=== PATIENT | female | born 1970 | race Caucasian/White ===

== ENCOUNTER → 2016-03-25 | Day surgery (SDC) | payer MEDICARE, OTHER ==
[2016-03-22 12:25] VITALS: BMI 27.4
[2016-03-25 14:16] VITALS: BP 124/83; PULSE 60; RESP 16; TEMP 97.6
--- NOTE | 2016-03-25 19:51 | P.PCN ---
Date of Procedure: 03/25/16 Procedure(s) Performed: OPERATION: Intrathecal pain pump analysis, programming and reprogramming, and intrathecal pain pump refill. PREOPERATIVE DIAGNOSES: 1. near empty intrathecal pain pump time for refill. 2. opioid tolerance 3. failed back surgery syndrome lumbar area POSTOPERATIVE DIAGNOSES: 1. near empty intrathecal pain pump time for refill. 2. 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 CONDITION: Stable. Description of the procedure; Intrathecal pain pump analysed ,it showed patient currently had reservoir volume[8.3 ] mL. The patient is receiving medication hydromorphone concentration 16 mg/ ml, and bupivacaine concentration [12 mg/ml. and baclofen 125 g per mL Patient receiving daily dose of hydromorphone 5.9 mg per day and bupivacaine 4.4 mg/day. And baclofen 46 g per day Pain is The location of the pump ( Right Buttuck ) Prepped with chlorhexidine x3 , then using 22-gauge needle [employer] kit advanced through the pump port, Total of [11 ] ml removed from the pump, the pump refills with the new medication total volume [40 ] ml . The concentration hydromorphone 16 mg /ml , and the bupivacaine concentration [12 ] mg/ml., Baclofen 125 g per mL The patient will continue to see the daily dose hydromorphone 5.9 mg/day and bupivacaine [4.4 ] mg/day and baclofen 46 g per day and patient will follow up with the pain clinic in 3 months.
== END ==
LOC: PNWHC3 13:35
PROVIDERS: ATTEND Specialist
DX: Z45.1 Encounter for adjustment and management of infusion pump (principal); Z79.891 Long term (current) use of opiate analgesic; M96.1 Postlaminectomy syndrome, not elsewhere classified
CPT/HCPCS: 62370

== ENCOUNTER → 2016-06-15 | Day surgery (SDC) | payer MEDICARE, OTHER ==
[2016-06-15 12:30] VITALS: BP 108/73; PULSE 82; RESP 16; TEMP 98
--- NOTE | 2016-06-15 12:55 | P.PCN ---
Date of Procedure: 06/15/16 Anesthesia: none Surgeon: Eddie Awad Pathology: none sent Condition: stable Disposition: no change Description of Procedure: PROCEDURE: Intrathecal pain pump analysis, programming and reprogramming, and intrathecal pain pump refill. PREOPERATIVE DIAGNOSES: 1. near empty intrathecal pain pump time for refill. 2. opioid tolerance 3. lumbar PLPS 4. sacroiliitis, lumbar spondylosis without myelopathy POSTOPERATIVE DIAGNOSES: same ANESTHESIA: None. CONDITION: Stable. INDICATION: This is a 46-year-old patient with a long history of chronic pain secondary to lumbar PLPS, sacroiliitis, and lumbar spondylosis. Patient previously had an intrathecal pump placed, which is now close to empty, and patient presents for refill today. Patient denies any side effects of the intrathecal medication, including new weakness, new numbness, excessive drowsiness or sleepiness, nausea/vomiting, weight gain, or night sweats. Patient also denies suicidal ideation, and reports that the current pain medication is helping control the chronic pain and improve the patient's activities of daily living. DESCRIPTION: The intrathecal pain pump was analyzed and showed that the patient currently has reservoir volume of [9.8] mL. The patient is receiving intrathecal hydromorphone PF at concentration [16] mg/ ml, baclofen 125 mcg/ml and bupivacaine PF at concentration [12] mg/ml. Patient receiving daily dose of hydromorphone [5.9] mg/day, baclofen [46] mcg/ day, and bupivacaine [4.4] mg/day. The location of the pump (right buttock) was prepped with chlorhexidine x3. Then, the 22-gauge needle from the [employer] kit was advanced through the pump port. Total of [13] ml was removed from the pump, and it was refilled with the new medication total volume of [40] ml of a solution containing intrathecal hydromorphone PF at concentration [16] mg/ ml, baclofen 125 mcg/ml and bupivacaine PF at concentration [12] mg/ml The patient will continue with the same daily dose hydromorphone [5.9] mg/day , baclofen [46] mcg/day, and bupivacaine [4.4] mg/day. The patient is is still having back pain and did get benefit from SI RFA procedures in the past. She will be scheduled for a left then right SI RFA in approximately two months.
== END | disposition home or self-care (01) ==
LOC: PNWHC3 12:02
PROVIDERS: ATTEND Anesthesiology
DX: Z45.49 Encounter for adjustment and management of other implanted nervous system device (principal); M96.1 Postlaminectomy syndrome, not elsewhere classified; M46.1 Sacroiliitis, not elsewhere classified; M47.816 Spondylosis without myelopathy or radiculopathy, lumbar region; Z79.891 Long term (current) use of opiate analgesic; Z79.899 Other long term (current) drug therapy
CPT/HCPCS: 62370

== ENCOUNTER → 2016-09-20 | Day surgery (SDC) | payer MEDICARE, OTHER ==
[2016-09-20 11:47] VITALS: BP 110/81; PULSE 95; RESP 18; TEMP 98.2
--- NOTE | 2016-09-20 12:08 | P.PCN ---
Date of Procedure: 09/20/16 Preoperative Diagnosis: Postoperative Diagnosis: Procedure(s) Performed: Implants: Surgeon: Eddie Awad Pathology: none sent Condition: stable Disposition: no change Indications for Procedure: Operative Findings: Description of Procedure: PROCEDURE: Intrathecal pain pump analysis, programming and reprogramming, and intrathecal pain pump refill. PREOPERATIVE DIAGNOSES: 1. near empty intrathecal pain pump time for refill. 2. opioid tolerance 3. lumbar PLPS 4. sacroiliitis, lumbar spondylosis without myelopathy POSTOPERATIVE DIAGNOSES: same ANESTHESIA: None. CONDITION: Stable. INDICATION: This is a 46-year-old patient with a long history of chronic pain secondary to lumbar PLPS, sacroiliitis, and lumbar spondylosis. Patient previously had an intrathecal pump placed, which is now close to empty, and patient presents for refill today. Patient denies any side effects of the intrathecal medication, including new weakness, new numbness, excessive drowsiness or sleepiness, nausea/vomiting, weight gain, or night sweats. Patient also denies suicidal ideation, and reports that the current pain medication is helping control the chronic pain and improve the patient's activities of daily living. DESCRIPTION: The intrathecal pain pump was analyzed and showed that the patient currently has reservoir volume of [4.3] mL. The patient is receiving intrathecal hydromorphone PF at concentration [16] mg/ ml, baclofen 125 mcg/ml and bupivacaine PF at concentration [12] mg/ml. Patient receiving daily dose of hydromorphone [5.9] mg/day, baclofen [46] mcg/ day, and bupivacaine [4.4] mg/day. The location of the pump (right buttock) was prepped with chlorhexidine x3. Then, the 22-gauge needle from the [employer] kit was advanced through the pump port. Total of [7] ml was removed from the pump, and it was refilled with the new medication total volume of [40] ml of a solution containing intrathecal hydromorphone PF at concentration [16] mg/ ml, baclofen 125 mcg/ml and bupivacaine PF at concentration [12] mg/ml The patient will continue with the same daily dose hydromorphone [5.9] mg/day , baclofen [46] mcg/day, and bupivacaine [4.4] mg/day. The patient is is still having back pain and did get benefit from SI RFA procedures in the past. She will be scheduled for a left then right SI RFA in approximately three to four months.
== END ==
LOC: PNWHC3 11:30
PROVIDERS: ATTEND Anesthesiology
DX: G89.29 Other chronic pain (principal); M46.1 Sacroiliitis, not elsewhere classified; M47.816 Spondylosis without myelopathy or radiculopathy, lumbar region; Z79.891 Long term (current) use of opiate analgesic
CPT/HCPCS: 62370

== ENCOUNTER → 2016-12-14 | Day surgery (SDC) | payer MEDICARE, OTHER ==
[2016-12-13 10:18] VITALS: BMI 26.2
[2016-12-14 11:25] VITALS: BP 112/82; PULSE 93; RESP 18; TEMP 98.1
--- NOTE | 2016-12-14 11:55 | P.PN ---
Progress Note - Text Progress Note Date: 12/14/16 PROCEDURE: Intrathecal pain pump analysis, programming and reprogramming, and intrathecal pain pump refill. PREOPERATIVE DIAGNOSES: 1. near empty intrathecal pain pump time for refill. 2. opioid tolerance 3. lumbar PLPS 4. sacroiliitis, lumbar spondylosis without myelopathy POSTOPERATIVE DIAGNOSES: same ANESTHESIA: None. CONDITION: Stable. INDICATION: This is a 46-year-old patient with a long history of chronic pain secondary to lumbar PLPS, sacroiliitis, and lumbar spondylosis. Patient previously had an intrathecal pump placed, which is now close to empty, and patient presents for refill today. Patient denies any side effects of the intrathecal medication, including new weakness, new numbness, excessive drowsiness or sleepiness, nausea/vomiting, weight gain, or night sweats. Patient also denies suicidal ideation, and reports that the current pain medication is helping control the chronic pain and improve the patient's activities of daily living. DESCRIPTION: The intrathecal pain pump was analyzed and showed that the patient currently has reservoir volume of [8.7] mL. The patient is receiving intrathecal hydromorphone PF at concentration [16] mg/ ml, baclofen 125 mcg/ml and bupivacaine PF at concentration [12] mg/ml. Patient receiving daily dose of hydromorphone [5.9] mg/day, baclofen [46] mcg/ day, and bupivacaine [4.4] mg/day. The location of the pump (right buttock) was prepped with chlorhexidine x3. Then, the 22-gauge needle from the [employer] kit was advanced through the pump port. Total of [11.5] ml was removed from the pump, and it was refilled with the new medication total volume of [40] ml of a solution containing intrathecal hydromorphone PF at concentration [16] mg/ ml, baclofen [125] mcg/ml and bupivacaine PF at concentration [12] mg/ml The patient will continue with the same daily dose hydromorphone [5.9] mg/day , baclofen [46] mcg/day, and bupivacaine [4.4] mg/day. The patient is is still having back pain and did get benefit from both SI joint injections and SI RFA procedures in the past. She will be scheduled for a left (then right) SI RFA in approximately three to four months. She is continuing to get her [place] pills from her PCP. Patient will follow up for procedure as scheduled.
== END ==
LOC: PNWHC3 11:11
PROVIDERS: ATTEND Anesthesiology
DX: G89.29 Other chronic pain (principal); M96.1 Postlaminectomy syndrome, not elsewhere classified; M46.1 Sacroiliitis, not elsewhere classified; M47.816 Spondylosis without myelopathy or radiculopathy, lumbar region; Z79.891 Long term (current) use of opiate analgesic
CPT/HCPCS: 62370

== ENCOUNTER 2017-01-24 07:29 | Day surgery (SDC) | payer MEDICARE, OTHER ==
[2017-01-20 13:10] VITALS: BMI 27.9
[~2017-01-24 07:29] MED LIST: LACTATED RINGERS 1,000 ML IV SCH
[2017-01-24] MEDS ORDERED: LIDOCAINE 1% 20 ML VIAL (10MG/ML) FOR IV START INTRADERMA ONE (07:44)
[2017-01-24 08:03] VITALS: RESP 16; TEMP 97.5
[2017-01-24 08:04] LABS: Glucose,Whole Blood 94 mg/dL (75-99)
[2017-01-24] MEDS ORDERED: KETOROLAC 30 MG/ML 1 ML VIAL IVP ONE (08:41)
--- NOTE | 2017-01-24 09:33 | P.PCN ---
Date of Procedure: 01/24/17 Procedure(s) Performed: PREOPERATIVE DIAGNOSIS: 1-Lumbosacral spondylosis with facet arthropathy without myelopathy. 2-Bilateral sacroiliit. 3-failed back surgery syndrome lumbar area post operative Diagnosis: . Same as preoperative diagnosis PROCEDURES: 1- Left radiofrequency thermocoagulation/ablation of the L5 dorsal ramus. 2- Left multi-site radiofrequency thermocoagulation/ablation of the S1, S2, lateral branchs. ( I did not performe the RFA for S# because I was not able to visualize the S3 foramina ) The procedure was performed using fluoroscopic guidance during needle placement to assure proper position and maximize safety . ANESTHESIA: LOCAL ANESTHESIA and IV sedation with versed 2 mg and Fentanyle 100 mcg EBL: NONE INDICATION/MEDICAL NECESSITY: History of low back pain secondary to sacroiliitis and lumbosacral arthropathy unresponsive to more conservative treatments. The patient reported more than 50 % relief of pain symptoms following 2 previous diagnostic blocks with Bupivacaine., With radiofrequency ablation of the sacroiliac joint and she had excellent pain relief, for more than 6 months and she is here for repeat radiofrequency of the sacroiliac joint. PROCEDURE DESCRIPTION: The patient was seen and identified in the preoperative area. Risks, benefits, complications, and alternatives were discussed with the patient. The patient agreed to proceed with the procedure and signed the consent. Vital signs were checked before and after the procedure and they remained stable. Patient ambulated to the procedure room and time out was completed. The patient was placed in the prone position on the procedure table and a pillow was placed under the abdomen to reduce lumbar lordosis. The lumbosacral area was prepped and draped in the usual sterile fashion. Critical pause was taken. L5 Dorsal Ramus RF: Using right oblique fluoroscopy, the junction of the transverse process and the superior articular process of the left S1 vertebra, which correspond to the fluoroscopic image of the "eye of the Jarad dog" was identified. Subsequently, a 10-cm 20 -gauge radiofrequency cannula with a 10-mm active tip was advanced under fluoroscopic guidance until contact was made with periosteum. At this level, the Sensory testing of the L5 dorsal ramus was performed at 50 Hz and 0 to 1 volt with production of concordant pain starting at 0.5 volt. Motor stimulation was done at 2.5 Hz with stimulation of mulitifidus muscle contration . No radicular symptoms or paresthesias were produced during the testing. Subsequently, the L5 dorsal ramus was subjected to a radiofrequency ablation at 80 degree celsius for 90 seconds . after 0.5% Bupivacaine 1 ml injected at each level after negative aspirations . The needle was withdrawn intact the procedure was repeated on the left side using the same technique. S1, S3, Lateral Branch RF: The lateral margins of the left S1, S2, foramina were identified using AP fluoroscopy. Under fluoroscopic guidance, three 10-cm 20 -gauge radiofrequency cannula with a 10-mm active tip were inserted at 8-10 mm peripheral to the posterior S1 foramen, at various locations using clock-face coordinates. The center of the clock was registered at the lateral margin of the foramen. The 9: 30, 8:00, and 6:30 oclock positions were used. At this level, the sensory testing of the S1 lateral branch was performed at 50 Hz and 0 to 1 volt at the three levels with production of concordant pain starting at 0.5 volt. Motor stimulation was done at 2.5 Hz. No radicular symptoms or paresthesias were produced during the testing. Subsequently, the S1 lateral branch was subjected to a radiofrequency ablation at a mode of 90 seconds at 80 degrees Celsius at the 3 levels after negative motor and sensory testing and after injecting 0.5 ml of preservative free Bupivacaine 0.5 %. The same procedure was performed at the level of the S2 foramen. The needle was withdrawn intact after each injection. COMPLICATIONS: The patient tolerated the procedure well without any acute complications. DISPOSTION/PLAN: The patient ambulated to the recovery area after the procedure in a stable condition for observation. Patient was reexamined prior to discharge. Patient was observed for 30 minutes in the recovery area and was discharged home, accompanied by an adult, after meeting discharged criteria. Discharge instructions were give to the patient by the staff. Patient was specifically instructed not to drive today and to rest for the rest of the day. The patient will schedule a follow up visit in the clinic in weeks or earlier if needed. total of 7 ml of marcaine 0.5% mixed with toradol 30 mg used for the procedure
[2017-01-24] MEDS ORDERED: IV FLUID CONTINUATION 1,000 ML IV ONE (09:34)
--- NOTE | 2017-01-24 09:59 | FL ---
Fluoroscopy HISTORY: Pain 12 seconds fluoroscopy time supplied to the referring clinician. 7 intraoperative C-arm images docum ent the procedure. See dictated report from anesthesia.
[2017-01-24 10:00] VITALS: BP 133/87; PULSE 85
== END 2017-01-24 10:16 | disposition home or self-care (01) ==
LOC: ORPAIN 07:29
PROVIDERS: ATTEND Specialist
DX: M46.96 Unspecified inflammatory spondylopathy, lumbar region (principal); M46.1 Sacroiliitis, not elsewhere classified; M96.1 Postlaminectomy syndrome, not elsewhere classified; M47.817 Spondylosis without myelopathy or radiculopathy, lumbosacral region; Z88.5 Allergy status to narcotic agent; Z88.0 Allergy status to penicillin; Z88.8 Allergy status to other drugs, medicaments and biological substances
CPT/HCPCS: 81025; 64640 ×3; 64635; J2250; J3010; J1885; 99152; 99153

== ENCOUNTER 2017-03-02 09:50 | Day surgery (SDC) | payer MEDICARE, OTHER ==
[2017-02-28 11:16] VITALS: BMI 25.7
[2017-03-02 10:08] VITALS: RESP 16; TEMP 97.2
[2017-03-02] MEDS ORDERED: LIDOCAINE 1% 20 ML VIAL (10MG/ML) FOR IV START INTRADERMA ONE (10:16)
[2017-03-02] MEDS ORDERED: LACTATED RINGERS 1,000 ML IV ONE (10:16)
[2017-03-02] MEDS ORDERED: IV FLUID CONTINUATION 1,000 ML IV ONE (11:08)
--- NOTE | 2017-03-02 11:17 | FL ---
EXAMINATION TYPE: FL guided pain mgmt statistic DATE OF EXAM: 03/02/2017 HISTORY: Flouroscopy time 9 seconds of fluoroscopy provided. IMPRESSION: 1. Fluoroscopy time.
[2017-03-02 11:37] VITALS: BP 106/69; PULSE 95
--- NOTE | 2017-03-02 14:32 | P.PCN ---
Date of Procedure: 03/02/17 Surgeon: Eddie Awad Pathology: none sent Condition: stable Disposition: PACU Description of Procedure: PREOPERATIVE DIAGNOSIS: Lumbar spondylosis without myelopathy and facet arthropathy POSTOPERATIVE DIAGNOSIS: Lumbar spondylosis without myelopathy and facet arthropathy PROCEDURES: Right Radiofrequency thermocoagulation, L3-L4, L4-L5, and L5-S1 medial branch, with fluoroscopic guidance. ANESTHESIA: 1% lidocaine plain; Conscious sedation with versed/fentanyl EBL: Minimal PROCEDURE INDICATION: The patient with low back pain secondary to lumbar arthropathy who had more than 50% relief of pain with previous diagnostic lumbar medial branch block with bupivacaine. Patient presents for RFA today; no use of blood thinners. PROCEDURE DESCRIPTION / TECHNIQUE: The patient was seen and identified in the preoperative area. Risks, benefits, complications, and alternatives were discussed with the patient (including but not limited to incomplete pain relief , bleeding, infection, nerve damage, and allergies to medications), the patient agreed to proceed with the procedure and signed the consent after all questions were answered. Patient was taken to the OR and time out was completed to verify proper patient , position, laterality of pain, and allergies. Pt was placed in the prone position. IV was started. Vital signs remained stable throughout the procedure. A pillow was placed under the patients chest to decrease lordosis. The lumbosacral area was prepped and draped in the usual sterile fashion. Vital signs were closely monitored during the procedure. Conscious sedation was used during the procedure to decrease patients anxiety. Using AP and then oblique fluoroscopy, the intrathecal pump and catheter were identified and avoided throughout the process of the procedure. Then, again using fluoroscopy, the eye of the Jarad dog corresponding to the connection between the superior and transverse articular processes of right L3, L4, L5 and top of the sacrum were identified, marked, and localized with 1% lidocaine. Subsequently, a 18 gauge, 100-mm radiofrequency cannula with a 10- mm active tip was advanced guided by fluoroscopy to each of the eyes of the Jarad dog at the levels of all four medial branches. Each site then underwent sensory testing at 50 Hz and 0 to 1 volt and motor testing at 2 Hz and 0 to 3 volt with local stimulation, but no radicular symptoms down the legs. Thereafter all four medial branch sites underwent radiofrequency thermocoagulation at 80 degrees Celsius for 90 seconds after injecting 0.5 ml of PF lidocaine 1%. After thermocoagulation, 1 ml of the block solution containing Kenalog 40 mg and 2 mL of preservative-free normal saline was injected at all four medial branch levels after negative aspiration of CSF and blood and with no paresthesias. Cannulas were retracted while injecting lidocaine 1% until the needles were removed. At the end of the procedure, the skin was cleansed and bandages were applied. COMPLICATIONS: No acute complications. DISPOSITION / PLANS: The patient was placed in a supine position and transferred to the recovery area in a stable condition for observation and was discharged from the recovery room after meeting discharge criteria. Home discharge instructions given to the patient by the staff. The patient was reexamined prior to discharge and there were no issues. The patient will schedule a follow up in the clinic for pump refill in 2-3 weeks.
== END 2017-03-02 11:47 | disposition home or self-care (01) ==
LOC: ORPAIN 09:50
PROVIDERS: ATTEND Anesthesiology
DX: M47.816 Spondylosis without myelopathy or radiculopathy, lumbar region (principal); M46.96 Unspecified inflammatory spondylopathy, lumbar region; M96.1 Postlaminectomy syndrome, not elsewhere classified; I10 Essential (primary) hypertension; Z88.6 Allergy status to analgesic agent; Z88.0 Allergy status to penicillin; Z88.5 Allergy status to narcotic agent
CPT/HCPCS: 64635; 64636 ×2; 81025; J2250; J3010; 99152

== ENCOUNTER → 2017-03-15 | Day surgery (SDC) | payer MEDICARE, OTHER ==
[2017-03-09 11:19] VITALS: BMI 27.4
--- NOTE | 2017-03-15 12:55 | P.PN ---
Progress Note - Text Progress Note Date: 03/15/17 PROCEDURE: Intrathecal pain pump analysis, programming and reprogramming, and intrathecal pain pump refill. PREOPERATIVE DIAGNOSES: 1. near empty intrathecal pain pump time for refill. 2. opioid tolerance 3. lumbar PLPS 4. sacroiliitis, lumbar spondylosis without myelopathy POSTOPERATIVE DIAGNOSES: same ANESTHESIA: None. CONDITION: Stable. INDICATION: This is a 46-year-old patient with a long history of chronic pain secondary to lumbar PLPS, sacroiliitis, and lumbar spondylosis. Patient previously had an intrathecal pump placed, which is now close to empty, and patient presents for refill today. Patient denies any side effects of the intrathecal medication, including new weakness, new numbness, excessive drowsiness or sleepiness, nausea/vomiting, weight gain, or night sweats. Patient also denies suicidal ideation, and reports that the current pain medication is helping control the chronic pain and improve the patient's activities of daily living. DESCRIPTION: The intrathecal pain pump was analyzed and showed that the patient currently has reservoir volume of [8.7] mL. The patient is receiving intrathecal hydromorphone PF at concentration [16] mg/ ml, baclofen 125 mcg/ml and bupivacaine PF at concentration [12] mg/ml. Patient receiving daily dose of hydromorphone [5.9] mg/day, baclofen [46] mcg/ day, and bupivacaine [4.4] mg/day. The location of the pump (right buttock) was prepped with chlorhexidine x3. Then, the 22-gauge needle from the [employer] kit was advanced through the pump port. Total of [11.5] ml was removed from the pump, and it was refilled with the new medication total volume of [40] ml of a solution containing intrathecal hydromorphone PF at concentration [16] mg/ ml, baclofen [125] mcg/ml and bupivacaine PF at concentration [12] mg/ml. The patient will continue with the same daily dose hydromorphone [5.9] mg/day , baclofen [46] mcg/day, and bupivacaine [4.4] mg/day. The patient did get good relief from bilateral SI RFA, but is still having severe spasms in her low back. She is getting her oral medications from her primary care physician. She will return to our clinic for pump refill in approximately three months. For next refill, we will plan to increase baclofen to 60 mcg/day and keep other medications the same, as she is having increased muscle spasms.
[2017-03-15 23:26] VITALS: BP 118/78; PULSE 102; RESP 16; TEMP 97.9
== END ==
LOC: PNWHC3 11:58
PROVIDERS: ATTEND Anesthesiology
DX: G89.29 Other chronic pain (principal); M96.1 Postlaminectomy syndrome, not elsewhere classified; M46.1 Sacroiliitis, not elsewhere classified; M47.816 Spondylosis without myelopathy or radiculopathy, lumbar region; Z45.1 Encounter for adjustment and management of infusion pump; Z79.891 Long term (current) use of opiate analgesic
CPT/HCPCS: 62370

== ENCOUNTER → 2017-05-24 | Day surgery (SDC) | payer MEDICARE, OTHER ==
[2017-05-24 12:55] VITALS: BP 116/85; PULSE 92; RESP 18; TEMP 97.5
--- NOTE | 2017-05-24 13:21 | P.PN ---
Progress Note - Text Progress Note Date: 05/24/17 PROCEDURE: Intrathecal pain pump analysis, programming and reprogramming, and intrathecal pain pump refill. PREOPERATIVE DIAGNOSES: 1. near empty intrathecal pain pump time for refill. 2. opioid tolerance 3. lumbar PLPS 4. sacroiliitis, lumbar spondylosis without myelopathy POSTOPERATIVE DIAGNOSES: same ANESTHESIA: None. CONDITION: Stable. INDICATION: This is a 47-year-old patient with a long history of chronic pain secondary to lumbar PLPS, sacroiliitis, and lumbar spondylosis. Patient previously had an intrathecal pump placed, which is now close to empty, and patient presents for refill today. Patient denies any side effects of the intrathecal medication, including new weakness, new numbness, excessive drowsiness or sleepiness, nausea/vomiting, weight gain, or night sweats. Patient also denies suicidal ideation, and reports that the current pain medication is helping control the chronic pain and improve the patient's activities of daily living. DESCRIPTION: The intrathecal pain pump was analyzed and showed that the patient currently has reservoir volume of [14.2] mL. The patient is receiving intrathecal hydromorphone PF at concentration [16] mg/ ml, baclofen 125 mcg/ml and bupivacaine PF at concentration [12] mg/ml. Patient receiving daily dose of hydromorphone [5.9] mg/day, baclofen [46] mcg/ day, and bupivacaine [4.4] mg/day. The location of the pump (right buttock) was prepped with chlorhexidine x3. Then, the 22-gauge needle from the [employer] kit was advanced through the pump port. Total of [16] ml was removed from the pump, and it was refilled with the new medication total volume of [40] ml of a solution containing intrathecal hydromorphone PF at concentration [16] mg/ ml, baclofen [125] mcg/ml and bupivacaine PF at concentration [12] mg/ml. The patient will continue with the same daily dose hydromorphone [5.9] mg/day , baclofen [46] mcg/day, and bupivacaine [4.4] mg/day. The patient did get good relief from bilateral SI RFA, but is still having severe spasms in her low back. She is getting her oral medications from her primary care physician. She will return to our clinic for pump refill in approximately three months. For next refill, we will plan to increase baclofen to 60 mcg/day (increase baclofen concentration to 163 mcg/ml) and keep other medications the same, as she is having increased muscle spasms.
== END ==
LOC: PNWHC3 12:06
PROVIDERS: ATTEND Anesthesiology
DX: G89.29 Other chronic pain (principal); M96.1 Postlaminectomy syndrome, not elsewhere classified; M46.1 Sacroiliitis, not elsewhere classified; M47.816 Spondylosis without myelopathy or radiculopathy, lumbar region; Z79.891 Long term (current) use of opiate analgesic
CPT/HCPCS: 62370

== ENCOUNTER → 2017-07-10 | Outpatient (CLI) | payer MEDICARE, OTHER ==
--- NOTE | 2017-07-13 09:57 | MM ---
Reason for exam: screening (asymptomatic). History: Patient is postmenopausal and is nulliparous. Family history of breast cancer in maternal aunt and breast cancer in paternal aunt. Physical Findings: A clinical breast exam by your physician is recommended on an annual basis and results should be correlated with mammographic findings. MG Screening Mammo w CAD Bilateral CC and MLO view(s) were taken. No prior studies available for comparison. The breast tissue is extremely dense which could obscure a lesion on mammography. No significant changes when compared with prior studies. ASSESSMENT: Benign, BI-RAD 2 RECOMMENDATION: Routine screening mammogram of both breasts in 1 year.
== END | disposition home or self-care (01) ==
LOC: RADMAMWWP 11:40
PROVIDERS: ATTEND Family Medicine
DX: Z12.31 Encounter for screening mammogram for malignant neoplasm of breast (principal)
CPT/HCPCS: 77067

== ENCOUNTER → 2017-08-23 | Day surgery (SDC) | payer MEDICARE, OTHER ==
[2017-08-22 14:42] VITALS: BMI 25.7
[2017-08-23 12:28] VITALS: BP 123/69; PULSE 100; RESP 20
--- NOTE | 2017-08-23 12:38 | P.PN ---
Progress Note - Text Progress Note Date: 08/23/17 PROCEDURE: Intrathecal pain pump analysis, programming and reprogramming, and intrathecal pain pump refill. PREOPERATIVE DIAGNOSES: 1. near empty intrathecal pain pump time for refill. 2. opioid tolerance 3. lumbar PLPS 4. sacroiliitis, lumbar spondylosis without myelopathy POSTOPERATIVE DIAGNOSES: same ANESTHESIA: None. CONDITION: Stable. INDICATION: This is a 47-year-old patient with a long history of chronic pain secondary to lumbar PLPS, sacroiliitis, and lumbar spondylosis. Patient previously had an intrathecal pump placed, which is now close to empty, and patient presents for refill today. Patient denies any side effects of the intrathecal medication, including new weakness, new numbness, excessive drowsiness or sleepiness, nausea/vomiting, weight gain, or night sweats. Patient also denies suicidal ideation, and reports that the current pain medication is helping control the chronic pain and improve the patient's activities of daily living. DESCRIPTION: The intrathecal pain pump was analyzed and showed that the patient currently has reservoir volume of [6.5] mL. The patient is receiving intrathecal hydromorphone PF at concentration [16] mg/ ml, baclofen 125 mcg/ml and bupivacaine PF at concentration [12] mg/ml. Patient receiving daily dose of hydromorphone [5.9] mg/day, baclofen [46] mcg/ day, and bupivacaine [4.4] mg/day. The location of the pump (right buttock) was prepped with chlorhexidine x3. Then, the 22-gauge needle from the [employer] kit was advanced through the pump port. Total of [9] ml was removed from the pump, and it was refilled with the new medication total volume of [40] ml of a solution containing intrathecal hydromorphone PF at concentration [16] mg/ ml, baclofen [163] mcg/ml and bupivacaine PF at concentration [12] mg/ml. The patient will continue with the same daily dose hydromorphone [5.9] mg/day , baclofen [60] mcg/day, and bupivacaine [4.4] mg/day. The patient did get good relief from bilateral SI RFA, but is still having severe spasms in her low back. She is getting her oral medications from her primary care physician. She will return to our clinic for pump refill in approximately three months. Will order CT scan of thoracic spine to discuss further options.
== END ==
LOC: PNWHC3 12:06
PROVIDERS: ATTEND Anesthesiology
DX: G89.29 Other chronic pain (principal); Z45.1 Encounter for adjustment and management of infusion pump; M96.1 Postlaminectomy syndrome, not elsewhere classified; M46.1 Sacroiliitis, not elsewhere classified; M47.816 Spondylosis without myelopathy or radiculopathy, lumbar region; Z79.891 Long term (current) use of opiate analgesic
CPT/HCPCS: 62370

== ENCOUNTER → 2017-11-08 | Day surgery (SDC) | payer MEDICARE, OTHER ==
[2017-11-08 11:34] VITALS: BP 117/75; PULSE 83; RESP 16
--- NOTE | 2017-11-08 12:42 | P.PCN ---
Date of Procedure: 11/08/17 Procedure(s) Performed: PROCEDURE: Intrathecal pain pump analysis, programming and reprogramming, and intrathecal pain pump refill. PREOPERATIVE DIAGNOSES: 1. near empty intrathecal pain pump time for refill. 2. opioid tolerance 3. lumbar PLPS 4. sacroiliitis, lumbar spondylosis without myelopathy POSTOPERATIVE DIAGNOSES: same ANESTHESIA: None. CONDITION: Stable. INDICATION: This is a 47-year-old patient with a long history of chronic pain secondary to lumbar PLPS, sacroiliitis, and lumbar spondylosis. Patient previously had an intrathecal pump placed, which is now close to empty, and patient presents for refill today. Patient denies any side effects of the intrathecal medication, including new weakness, new numbness, excessive drowsiness or sleepiness, nausea/vomiting, weight gain, or night sweats. Patient also denies suicidal ideation, and reports that the current pain medication is helping control the chronic pain and improve the patient's activities of daily living, patient complaining of increased pain in the mid back area upper back area. We will order computed tomography scan of the thoracic spine and she is here today to discuss the results of the computed tomography scan, I reviewed the report and it showed the patient had multilevel thoracic degenerative disc disease and thoracic spondylosis with facet arthropathy T6 7 and T7 8,. DESCRIPTION: The intrathecal pain pump was analyzed and showed that the patient currently has reservoir volume of [11.6] mL. The patient is receiving intrathecal hydromorphone PF at concentration [16] mg/ ml, baclofen 163 mcg/ml and bupivacaine PF at concentration [12] mg/ml. Patient receiving daily dose of hydromorphone [5.9] mg/day, baclofen [60 ] mcg /day, and bupivacaine [4.4] mg/day. The location of the pump (right buttock) was prepped with chlorhexidine x3. Then , the 22-gauge needle from the [employer] kit was advanced through the pump port.Total of [13 ] ml was removed from the pump, and it was refilled with the new medication total volume of [40] ml of a solution containing intrathecal hydromorphone PF at concentration [16] mg/ ml, baclofen [163] mcg/ml and bupivacaine PF at concentration [12] mg/ml. The patient will continue with the same daily dose hydromorphone [5.9] mg/day , baclofen [60] mcg/day, and bupivacaine [4.4] mg/day. Patient will be scheduled to have diagnostic medial branch block thoracic area T67/ T7 8/ and T8 9 and bilaterally, will be done twice and if she had more than 50% improvement in her upper back pain, then she would be good candidate to have radiofrequency ablation of the thoracic medial branch, procedure risk and benefits and alternatives discussed with the patient and she agreed with the preceding.
== END ==
LOC: PNWHC3 10:55
PROVIDERS: ATTEND Specialist
DX: G89.29 Other chronic pain (principal); Z45.1 Encounter for adjustment and management of infusion pump; M96.1 Postlaminectomy syndrome, not elsewhere classified; M46.1 Sacroiliitis, not elsewhere classified; M47.816 Spondylosis without myelopathy or radiculopathy, lumbar region; Z79.891 Long term (current) use of opiate analgesic
CPT/HCPCS: 62370

== ENCOUNTER 2017-11-22 06:31 | Day surgery (SDC) | payer MEDICARE, OTHER ==
[2017-11-17 11:02] VITALS: BMI 25.7
[2017-11-22 06:44] VITALS: TEMP 97.6
[2017-11-22] MEDS ORDERED: LIDOCAINE 1% 20 ML VIAL (10MG/ML) FOR IV START INTRADERMA ONE (06:49)
[2017-11-22] MEDS ORDERED: IV FLUID CONTINUATION 1,000 ML IV ONE ×2 (07:17)
--- NOTE | 2017-11-22 07:27 | P.PCN ---
Date of Procedure: 11/22/17 Surgeon: Janak Rivera Description of Procedure: PREOPERATIVE DIAGNOSIS : Thoracic spondylosis with Facet Arthropathy without myelopathy POSTOPERATIVE DIAGNOSIS: same PROCEDURE: Diagnostic thoracic medial branch block with fluoroscopy at bilateral T6, T7, T8 ANESTHESIA: Local anesthetic; IV sedation with 2 mg of midazolam as limb and 100 mg of fentanyl Surgeon: Janak Rivera MD PROCEDURE INDICATION: This a very pleasant 47-year-old woman with a history of intractable mid back pain who presents today for diagnostic thoracic medial branch nerve blocks. PROCEDURE DESCRIPTION: The patient was identified and evaluated in the preop holding area , risks and benefits and possible complications of the procedure and alternative were discussed with the patient, and the patient agreed to proceed with the procedure and signed the consent IV was started and vital signs monitored during the procedure and fluoroscopy was used to maximize the benefit and accuracy of the needle placement, and sedation was given to decrease patient anxiety, patient was taken to the procedure room and placed in prone position vital signs monitored in the back prepped. Under strict sterile technique using a right oblique fluoroscopy ,the junction of the transverse process and the superior articulating process of the vertebral body which corresponding to the fluoroscopy image of the eye of the Jarad dog on the block side for the medial branches and subsequently , a 25-gauge 3.5 inch Quincke-type needles was placed at the junction of the base of the transverse process and the superior articular process at the appropriate level, and the needle was advanced until the periosteum contacted, needle placement confirmed with AP oblique and lateral view and after appropriate needle placement confirmed, and after negative aspiration, 0.5 mL of Marcaine 0.5% was injected at each level and the needle subsequently removed. At the end of the procedure and the needles removed and a bandage applied after the skin was cleaned the cleaning solution patient taken to recovery room in stable condition and monitors in the recovery room for 20-30 minutes and discharged home in stable condition after discharge criteria met and patient will follow up for repeat of this procedure in 2-4 weeks. If she received good benefit from both of these diagnostic blocks, I would recommend proceeding to radio frequency ablation. This plan was discussed with the patient.. EBL: Minimal COMPLICATION: None.
[2017-11-22 07:40] VITALS: BP 121/80; PULSE 78; RESP 18
--- NOTE | 2017-11-22 10:56 | FL ---
Fluoroscopy HISTORY: Pain 3 seconds fluoroscopy time supplied to the referring clinician. 1 intraoperative C-arm images docume nt the procedure. See dictated report from anesthesia.
== END 2017-11-22 07:49 | disposition home or self-care (01) ==
LOC: ORPAIN 06:31
PROVIDERS: ATTEND Pain Medicine Pain Medicine
DX: M47.814 Spondylosis without myelopathy or radiculopathy, thoracic region (principal); M96.1 Postlaminectomy syndrome, not elsewhere classified; M46.1 Sacroiliitis, not elsewhere classified; M47.816 Spondylosis without myelopathy or radiculopathy, lumbar region; G89.29 Other chronic pain; Z79.891 Long term (current) use of opiate analgesic; Z88.6 Allergy status to analgesic agent; Z88.5 Allergy status to narcotic agent; Z88.0 Allergy status to penicillin
CPT/HCPCS: 81025; 64490; 64491; J2250; J3010

== ENCOUNTER 2017-12-07 07:30 | Day surgery (SDC) | payer MEDICARE, OTHER ==
[2017-12-04 15:10] VITALS: BMI 24.7
[2017-12-07 08:30] VITALS: RESP 16; TEMP 97.4
[2017-12-07] MEDS ORDERED: LIDOCAINE 1% 20 ML VIAL (10MG/ML) FOR IV START INTRADERMA ONE (08:36)
--- NOTE | 2017-12-07 09:16 | P.PCN ---
Date of Procedure: 12/07/17 Procedure(s) Performed: PREOPERATIVE DIAGNOSIS : Thoracic spondylosis with Facet Arthropathy without myelopathy POSTOPERATIVE DIAGNOSIS: same PROCEDURE: Diagnostic thoracic medial branch block with fluoroscopy at bilateral T6, T7, T8 ( 3 Leveles ) ANESTHESIA:moderate sedation with 2 mg of midazolam , and 100 mg of fentanyl Surgeon: Janak Rivera MD PROCEDURE INDICATION: This a very pleasant 47-year-old woman with a history of intractable mid back pain who presents today for diagnostic thoracic medial branch nerve blocks. PROCEDURE DESCRIPTION: The patient was identified and evaluated in the preop holding area , risks and benefits and possible complications of the procedure and alternative were discussed with the patient, and the patient agreed to proceed with the procedure and signed the consent IV was started and vital signs monitored during the procedure and fluoroscopy was used to maximize the benefit and accuracy of the needle placement, and sedation was given to decrease patient anxiety, patient was taken to the procedure room and placed in prone position vital signs monitored in the back prepped. Under strict sterile technique using a right oblique fluoroscopy ,the junction of the transverse process and the superior articulating process of the vertebral body which corresponding to the fluoroscopy image of the eye of the Jarad dog on the block side for the medial branches and subsequently , a 25-gauge 3.5 inch Quincke-type needles was placed at the junction of the base of the transverse process and the superior articular process at the appropriate level, and the needle was advanced until the periosteum contacted, needle placement confirmed with AP oblique and lateral view and after appropriate needle placement confirmed, and after negative aspiration, 0.5 mL of Marcaine 0.5% was injected at each level and the needle subsequently removed. At the end of the procedure and the needles removed and a bandage applied after the skin was cleaned the cleaning solution patient taken to recovery room in stable condition and monitors in the recovery room for 20-30 minutes and discharged home in stable condition after discharge criteria met and patient will follow up for repeat of this procedure in 2-4 weeks. If she received good benefit from both of these diagnostic blocks, I would recommend proceeding to radio frequency ablation. This plan was discussed with the patient.. EBL: Minimal COMPLICATION: None.
[2017-12-07] MEDS ORDERED: IV FLUID CONTINUATION 1,000 ML IV ONE (09:23)
--- NOTE | 2017-12-07 09:35 | FL ---
EXAMINATION TYPE: FL guided pain mgmt statistic DATE OF EXAM: 12/07/2017 HISTORY: Flouroscopy time 28 seconds of fluoroscopy provided. IMPRESSION: 1. Fluoroscopy time.
[2017-12-07 10:00] VITALS: BP 124/80; PULSE 80
--- NOTE | 2017-12-07 10:19 | XR ---
EXAMINATION TYPE: XR chest 1V portable DATE OF EXAM: 12/07/2017 Comparison: None Clinical History: 47-year-old female status post pain management procedure, rule out pneumothorax Findings: The cardiomediastinal silhouette, aorta, and pulmonary vasculature are within normal limits. No pneu mothorax. There is some patchy left basilar opacity which may be part related to overlying soft tissu e. No pleural effusion. Impression: Some density at the left base may in part relate to overlying soft tissue. Consider follow-up to excl ude patchy atelectasis or developing infiltrate. No pneumothorax.
== END 2017-12-07 10:32 | disposition home or self-care (01) ==
LOC: ORPAIN 07:30
PROVIDERS: ATTEND Specialist
DX: M47.814 Spondylosis without myelopathy or radiculopathy, thoracic region (principal); Z88.5 Allergy status to narcotic agent; Z88.2 Allergy status to sulfonamides; Z88.0 Allergy status to penicillin; Z88.8 Allergy status to other drugs, medicaments and biological substances
CPT/HCPCS: 64492; 71045; 81025; 99152

== ENCOUNTER → 2018-01-09 | Outpatient (CLI) | payer MEDICARE, OTHER ==
[2018-01-09 13:08] VITALS: BP 124/80; PULSE 86; RESP 18
--- NOTE | 2018-01-09 15:22 | P.PAINPG ---
Subjective Progress Note Date: 01/09/18 This is a follow-up visit for this 47 years old female with a chronic history of severe midback pain and low back pain, she is diagnosed with thoracic spondylosis, thoracic facet arthropathy ,lumbar spondylosis with lumbar facet arthropathy, and sacroiliitis, patient had chronic severe low back pain also secondary to failed back surgery syndrome and lumbar area, she is on intrathecal pain therapy, and she continued to have severe low back pain, patient had diagnostic medial branch blocks thoracic area done recently, and she reported that the diagnostic medial branch blocks thoracic area helped her mid back pain significantly, her mid back pain improved more than 50% for short- term after each diagnostic medial branch blocks thoracic area, and also in the past we've done sacroiliac joint steroid injections, which was successful and later on it was followed with radiofrequency ablation of the sacroiliac joint, also we've done diagnostic medial branch block lumbar area and it was successful also on it was followed with radiofrequency ablation of the medial branch lumbar area, currently she reported that most of her pain is on the low back area localized in the left side and radiated to the left buttock area, she denies any motor or sensory deficit, she denies any fever or night sweats, she denies any change in the bowel movement or urination Objective - Vital Signs Vital signs: Vital Signs Temp Pulse 86 01/09/18 12:59 Resp 18 01/09/18 12:59 BP 124/80 01/09/18 12:59 Pulse Ox 97 01/09/18 12:59 Intake & Output 01/08/18 01/09/18 01/09/18 18:59 06:59 18:59 Weight 68.039 kg - Exam Physical Examinations : 1-Constitutiona : Cooperative , not in acute distress . 2-HEENT : nech ; supple , no Lymphadenopathy , normal thyroid size . eyes : no ptosis , no icterus, no photophobia . ENT : normal of hearing , normal oropharynx , no Thrush . 3- Respiratory : Chest clear to auscultations Bilaterally , no wheezing , no Rhonchi . 4- Cardiovascular : regular rate and rhythem , S1 , S2 , no S3 , no S4. 5- Gastrointestinal : abdomen soft no tenderness , bowel sounds , no organomegally . 6- Genitourinary : Defferred . 7- neurologic : Cranial nerve II to XII intact , no focal neurological deffecit . 8-psychatric : alert , oriented X 3 , appropriate affect , intact judgment and insight . 9-Lymphatic : no Lymphadenopathy . 10- musculoskeltal : Thoracic Spine positive Thoracic facet loading test . Lumber spine moter stegnth lower extremities , thigh and legs 5/5 Right side , 5/5 Left side deep tendon reflexes : normal Knee Jerk , normal ankle Jerk positive lumber facet Loading Test Range of motion of the lumbar spine Flexion 30 degrees, extension 10 degrees strait leg raising test negative bilaterally Fabere test negative bilaterally. Sever tenderness over the Sacroiliac joint on the Left sides Assessment and Plan Plan: Assessment and plan=1-chronic severe midback pain secondary to thoracic spondylosis patient had a good result after the diagnostic medial branch blocks thoracic area, and she will be good candidate for radiofrequency ablation of the thoracic medial branch. 2-chronic severe low back pain secondary to lumbar spondylosis with lumbar facet arthropathy with arthropathy, 3-sacroiliitis The patient reported that most of her pain is localized in the low back area and on the left side and examination support that the patient had been secondary to left sacroiliitis , Patient will be good candidate to have radiofrequency ablation of the peripheral branches S1/S2/S3 ( Left sacroiliac joint ), procedure risk and benefits and alternatives discussed with the patient she agreed with proceeding Time with Patient: Less than 30 PQRS Measure Charge Sheet Measure #130: Documentation of Current Meds in Medical Chart: Patient's medications documented in chart Measure #226: Tobacco Use: Screen & Cessation Intervention: Pt not a tobacco user Measure #111: Pneumonia Vaccination: Pneumococcal vaccine NOT administered or previously given Measure #47: Advance Care Plan: Advance care planning discussed & documented, pt chose/unable to give Measure #412: Opioid Treatment Agreement: Documented signed opioid trtmnt agreemnt min once during opioid trtmnt Measure #408: Opioid Therapy Follow-up Evaluation: Patient had f/u eval minimum every 3 months during opioid therapy Measure #317: Preventitive Care & Scrn High Bld Press & F/U: Normal blood pressure, f/u not required Measure #128: Body Mass Index (BMI) Screening & Follow-up: BMI documented ABOVE normal parameters - f/u documented Measure #131: Pain Assessment & Follow-up: Pain positive & plan documented, Follow-up scheduled Measure #431: Unhealthy Alcohol Use Preventative Care & Scrn: Patient not identified as an unhealthy alcohol user PQRS Narrative: Smoking Status Former smoker Do You Want the Pneumonia No Vaccine AT THIS TIME? Narcotic Agreement Date Signed 01/01/14 Blood Pressure 124/80 Pain Intensity [Back] 7 Scale Used Numeric (1 - 10) Hx Alcohol Use (MH) No Home Medications: Ambulatory Orders Esomeprazole Magnesium [NexIUM] 40 mg PO QAM 08/12/13 HYDROcodone/APAP 10-325MG [[place] 10-325] 1 tab PO TID PRN 08/12/13 Intrathecal Opioid 0 mg INTRATHECA DIRECTED 08/12/13 Lidocaine 5% Patch [Lidoderm 5% Patch] 1 - 3 patch TOPICAL DAILY PRN 08/12/13 Multivitamin with Iron [Daily Multivitamin with Iron] 1 tab PO DAILY 08/12/13 Pravastatin Sodium [Pravachol] 20 mg PO HS 08/12/13 Furosemide [Lasix] 20 mg PO DAILY PRN 03/18/15 Cholecalciferol [Vitamin D3] 5,000 unit PO DAILY 06/17/15 DULoxetine HCL [Cymbalta] 60 mg PO HS 03/09/17 Gabapentin [Neurontin] 600 mg PO BID 03/09/17 Ascorbic Acid [Vitamin C] 1,000 mg PO DAILY 08/22/17 Magnesium Oxide [Valencia] 500 mg PO DAILY 08/22/17 Controlled Substance Measures - Controlled Substance Measures Is patient prescribed a controlled substance at discharge?: Yes When asked, does pt state using other controlled substances?: No If prescribed controlled substance>3 days was MAPS reviewed?: Yes If Rx opioid, was Start Talking consent form obtained?: Yes If opioid is for acute pain is fill amount 7 days or less?: No Was information provided regarding opioid addiction?: Yes
== END | disposition home or self-care (01) ==
LOC: PNWHC3 12:50
PROVIDERS: ATTEND Specialist
DX: G89.29 Other chronic pain (principal); M47.814 Spondylosis without myelopathy or radiculopathy, thoracic region; M47.816 Spondylosis without myelopathy or radiculopathy, lumbar region; M46.96 Unspecified inflammatory spondylopathy, lumbar region; M46.1 Sacroiliitis, not elsewhere classified; Z87.891 Personal history of nicotine dependence; Z98.890 Other specified postprocedural states; Z79.891 Long term (current) use of opiate analgesic; Z79.899 Other long term (current) drug therapy
CPT/HCPCS: 99211

== ENCOUNTER → 2018-01-17 | Day surgery (SDC) | payer MEDICARE, OTHER ==
[2018-01-17 11:55] VITALS: BP 98/58; PULSE 81; RESP 18
--- NOTE | 2018-01-17 12:48 | P.PN ---
Subjective Progress Note Date: 01/17/18 This is a 47-year-old female with history of lumbar postlaminectomy pain syndrome. The patient uses intrathecal opioids through the pump and oral opioids to control her pain. She denies any new developments since last time we saw her in the clinic. She gets pain in her right calf occasionally but she denies any new paresthesia in the lower extremities or any bowel or bladder dysfunction. She gets her oral opioids from her primary care physician including [place] 5 mg. She she gets hydromorphone at 5.9 mg per day for pump With bupivacaine and baclofen. Neuro exam she has decreased left knee reflex compared to the right side and she has absent ankle reflexes bilaterally. She has decreased but symmetrical muscle strength in the lower extremities to 4 out of 5. We will do an intrathecal pump programming and refill today I will see her 3 months from now Objective - Vital Signs Vital signs: Vital Signs Temp Pulse 81 01/17/18 11:39 Resp 18 01/17/18 11:39 BP 98/58 01/17/18 11:39 Pulse Ox 94 L 01/17/18 11:39 Intake & Output 01/16/18 01/17/18 01/17/18 18:59 06:59 18:59 Weight 68.039 kg
--- NOTE | 2018-01-17 12:52 | P.PCN ---
Date of Procedure: 01/17/18 Preoperative Diagnosis: Failed back surgery syndrome Near empty intrathecal hydromorphone pump Postoperative Diagnosis: Failed back surgery syndrome Anesthesia: none Surgeon: Fanny Chau Pathology: none sent Condition: stable Description of Procedure: The patient assumed the left lateral decubitus position. Skin was prepped with DuraPrep and draped in a sterile manner. The 22-gauge ID [employer] needle to go through the access port of the pump and obtained 14.2 MLS of the residual solution. I then injected through a filter 40 mls of the new solution of hydromorphone mixed with bupivacaine and baclofen intermittently with frequent aspirations to avoid any subcu infiltration of the solution. The needle then was taken out and the pump was reprogrammed with no changes. Band-Aid was placed on the access side. The solution has 16 mg per mL of hydromorphone and 12 mg per mL of bupivacaine and 163 mcg of baclofen.
== END | disposition home or self-care (01) ==
LOC: PNWHC3 11:25
PROVIDERS: ATTEND Anesthesiology
DX: M96.1 Postlaminectomy syndrome, not elsewhere classified (principal); Z45.1 Encounter for adjustment and management of infusion pump; M79.18 Myalgia, other site
CPT/HCPCS: 62370

== ENCOUNTER 2018-02-22 08:03 | Day surgery (SDC) | payer MEDICARE, OTHER ==
[2018-02-20 14:30] VITALS: BMI 25.7
[~2018-02-22 08:03] MED LIST changes: -LACTATED RINGERS 1,000 ML IV SCH; +SODIUM CHLORIDE 0.9% 500 ML 500 ML IV SCH
[2018-02-22 08:38] VITALS: TEMP 97.9
[2018-02-22] MEDS ORDERED: LACTATED RINGERS 1,000 ML IV ONE (08:46)
[2018-02-22] MEDS ORDERED: LIDOCAINE 1% 20 ML VIAL (10MG/ML) FOR IV START INTRADERMA ONE (08:48)
--- NOTE | 2018-02-22 09:58 | P.PCN ---
Date of Procedure: 02/22/18 Procedure(s) Performed: PREOPERATIVE DIAGNOSIS: 1-Lumbosacral spondylosis with facet arthropathy without myelopathy. 2-sacroiliit. post operative Diagnosis: . 1-Lumbosacral spondylosis with facet arthropathy without myelopathy. 2- sacroiliit. PROCEDURES: 1- Left multi-site radiofrequency thermocoagulation/ablation of the S1, S2, and S3 lateral branchs. ( 3 peripheral nerves ) The procedure was performed using fluoroscopic guidance during needle placement to assure proper position and maximize safety . ANESTHESIA: LOCAL ANESTHESIA = moderate sedation with intravenous versed 4 mg and Fentanyle 100mcg EBL: NONE INDICATION/MEDICAL NECESSITY: History of low back pain secondary to left sacroiliitis and lumbosacral arthropathy unresponsive to more conservative treatments. The patient reported more than 50% relief of pain symptoms following the diagnostic block and later on we have done radiofrequency ablation of the left sacroiliac joint, and patient gets good pain relief for more than 6 months, PROCEDURE DESCRIPTION: The patient was seen and identified in the preoperative area. Risks, benefits, complications, and alternatives were discussed with the patient. The patient agreed to proceed with the procedure and signed the consent. Vital signs were checked before and after the procedure and they remained stable. Patient ambulated to the procedure room and time out was completed. The patient was placed in the prone position on the procedure table and a pillow was placed under the abdomen to reduce lumbar lordosis. The lumbosacral area was prepped and draped in the usual sterile fashion. Critical pause was taken. S1, S3, and S3 Lateral Branch RF: The medial margins of the left sacroiliac joint identified. Under fluoroscopic guidance, three 10-cm 20 -gauge radiofrequency cannula with a 10-mm active tip were inserted at 8-10 mm medial to the medial edge of the left sacroiliac joint , total of 6 needle was placed starting from the inferior border of the left sacroiliac joint and going superiorly, then , the sensory testing was performed at 50 Hz and 0 to 1 volt at the three levels with production of concordant pain starting at 0.5 volt. Motor stimulation was done at 2.5 Hz. No radicular symptoms or paresthesias were produced during the testing. Subsequently,then lateral branch was subjected to a radiofrequency ablation at a mode of 90 seconds at 80 degrees Celsius at the 3 levels after negative motor and sensory testing and after injecting 0.5 ml of preservative free Ropivacaine then 0.5 total of 6 ML of ropivacaine 0.5% mixed with 30 mg of Toradol mixed with her and 1 mL injected at each level after negative aspiration COMPLICATIONS: The patient tolerated the procedure well without any acute complications. DISPOSTION/PLAN: The patient ambulated to the recovery area after the procedure in a stable condition for observation. Patient was reexamined prior to discharge. Patient was observed for 30 minutes in the recovery area and was discharged home, accompanied by an adult, after meeting discharged criteria. Discharge instructions were give to the patient by the staff. Patient was specifically instructed not to drive today and to rest for the rest of the day. The patient will schedule a follow up visit in the clinic in weeks or earlier if needed.
[2018-02-22 10:02] VITALS: RESP 16
[2018-02-22] MEDS ORDERED: IV FLUID CONTINUATION 1,000 ML IV ONE ×2 (10:05)
[2018-02-22 10:17] VITALS: BP 122/84; PULSE 87
--- NOTE | 2018-02-22 14:18 | FL ---
Fluoroscopy HISTORY: Pain 41 seconds fluoroscopy time supplied to the referring clinician. 8 intraoperative C-arm images docum ent the procedure. See dictated report from anesthesia.
== END 2018-02-22 10:41 | disposition home or self-care (01) ==
LOC: ORPAIN 08:03
PROVIDERS: ATTEND Specialist
DX: M47.817 Spondylosis without myelopathy or radiculopathy, lumbosacral region (principal); M46.1 Sacroiliitis, not elsewhere classified; M47.814 Spondylosis without myelopathy or radiculopathy, thoracic region
CPT/HCPCS: 81025; 64640 ×3; J2250; J3010; 99152; 99153

== ENCOUNTER 2018-04-11 06:31 | Day surgery (SDC) | payer MEDICARE, OTHER ==
[2018-04-09 15:41] VITALS: BMI 25.7
[2018-04-11 07:23] VITALS: TEMP 97.2
[2018-04-11] MEDS ORDERED: LACTATED RINGERS 1,000 ML IV ONE (07:25)
[2018-04-11] MEDS ORDERED: LIDOCAINE 1% 20 ML VIAL (10MG/ML) FOR IV START INTRADERMA ONE (07:25)
--- NOTE | 2018-04-11 08:12 | P.PCN ---
Date of Procedure: 04/11/18 Procedure(s) Performed: PREOPERATIVE DIAGNOSIS: 1-Lumbosacral spondylosis with facet arthropathy without myelopathy. 2-sacroiliit. post operative Diagnosis: . 1-Lumbosacral spondylosis with facet arthropathy without myelopathy. 2- sacroiliit. PROCEDURES: 1- Right multi-site radiofrequency thermocoagulation/ablation of the S1, S2, and S3 lateral branchs. ( 3 peripheral nerves ) The procedure was performed using fluoroscopic guidance during needle placement to assure proper position and maximize safety ANESTHESIA = moderate sedation with intravenous versed 4 mg and Fentanyle 100mcg EBL: NONE INDICATION/MEDICAL NECESSITY: History of low back pain secondary to sacroiliitis and lumbosacral arthropathy unresponsive to more conservative treatments. The patient reported more than 50 % relief of pain symptoms following the diagnostic block and later on we have done radiofrequency ablation of the sacroiliac joint, and patient gets good pain relief for more than 6 months, PROCEDURE DESCRIPTION: The patient was seen and identified in the preoperative area. Risks, benefits, complications, and alternatives were discussed with the patient. The patient agreed to proceed with the procedure and signed the consent. Vital signs were checked before and after the procedure and they remained stable. Patient ambulated to the procedure room and time out was completed. The patient was placed in the prone position on the procedure table and a pillow was placed under the abdomen to reduce lumbar lordosis. The lumbosacral area was prepped and draped in the usual sterile fashion. Critical pause was taken. S1, S3, and S3 Lateral Branch RF: The medial margins of the Right sacroiliac joint identified. Under fluoroscopic guidance, three 10-cm 20 -gauge radiofrequency cannula with a 10- mm active tip were inserted at 8-10 mm medial to the medial edge of the right sacroiliac joint, total of 6 needle was placed starting from the inferior border of the right sacroiliac joint and going superiorly, then , the sensory testing was performed at 50 Hz and 0 to 1 volt at the three levels with production of concordant pain starting at 0.5 volt. Motor stimulation was done at 2.5 Hz. No radicular symptoms or paresthesias were produced during the testing. Subsequently,then lateral branch was subjected to a radiofrequency ablation at a mode of 90 seconds at 80 degrees Celsius at all the levels after negative motor and sensory testing and after injecting 0.5 ml of preservative free Ropivacaine then 0.5 total of 6 ML of ropivacaine 0.5% , 1 mL injected at each level after negative aspiration COMPLICATIONS: The patient tolerated the procedure well without any acute complications. DISPOSTION/PLAN: The patient ambulated to the recovery area after the procedure in a stable condition for observation. Patient was reexamined prior to discharge. Patient was observed for 30 minutes in the recovery area and was discharged home, accompanied by an adult, after meeting discharged criteria. Discharge instructions were give to the patient by the staff. Patient was specifically instructed not to drive today and to rest for the rest of the day. The patient will schedule a follow up visit in the clinic in weeks or earlier if needed.
[2018-04-11] MEDS ORDERED: IV FLUID CONTINUATION 1,000 ML IV ONE ×2 (08:18)
[2018-04-11 08:26] VITALS: RESP 16
[2018-04-11 08:37] VITALS: BP 111/66; PULSE 90
--- NOTE | 2018-04-11 09:12 | FL ---
Fluoroscopy HISTORY: Pain 19 seconds fluoroscopy time supplied to the referring clinician. 5 intraoperative C-arm images docum ent the procedure. See dictated report from anesthesia.
== END 2018-04-11 08:51 | disposition home or self-care (01) ==
LOC: ORPAIN 06:31
PROVIDERS: ATTEND Specialist
DX: M47.817 Spondylosis without myelopathy or radiculopathy, lumbosacral region (principal); M46.1 Sacroiliitis, not elsewhere classified; M96.1 Postlaminectomy syndrome, not elsewhere classified; Z88.6 Allergy status to analgesic agent; Z88.5 Allergy status to narcotic agent; Z88.0 Allergy status to penicillin
CPT/HCPCS: 81025; 64640 ×3; J2250; J3010; 99152; 99153

== ENCOUNTER → 2018-04-23 | Day surgery (SDC) | payer MEDICARE, OTHER ==
[2018-04-23 13:42] VITALS: BP 122/78; PULSE 87; RESP 16; TEMP 97.6
--- NOTE | 2018-04-23 14:22 | P.PCN ---
Date of Procedure: 04/23/18 Description of Procedure: PROCEDURE: Intrathecal pain pump analysis, programming and reprogramming, and intrathecal pain pump refill. PREOPERATIVE DIAGNOSES: 1. near empty intrathecal pain pump time for refill. 2. opioid tolerance 3. lumbar PLPS 4. sacroiliitis, lumbar spondylosis without myelopathy POSTOPERATIVE DIAGNOSES: same ANESTHESIA: None. CONDITION: Stable. INDICATION: This is a 47-year-old patient with a long history of chronic pain secondary to lumbar PLPS, sacroiliitis, and lumbar spondylosis. Patient previously had an intrathecal pump placed, which is now close to empty, and patient presents for refill today. Patient denies any side effects of the intrathecal medication, including new weakness, new numbness, excessive drowsiness or sleepiness, nausea/vomiting, weight gain, or night sweats. Patient also denies suicidal ideation, and reports that the current pain medication is helping control the chronic pain and improve the patient's activities of daily living. DESCRIPTION: The intrathecal pain pump was analyzed and showed that the patient currently has reservoir volume of [8.0] mL. The patient is receiving intrathecal hydromorphone PF at concentration [16] mg/ ml, baclofen 125 mcg/ml and bupivacaine PF at concentration [12] mg/ml. Patient receiving daily dose of hydromorphone [5.9] mg/day, baclofen [46] mcg/ day, and bupivacaine [4.4] mg/day. The location of the pump (right buttock) was prepped with chlorhexidine x3. Then, the 22-gauge needle from the Instant [employer] kit was advanced through the pump port. Total of [7] ml was removed from the pump, and it was refilled with the new medication total volume of [40] ml of a solution containing intrathecal hydromorphone PF at concentration [16] mg/ ml, baclofen 125 mcg/ml and bupivacaine PF at concentration [12] mg/ml The patient will continue with the same daily dose hydromorphone [5.9] mg/day , baclofen [46] mcg/day, and bupivacaine [4.4] mg/day.
== END ==
LOC: PNWHC3 12:53
PROVIDERS: ATTEND Anesthesiology
DX: Z45.49 Encounter for adjustment and management of other implanted nervous system device (principal); G89.29 Other chronic pain; M96.1 Postlaminectomy syndrome, not elsewhere classified; M46.1 Sacroiliitis, not elsewhere classified; M47.816 Spondylosis without myelopathy or radiculopathy, lumbar region; Z79.891 Long term (current) use of opiate analgesic
CPT/HCPCS: 62370; 99211

== ENCOUNTER → 2018-05-23 | Outpatient (CLI) | payer MEDICARE, OTHER ==
[2018-05-23 12:50] VITALS: PULSE 100; RESP 20
--- NOTE | 2018-05-24 09:22 | P.PN ---
Subjective Progress Note Date: 05/23/18 This is a follow-up visit for this 48 years old female with a chronic history of severe midback pain and low back pain, she is diagnosed with thoracic spondylosis, thoracic facet arthropathy ,lumbar spondylosis with lumbar facet arthropathy, and sacroiliitis, patient had chronic severe low back pain also secondary to failed back surgery syndrome and lumbar area, she is on intrathecal pain therapy, and she continued to have severe mid back pain, patient had diagnostic medial branch blocks thoracic area done recently, and she reported that the diagnostic medial branch blocks thoracic area helped her mid back pain significantly, her mid back pain improved more than 50% for short-term after each diagnostic medial branch blocks thoracic area, and also in the past we've done sacroiliac joint steroid injections, which was successful and later on it was followed with radiofrequency ablation of the sacroiliac joint, also we've done diagnostic medial branch block lumbar area and it was successful also on it was followed with radiofrequency ablation of the medial branch lumbar area, currently she reported that most of her pain is on the midback area it's constant and increased with any activity, she denies any motor or sensory deficit, she denies any fever or night sweats, she denies any change in the bowel movement or urination Physical Examinations : 1-Constitutiona : Cooperative , not in acute distress . 2-HEENT : nech ; supple , no Lymphadenopathy , normal thyroid size . eyes : no ptosis , no icterus, no photophobia . ENT : normal of hearing , normal oropharynx , no Thrush . 3- Respiratory : Chest clear to auscultations Bilaterally , no wheezing , no Rhonchi . 4- Cardiovascular : regular rate and rhythem , S1 , S2 , no S3 , no S4. 5- Gastrointestinal : abdomen soft no tenderness , bowel sounds , no organomegally . 6- Genitourinary : Defferred . 7- neurologic : Cranial nerve II to XII intact , no focal neurological deffecit . 8-psychatric : alert , oriented X 3 , appropriate affect , intact judgment and insight . 9-Lymphatic : no Lymphadenopathy . 10- musculoskeltal : Thoracic Spine positive Thoracic facet loading test . Lumber spine moter stegnth lower extremities ,thigh and legs 5/5 Right side , 5/5 Left side deep tendon reflexes : normal Knee Jerk , normal ankle Jerk positive lumber facet Loading Test Range of motion of the lumbar spine Flexion 30 degrees, extension 10 degrees strait leg raising test negative bilaterally Fabere test negative bilaterally. Sever tenderness over the Sacroiliac joint on the Left sides Assessment and plan=1-chronic severe midback pain secondary to thoracic spondylosis patient had a good result after the diagnostic medial branch blocks thoracic area, and she will be good candidate for radiofrequency ablation of the thoracic medial branch. T6/T7/T8 We'll do the right side first then later on noted with the left 2-chronic severe low back pain secondary to lumbar spondylosis with lumbar facet arthropathy with arthropathy, 3-sacroiliitis PQRS Measure Charge Sheet Measure #130: Documentation of Current Meds in Medical Chart: Patient's medications documented in chart Measure #226: Tobacco Use: Screen & Cessation Intervention: Pt not a tobacco user Measure #111: Pneumonia Vaccination: Pneumococcal vaccine NOT administered or previously given Measure #47: Advance Care Plan: Advance care planning discussed & documented, pt chose/unable to give Measure #412: Opioid Treatment Agreement: Documented signed opioid trtmnt agreemnt min once during opioid trtmnt Measure #408: Opioid Therapy Follow-up Evaluation: Patient had f/u eval minimum every 3 months during opioid therapy Measure #317: Preventitive Care & Scrn High Bld Press & F/U: Normal blood pressure, f/u not required Measure #128: Body Mass Index (BMI) Screening & Follow-up: BMI documented ABOVE normal parameters - f/u documented Measure #131: Pain Assessment & Follow-up: Pain positive & plan documented, Follow-up scheduled Measure #431: Unhealthy Alcohol Use Preventative Care & Scrn: Patient not identified as an unhealthy alcohol user PQRS Narrative: - Controlled Substance Measures Is patient prescribed a controlled substance at discharge?: Yes When asked, does pt state using other controlled substances?: No If prescribed controlled substance>3 days was MAPS reviewed?: Yes If Rx opioid, was Start Talking consent form obtained?: Yes If opioid is for acute pain is fill amount 7 days or less?: No Was information provided regarding opioid addiction?: Yes Objective - Vital Signs Vital signs: Vital Signs Temp Pulse 100 05/23/18 12:43 Resp 20 05/23/18 12:43 BP Pulse Ox 95 05/23/18 12:43 Intake & Output 05/23/18 05/24/18 05/24/18 18:59 06:59 18:59 Weight 72.575 kg
== END | disposition home or self-care (01) ==
LOC: PNWHC3 12:26
PROVIDERS: ATTEND Specialist
DX: G89.29 Other chronic pain (principal); M47.816 Spondylosis without myelopathy or radiculopathy, lumbar region; M47.814 Spondylosis without myelopathy or radiculopathy, thoracic region; M46.84 Other specified inflammatory spondylopathies, thoracic region; M46.86 Other specified inflammatory spondylopathies, lumbar region; M46.1 Sacroiliitis, not elsewhere classified; M96.1 Postlaminectomy syndrome, not elsewhere classified
CPT/HCPCS: 99211

== ENCOUNTER → 2018-07-18 | Day surgery (SDC) | payer MEDICARE, OTHER ==
[2018-07-18 11:34] VITALS: BP 129/89; PULSE 88; RESP 16
--- NOTE | 2018-07-18 14:42 | P.PCN ---
Date of Procedure: 07/18/18 Procedure(s) Performed: PROCEDURE: Intrathecal pain pump analysis, programming and reprogramming, and intrathecal pain pump refill. PREOPERATIVE DIAGNOSES: 1. near empty intrathecal pain pump time for refill. 2. opioid tolerance 3. lumbar PLPS 4. sacroiliitis, lumbar spondylosis without myelopathy. 5. Thoracic spondylosis with facet arthropathy without myelopathy POSTOPERATIVE DIAGNOSES: same ANESTHESIA: None. CONDITION: Stable. INDICATION: This is a 47-year-old patient with a long history of chronic pain secondary to lumbar PLPS, sacroiliitis, and lumbar spondylosis. Patient previously had an intrathecal pump placed, which is now close to empty, and patient presents for refill today. Patient denies any side effects of the intrathecal medication, including new weakness, new numbness, excessive drowsiness or sleepiness, nausea/vomiting, weight gain, or night sweats. Patient also denies suicidal ideation, and reports that the current pain medication is helping control the chronic pain and improve the patient's activities of daily living. DESCRIPTION: The intrathecal pain pump was analyzed and showed that the patient currently has reservoir volume of [8.4] mL. The patient is receiving intrathecal hydromorphone PF at concentration [16] mg/ ml, baclofen 163 mcg/ml and bupivacaine PF at concentration [12] mg/ml. Patient receiving daily dose of hydromorphone [5.9] mg/day, baclofen [60] mcg/day, and bupivacaine [4.4] mg/day. The location of the pump (right buttock) was prepped with chlorhexidine x3. Then, the 22-gauge needle from the [employer] kit was advanced through the pump port. Total of [10] ml was removed from the pump, and it was refilled with the new medication total volume of [40] ml of a solution containing intrathecal hydromorphone PF at concentration [16] mg/ ml, baclofen 163 mcg/ml and bupivacaine PF at concentration [12] mg/ml The patient will continue with the same daily dose hydromorphone [5.9] mg/day, baclofen [60] mcg/day, and bupivacaine [4.4] mg/day.
== END ==
LOC: PNWHC3 10:59
PROVIDERS: ATTEND Specialist
DX: Z45.1 Encounter for adjustment and management of infusion pump (principal); G89.29 Other chronic pain; M46.1 Sacroiliitis, not elsewhere classified; M47.816 Spondylosis without myelopathy or radiculopathy, lumbar region; M47.814 Spondylosis without myelopathy or radiculopathy, thoracic region; Z98.890 Other specified postprocedural states
CPT/HCPCS: 62370

== ENCOUNTER → 2018-10-03 | Day surgery (SDC) | payer MEDICARE, OTHER ==
[2018-10-03 14:09] VITALS: BP 112/74; PULSE 88; RESP 18
--- NOTE | 2018-10-03 14:47 | P.PCN ---
Date of Procedure: 10/03/18 Surgeon: Fanny Chau Pathology: none sent Condition: stable Operative Findings: PROCEDURE: Intrathecal pain pump analysis, programming and reprogramming, and intrathecal pain pump refill. PREOPERATIVE DIAGNOSES: 1. near empty intrathecal pain pump time for refill. 2. opioid tolerance 3. lumbar PLPS 4. sacroiliitis, lumbar spondylosis without myelopathy. 5. Thoracic spondylosis with facet arthropathy without myelopathy POSTOPERATIVE DIAGNOSES: same ANESTHESIA: None. CONDITION: Stable. INDICATION: This is a 47-year-old patient with a long history of chronic pain secondary to lumbar PLPS, sacroiliitis, and lumbar spondylosis. Patient previously had an intrathecal pump placed, which is now close to empty, and patient presents for refill today. Patient denies any side effects of the intrathecal medication, including new weakness, new numbness, excessive drowsiness or sleepiness, nausea/vomiting, weight gain, or night sweats. Patient denies any new weakness or paresthesia in the lower extremities. Patient also denies suicidal ideation, and reports that the current pain medication is helping control the chronic pain and improve the patient's activities of daily living. DESCRIPTION: The intrathecal pain pump was analyzed and showed that the patient currently has reservoir volume of [11] mL. The patient is receiving intrathecal hydromorphone PF at concentration [16] mg/ ml, baclofen 163 mcg/ml and bupivacaine PF at concentration [12] mg/ml. Patient receiving daily dose of hydromorphone [5.9] mg/day, baclofen [60] mcg/day, and bupivacaine [4.4] mg/day. The location of the pump (right buttock) was prepped with chlorhexidine x3. Then, the 22-gauge needle from the [employer] kit was advanced through the pump port. Total of [12] ml was removed from the pump, and it was refilled with the new medication total volume of [40] ml of a solution containing intrathecal hydromorphone PF at concentration [16] mg/ ml, baclofen 163 mcg/ml and bupivacaine PF at concentration [12] mg/ml The patient will continue with the same daily dose hydromorphone [5.9] mg/day, baclofen [60] mcg/day, and bupivacaine [4.4] mg/day.
== END | disposition home or self-care (01) ==
LOC: PNWHC3 13:00
PROVIDERS: ATTEND Anesthesiology
DX: M47.816 Spondylosis without myelopathy or radiculopathy, lumbar region (principal); M47.814 Spondylosis without myelopathy or radiculopathy, thoracic region; G89.29 Other chronic pain; M46.1 Sacroiliitis, not elsewhere classified
CPT/HCPCS: 62370

== ENCOUNTER 2018-12-26 09:54 | Day surgery (SDC) | payer MEDICARE, OTHER ==
[~2018-12-26 09:54] MED LIST changes: +CLINDAMYCIN 600 MG in DEXTROSE 5% IN WATER 50 ML IVPB ONE; -SODIUM CHLORIDE 0.9% 500 ML 500 ML IV SCH
[2018-12-26] MEDS ORDERED: LACTATED RINGERS 1,000 ML IV ONE (10:23)
[2018-12-26] MEDS ORDERED: LIDOCAINE 1% 20 ML VIAL (10MG/ML) FOR IV START INTRADERMA ONE (10:31)
[2018-12-26] MEDS ORDERED: ONDANSETRON 4 MG/2 ML VIAL IVP ONE ×2 (10:32→13:27)
[2018-12-26] MEDS ORDERED: DEXAMETHASONE SOD PHOS (MDV) 100 MG/10 ML VIAL IVP ONE (10:32)
--- NOTE | 2018-12-26 10:42 | P.GSHP ---
History of Present Illness H&P Date: 12/26/18 This is 48 years old female, with a chronic history of severe low back pain she's been diagnosed with failed back surgery syndrome, and opioid tolerance, she had intrathecal pain pump implanted several years ago, and it is time to replace the intrathecal pain pump Eackles patient had end-of-life of the pain pump, and patient here today to have it replaced procedure risk and benefits discussed with the patient ,and she she agreed with the preceding. Past Medical History Past Medical History: Fibromyalgia, GERD/Reflux, Hyperlipidemia Additional Past Medical History / Comment(s): CHRONIC BACK PAIN, NEUROPATHY, PRE CA SKIN CA; CUSHINGS DISEASE History of Any Multi-Drug Resistant Organisms: None Reported Past Surgical History: Back Surgery, Breast Surgery, Orthopedic Surgery Additional Past Surgical History / Comment(s): BACK FUSION, SX TO REMOVE SCREWS, IMPLANTED PAIN PUMP,PAIN CLINIC PROCEDURES, BREAST BX, RT THUMB SX, Arthroscopic Rt. knee surgery Past Anesthesia/Blood Transfusion Reactions: No Reported Reaction Smoking Status: Former smoker - Past Family History Mother Family Medical History: No Reported History Medications and Allergies Home Medications Medication Instructions Recorded Confirmed Type Esomeprazole Magnesium [NexIUM] 40 mg PO QAM 08/12/13 12/26/18 History HYDROcodone/APAP 10-325MG [[place] 1 tab PO TID PRN 08/12/13 12/26/18 History 10-325] Lidocaine 5% Patch [Lidoderm 5% 1 - 3 patch TOPICAL DAILY PRN 08/12/13 12/26/18 History Patch] Multivitamin with Iron [Daily 1 tab PO DAILY 08/12/13 12/26/18 History Multivitamin with Iron] Pravastatin Sodium [Pravachol] 20 mg PO HS 08/12/13 12/26/18 History Furosemide [Lasix] 20 mg PO DAILY PRN 03/18/15 12/26/18 History Cholecalciferol [Vitamin D3] 5,000 unit PO DAILY 06/17/15 12/26/18 History DULoxetine HCL [Cymbalta] 90 mg PO HS 03/09/17 12/26/18 History Gabapentin [Neurontin] 600 mg PO BID 03/09/17 12/26/18 History Ascorbic Acid [Vitamin C] 1,000 mg PO DAILY 08/22/17 12/26/18 History Magnesium Oxide [[place]] 500 mg PO DAILY 08/22/17 12/26/18 History Hydromorphone,Bupivacain,Baclo 1 dose INTRATHECA CONTINUOUS MDD 02/20/18 12/26/18 History pain pump Temazepam [Restoril] 15 mg PO HS PRN 02/20/18 12/26/18 History Allergies Allergy/AdvReac Type Severity Reaction Status Date / Time Penicillins Allergy Severe Anaphylaxis Verified 10/03/18 13:56 rofecoxib [From Vioxx] Allergy Severe Anaphylaxis Verified 10/03/18 13:56 naproxen sodium [From Aleve] Allergy Unknown Rash/Hives Verified 10/03/18 13:56 morphine Allergy Swelling Verified 10/03/18 13:56 Surgical - Exam Vital Signs Temp Pulse Resp BP Pulse Ox 97.8 F 77 18 116/71 97 12/26/18 10:21 12/26/18 10:21 12/26/18 10:21 12/26/18 10:21 12/26/18 10:21 Physical Examinations : -Constitutiona : Cooperative , not in acute distress . -HEENT : nech : supple , no Lymphadenopathy , normal thyroid size . eyes : no ptosis , no icterus, no photophobia . ENT : normal of hearing , normal oropharynx , no Thrush . - Respiratory : Chest clear to auscultations Bilaterally , no wheezing , no Rhonchi . - Cardiovascula : regular rate and rhythem , S1 , S2 , no S3 , no S4. - Gastrointestina : abdomen soft no tenderness , bowel sounds , no organomegally . - Genitourinary : Defferred . - neurologic : Cranial nerve II to XII intact , no focal neurological deffecit . -psychatric : alert , oriented X 3 , appropriate affect , intact judgment and insight . -Lymphatic : no Lymphadenopathy . - musculoskeltal : Lumber spine moter stegnth lower extremities ,thigh and legs 5/5 Right side , 5/5 Left side Assessment and Plan Plan: Assessment and plan= end of life of intrathecal pain pump time for placement and she is here to have intrathecal pain pump placement, and refilled Time with Patient: Less than 30
[2018-12-26] MEDS ORDERED: LIDOCAINE 1% INJ 10MG/ML (20 ML MDV) ONE (10:57)
[2018-12-26] MEDS ORDERED: MIDAZOLAM 2 MG/2 ML VIAL ONE ×2 (10:57→11:16)
[2018-12-26] MEDS ORDERED: fentaNYL (PF) 50 MCG/ML 2 ML AMP ONE ×2 (10:57→11:16)
[2018-12-26] MEDS ORDERED: PROPOFOL 10 MG/ML 20 ML VIAL IV ONE ×2 (10:57→11:16)
[2018-12-26] MEDS ORDERED: KETAMINE 10 MG/ML 20 ML VIAL ONE (11:16)
[2018-12-26] MEDS ORDERED: BUPIVACAINE (PF) 0.5% 30 ML VIAL SQ ONE ×2 (11:36)
[2018-12-26] MEDS ORDERED: LIDOCAINE 2%-EPI 1:100,000 20 ML VIAL SQ ONE ×2 (11:36)
[2018-12-26] MEDS ORDERED: CLINDAMYCIN 600 MG in SODIUM CHLORIDE 0.9% 1,000 ML IRRIGATION ONE (11:39)
[2018-12-26 12:48] VITALS: TEMP 97
[2018-12-26] MEDS ORDERED: LACTATED RINGERS 1,000 ML IV SCH (13:27)
[2018-12-26] MEDS ORDERED: fentaNYL (PF) 50 MCG/ML 2 ML AMP IV PRN (13:27)
[2018-12-26] MEDS ORDERED: LIDOCAINE 1% 20 ML VIAL (10MG/ML) FOR IV START INTRADERMA PRN (13:27)
[2018-12-26 13:34] VITALS: RESP 18
[2018-12-26 13:55] VITALS: BP 129/74; PULSE 78
--- NOTE | 2018-12-26 16:11 | P.PCN ---
Date of Procedure: 12/26/18 Procedure(s) Performed: Procedure= 1-replacement of permanent intrathecal infusion pump. 3-electronic analysis of intrathecal pain pump. Pump refill Preoperative diagnosis=1- end of life of intrathecal pain pump time for replacement 1-postlaminectomy pain syndrome lumbar area. 2-chronic pain syndrome. Postoperative diagnosis= same as preop diagnosis. Conditions= stable. Complications= none. Estimated blood loss= minimal. Anesthesia= [facility] anesthesia care Indication for the procedure= patient had a history of chronic pain syndrome and chronic low back pain secondary to failed back surgery syndrome and she had opioid tolerance she has intrathecal pain pump implanted several years ago and she is here today to have intrathecal pain pump replacement Description of the procedure= patient was identified in the preop holding area risks and benefits and alternatives of the procedure discussed with the patient and her and they agreed with proceeding, all the questions answered. Patient placed in prone position after induction of anesthesia, by anesthesia department, the patient was given 2 g of prophylactic antibiotics consisting of 10 the back and the right buttock area prepped with the DuraPrep 3, then draped in the standard fashion, then under fluoroscopy guidance local infiltration of the skin and subcu interstitial with the local infiltration with mixture of lidocaine 2% with epi then the incision made in the right buttock area, then after adequate dissection done and was able to remove the old intrathecal pain pump, and I tried to connect the new pump to the old connector it was loose connector for this reason I have to replace it with the sutureless connector, then after the connector connected to the pump and after I was assured that there is a free flow of cerebrospinal fluid coming from the catheter and was able to place the pump in the right buttock area and the pocket and after adequate hemostasis assured, then after that the pump pocket closed using 2-0 Vicryl for subcu 3-0 Vicryl and then, all this done after adequate hemostasis and then the dressing applied and then the pump refilled with a new medication total volume 4 mL and the medication contained hydromorphone 16 mg per mL and bupivacaine 12 mg per mL and baclofen 163 g per mL and patient will continue to receive a daily dose of hydromorphone 5#milligrams per day and bupivacaine 4.4 mg per day and baclofen 60 g per day and patient will be seen in the pain clinic in 1 week
== END 2018-12-26 14:48 | disposition home or self-care (01) ==
LOC: OR 09:54
PROVIDERS: ATTEND Specialist
DX: M96.1 Postlaminectomy syndrome, not elsewhere classified (principal); Z45.1 Encounter for adjustment and management of infusion pump; Z79.891 Long term (current) use of opiate analgesic; M79.7 Fibromyalgia; K21.9 Gastro-esophageal reflux disease without esophagitis; E78.5 Hyperlipidemia, unspecified; G62.9 Polyneuropathy, unspecified; E24.9 Cushing's syndrome, unspecified; Z87.891 Personal history of nicotine dependence; Z79.899 Other long term (current) drug therapy; Z88.6 Allergy status to analgesic agent; Z88.5 Allergy status to narcotic agent; Z88.0 Allergy status to penicillin
CPT/HCPCS: 81025; 62362; C1787; C1778; J2250; J2405; J2001; J3010; J1100; J2704

== ENCOUNTER → 2019-01-02 | Outpatient (CLI) | payer MEDICARE, OTHER ==
[2019-01-02 13:14] VITALS: BP 130/85; PULSE 101; RESP 18; TEMP 98.8
--- NOTE | 2019-01-02 13:47 | P.PN ---
Subjective Progress Note Date: 01/02/19 This is a follow-up visit for this 48 years old female, with a history of chronic pain syndrome she is diagnosed with lumbar spondylosis with lumbar facet arthropathy, and failed back surgery syndrome and lumbar area, and opioid tolerance, patient had intrathecal pain pump placement done last week, and she is here today to check on her incision Objective - Vital Signs Vital signs: Vital Signs Temp 98.8 F 01/02/19 13:11 Pulse 101 H 01/02/19 13:11 Resp 18 01/02/19 13:11 BP 130/85 01/02/19 13:11 Pulse Ox 95 01/02/19 13:11 - Exam Physical Examinations : -Constitutiona : Cooperative , not in acute distress . -HEENT : nech : supple , no Lymphadenopathy , normal thyroid size . eyes : no ptosis , no icterus, no photophobia . ENT : normal of hearing , normal oropharynx , no Thrush . - Respiratory : Chest clear to auscultations Bilaterally , no wheezing , no Rhonchi . - Cardiovascula : regular rate and rhythem , S1 , S2 , no S3 , no S4. - Gastrointestina : abdomen soft no tenderness , bowel sounds , no organomegally . - Genitourinary : Defferred . - neurologic : Cranial nerve II to XII intact , no focal neurological deffecit . -psychatric : alert , oriented X 3 , appropriate affect , intact judgment and insight . -Lymphatic : no Lymphadenopathy . - musculoskeltal : Lumber spine moter stegnth lower extremities ,thigh and legs 5/5 Right side , 5/5 Left side deep tendon reflexes : normal Knee Jerk , normal ankle Jerk positive lumber facet Loading Test Range of motion of the lumbar spine Flexion 30 degrees, extension 10 degrees strait leg raising test , positive at 30 degree Fabere test positive RT and positive LT . Sever tenderness over the Sacroiliac joint on the R and L sides The incision in the right buttock area and the location of the pump he is appropriately there is no discharge ,no erythema, no swelling Assessment and Plan Plan: Assessment and plan= chronic pain syndrome secondary to failed back surgery syndrome and lumbar area, lumbar spondylosis Opioid tolerance Status post intrathecal pain pump replacement, incision and appropriately no sign of infection Patient complaining of low back pain excellent support that she had lumbar spondylosis with lumbar facet arthropathy Patient had good result after the radiofrequency ablation of the medial branch lumbar area done previously, in the future if she continued to have low back pain, then we will consider doing repeat RFA of the right-sided medial branch lumbar area at L3, L4, L5 Time with Patient: Less than 30
== END | disposition home or self-care (01) ==
LOC: PNWHC3 12:52
PROVIDERS: ATTEND Specialist
DX: M47.816 Spondylosis without myelopathy or radiculopathy, lumbar region (principal); M46.96 Unspecified inflammatory spondylopathy, lumbar region; M96.1 Postlaminectomy syndrome, not elsewhere classified; Z96.9 Presence of functional implant, unspecified
CPT/HCPCS: 99211

== ENCOUNTER → 2019-03-20 | Day surgery (SDC) | payer MEDICARE, OTHER ==
[2019-03-20 12:08] VITALS: BP 110/78; PULSE 93; RESP 18; TEMP 97.6
--- NOTE | 2019-03-21 06:21 | P.PCN ---
Date of Procedure: 03/20/19 Procedure(s) Performed: This is a follow-up visit for this 48 years old female, with a history of chronic pain syndrome she is diagnosed with lumbar spondylosis with lumbar facet arthropathy, and failed back surgery syndrome and lumbar area, and opioid tolerance, patient had intrathecal pain pump placement done a few weeks ago, and postop patient had some redness around the pump area, and patient was seen in infectious disease specialist Dr. Cifuentes, and he started her on antibiotics cefuroxime 500 mg twice a day, the incision improved, but there is some area of redness at the lateral edge of the incision, she denies any fever or night sweats, she denies any motor or sensory deficit, but she is complaining of severe pain in the buttock area bilaterally Physical Examinations : -Constitutiona : Cooperative , not in acute distress . -HEENT : nech : supple , no Lymphadenopathy , normal thyroid size . eyes : no ptosis , no icterus, no photophobia . ENT : normal of hearing , normal oropharynx , no Thrush . - Respiratory : Chest clear to auscultations Bilaterally , no wheezing , no Rhonchi . - Cardiovascula : regular rate and rhythem , S1 , S2 , no S3 , no S4. - Gastrointestina : abdomen soft no tenderness , bowel sounds , no organomegally . - Genitourinary : Defferred . - neurologic : Cranial nerve II to XII intact , no focal neurological deffecit . -psychatric : alert , oriented X 3 , appropriate affect , intact judgment and insight . -Lymphatic : no Lymphadenopathy . - musculoskeltal : Lumber spine moter stegnth lower extremities ,thigh and legs 5/5 Right side , 5/5 Left side deep tendon reflexes : normal Knee Jerk , normal ankle Jerk positive lumber facet Loading Test Range of motion of the lumbar spine Flexion 30 degrees, extension 10 degrees strait leg raising test , positive at 30 degree Fabere test positive RT and positive LT . Sever tenderness over the Sacroiliac joint on the R and L sides The incision in the right buttock area and the location of the pump he is appropriately there is no discharge ,minimal erythema at the lateral border of the incision no swelling Assessment and plan= chronic pain syndrome secondary to failed back surgery syndrome and lumbar area, lumbar spondylosis Opioid tolerance Status post intrathecal pain pump replacement, incision and the healing process, there is minimal redness and the lateral border of the incision, I will continue the antibiotics cefuroxime 500 mg twice a day for one more week, prescription given Patient reported increased pain on the low back area which is most likely secondary to sacroiliitis she could benefit from repeat radiofrequency thermocoagulation of the left sacroiliac joint, (Radiofrequency thermocoagulation of the L5-S1 dorsal ramus , and RFA lateral branches S1, S2 and S3 PROCEDURE: Intrathecal pain pump analysis, programming and reprogramming, and intrathecal pain pump refill. PREOPERATIVE DIAGNOSES: 1. near empty intrathecal pain pump time for refill. 2. opioid tolerance 3. lumbar PLPS 4. sacroiliitis, lumbar spondylosis without myelopathy POSTOPERATIVE DIAGNOSES: same ANESTHESIA: None. CONDITION: Stable. INDICATION: This is a 48-year-old patient with a long history of chronic pain secondary to lumbar PLPS, sacroiliitis, and lumbar spondylosis. Patient previously had an intrathecal pump placed, which is now close to empty, and patient presents for refill today. Patient denies any side effects of the intrathecal medication, including new weakness, new numbness, excessive drowsiness or sleepiness, nausea/vomiting, weight gain, or night sweats. Patient also denies suicidal ideation, and reports that the current pain medication is helping control the chronic pain DESCRIPTION: The intrathecal pain pump was analyzed and showed that the patient currently has reservoir volume of [5.8] mL. The patient is receiving intrathecal hydromorphone PF at concentration [16] mg/ ml, baclofen 163 mcg/ml and bupivacaine PF at concentration [12] mg/ml. Patient receiving daily dose of hydromorphone [5.9] mg/day, baclofen [60 ] mcg/day, and bupivacaine [4.4] mg/day. The location of the pump (right buttock) was prepped with chlorhexidine x3. Then, the 22-gauge needle from the [employer] kit was advanced through the pump port.Total of [7 ] ml was removed from the pump, and it was refilled with the new medication total volume of [40] ml of a solution containing intrathecal hydromorphone PF at concentration [16] mg/ ml, baclofen [163] mcg/ml and bupivacaine PF at concentration [12] mg/ml. The patient will continue with the same daily dose hydromorphone [5.9] mg/day, baclofen [60] mcg/day, and bupivacaine [4.4] mg/day.
== END ==
LOC: PNWHC3 11:58
PROVIDERS: ATTEND Specialist
DX: G89.29 Other chronic pain (principal); M96.1 Postlaminectomy syndrome, not elsewhere classified; M47.816 Spondylosis without myelopathy or radiculopathy, lumbar region; M46.1 Sacroiliitis, not elsewhere classified; M51.36 Other intervertebral disc degeneration, lumbar region; M51.34 Other intervertebral disc degeneration, thoracic region; Z79.891 Long term (current) use of opiate analgesic
CPT/HCPCS: 62370

== ENCOUNTER 2019-04-10 07:09 | Day surgery (SDC) | payer MEDICARE, OTHER ==
[2019-04-05 15:57] VITALS: BMI 26.6
[~2019-04-10 07:09] MED LIST changes: +BUPIVACAINE (PF) 0.5% 30 ML VIAL ONE; -CLINDAMYCIN 600 MG in DEXTROSE 5% IN WATER 50 ML IVPB ONE; +LACTATED RINGERS 1,000 ML IV SCH; +MIDAZOLAM 2 MG/2 ML VIAL ONE; +fentaNYL (PF) 50 MCG/ML 2 ML AMP ONE; +methylPREDNISolone ACETATE 40 MG/ML 1 ML VIAL ONE
[2019-04-10 07:31] VITALS: TEMP 97.9
--- NOTE | 2019-04-10 08:37 | P.PCN ---
Date of Procedure: 04/10/19 Procedure(s) Performed: PREOPERATIVE DIAGNOSIS: 1-Lumbosacral spondylosis with facet arthropathy without myelopathy. 2-Bilateral sacroiliit. 3-failed back surgery syndrome lumbar area post operative Diagnosis: . Same as preoperative diagnosis PROCEDURES: 1- Left radiofrequency thermocoagulation/ablation of the L5 dorsal ramus. 2- Left multi-site radiofrequency thermocoagulation/ablation of the S1, S2, lateral branchs. ( I did not performe the RFA for S#3 because I was not able to visualize the S3 foramina ) The procedure was performed using fluoroscopic guidance during needle placement to assure proper position and maximize safety . ANESTHESIA: LOCAL ANESTHESIA and IV sedation with versed 2 mg and Fentanyle 150 mcg EBL: NONE INDICATION/MEDICAL NECESSITY: History of low back pain secondary to sacroiliitis and lumbosacral arthropathy unresponsive to more conservative treatments. The patient reported more than 50% relief of pain symptoms following 2 previous diagnostic blocks with Bupivacaine., With radiofrequency ablation of the sacroiliac joint and she had excellent pain relief, for more than 6 months and she is here for repeat radiofrequency of the sacroiliac joint. PROCEDURE DESCRIPTION: The patient was seen and identified in the preoperative area. Risks, benefits, complications, and alternatives were discussed with the patient. The patient agreed to proceed with the procedure and signed the consent. Vital signs were checked before and after the procedure and they remained stable. Patient ambulated to the procedure room and time out was completed. The patient was placed in the prone position on the procedure table and a pillow was placed under the abdomen to reduce lumbar lordosis. The lumbosacral area was prepped and draped in the usual sterile fashion. Critical pause was taken. L5 Dorsal Ramus RF: Using left oblique fluoroscopy, the junction of the transverse process and the superior articular process of the left S1 vertebra, which correspond to the fluoroscopic image of the "eye of the Jarad dog" was identified. Subsequently, a 10-cm 20 -gauge radiofrequency cannula with a 10-mm active tip was advanced under fluoroscopic guidance until contact was made with periosteum. At this level, the Sensory testing of the L5 dorsal ramus was performed at 50 Hz and 0 to 1 volt with production of concordant pain starting at 0.5 volt. Motor stimulation was done at 2.5 Hz with stimulation of mulitifidus muscle contration . No radicular symptoms or paresthesias were produced during the testing. Subsequently, the L5 dorsal ramus was subjected to a radiofrequency ablation at 80 degree celsius for 90 seconds . after 0.5% Ropivacaine 1 ml injected at each level after negative aspirations . The needle was withdrawn intact S1, S3, Lateral Branch RF: The lateral margins of the left S1, S2, foramina were identified using AP fluoroscopy. Under fluoroscopic guidance, three 10-cm 20 -gauge radiofrequency cannula with a 10-mm active tip were inserted at 8-10 mm peripheral to the posterior S1 foramen, at various locations using clock-face coordinates. The center of the clock was registered at the lateral margin of the foramen. The 9:30, 8:00, and 6:30 oclock positions were used. At this level, the sensory testing of the S1 lateral branch was performed at 50 Hz and 0 to 1 volt at the three levels with production of concordant pain starting at 0.5 volt. Motor stimulation was done at 2.5 Hz. No radicular symptoms or paresthesias were produced during the testing. Subsequently, the S1 lateral branch was subjected to a radiofrequency ablation at a mode of 90 seconds at 80 degrees Celsius at the 3 levels after negative motor and sensory testing and after injecting 0.5 ml of preservative free Ropivacaine 0.5 %. And before the needles taken out mixture of ropivacaine 0.5% 3 mL ,and 20 mg of Depo-Medrol mixed together and 1 mL injected at each level before the needles taken out , then the same procedure was performed at the level of the S2 foramen. The needle was withdrawn intact after each injection. ( COMPLICATIONS: The patient tolerated the procedure well without any acute complications. DISPOSTION/PLAN: The patient ambulated to the recovery area after the procedure in a stable condition for observation. Patient was reexamined prior to discharge. Patient was observed for 30 minutes in the recovery area and was discharged home, accompanied by an adult, after meeting discharged criteria. Discharge instructions were give to the patient by the staff. Patient was specifically instructed not to drive today and to rest for the rest of the day. The patient will schedule a follow up visit in the clinic in weeks or earlier if needed.
[2019-04-10] MEDS ORDERED: IV FLUID CONTINUATION 1,000 ML IV ONE (08:40)
[2019-04-10 08:42] VITALS: RESP 16
[2019-04-10 08:53] VITALS: BP 114/83; PULSE 75
--- NOTE | 2019-04-10 09:34 | FL ---
Fluoroscopy HISTORY: Pain 28 seconds fluoroscopy time supplied to the referring clinician. 6 intraoperative C-arm images docum ent the procedure. See dictated report from anesthesia.
== END 2019-04-10 09:11 | disposition home or self-care (01) ==
LOC: ORPAIN 07:09
PROVIDERS: ATTEND Specialist
DX: M47.817 Spondylosis without myelopathy or radiculopathy, lumbosacral region (principal); M46.1 Sacroiliitis, not elsewhere classified; M96.1 Postlaminectomy syndrome, not elsewhere classified; Z88.5 Allergy status to narcotic agent; Z88.0 Allergy status to penicillin; Z88.8 Allergy status to other drugs, medicaments and biological substances
CPT/HCPCS: 81025; 64640 ×2; 64635; J2250; J1030; J3010; 99152; 99153

== ENCOUNTER → 2019-06-11 | Day surgery (SDC) | payer MEDICARE, OTHER ==
[2019-06-11 07:23] VITALS: BP 119/87; PULSE 76; RESP 16; TEMP 98.3
--- NOTE | 2019-06-11 07:39 | P.PCN ---
Date of Procedure: 06/11/19 Procedure(s) Performed: PROCEDURE: Intrathecal pain pump analysis, programming and reprogramming, and intrathecal pain pump refill. PREOPERATIVE DIAGNOSES: 1. near empty intrathecal pain pump time for refill. 2. opioid tolerance 3. lumbar PLPS 4. sacroiliitis, lumbar spondylosis without myelopathy POSTOPERATIVE DIAGNOSES: same ANESTHESIA: None. CONDITION: Stable. INDICATION: This is a 48-year-old patient with a long history of chronic pain secondary to lumbar PLPS, sacroiliitis, and lumbar spondylosis. Patient previously had an intrathecal pump placed, which is now close to empty, and patient presents for refill today. Patient denies any side effects of the intrathecal medication, including new weakness, new numbness, excessive drowsiness or sleepiness, nausea/vomiting, weight gain, or night sweats. Patient also denies suicidal ideation, and reports that the current pain medication is helping control the chronic pain DESCRIPTION: The intrathecal pain pump was analyzed and showed that the patient currently has reservoir volume of [9.5] mL. The patient is receiving intrathecal hydromorphone PF at concentration [16] mg/ ml, baclofen 163 mcg/ml and bupivacaine PF at concentration [12] mg/ml. Patient receiving daily dose of hydromorphone [5.9] mg/day, baclofen [60 ] mcg/day, and bupivacaine [4.4] mg/day. The location of the pump (right buttock) was prepped with chlorhexidine x3. Then, the 22-gauge needle from the [employer] kit was advanced through the pump port.Total of [10 ] ml was removed from the pump, and it was refilled with the new medication total volume of [40] ml of a solution containing intrathecal hydromorphone PF at concentration [16] mg/ ml, baclofen [163] mcg/ml and bupivacaine PF at concentration [12] mg/ml. The patient will continue with the same daily dose hydromorphone [5.9] mg/day, baclofen [60] mcg/day, and bupivacaine [4.4] mg/day.
== END ==
LOC: PNWHC3 06:54
PROVIDERS: ATTEND Specialist
DX: Z45.1 Encounter for adjustment and management of infusion pump (principal); G89.29 Other chronic pain; M96.1 Postlaminectomy syndrome, not elsewhere classified; M46.1 Sacroiliitis, not elsewhere classified; M47.816 Spondylosis without myelopathy or radiculopathy, lumbar region; Z79.891 Long term (current) use of opiate analgesic
CPT/HCPCS: 62370

== ENCOUNTER → 2019-09-03 | Day surgery (SDC) | payer MEDICARE, OTHER ==
[2019-09-03 13:29] VITALS: BP 111/74; PULSE 74; RESP 16
--- NOTE | 2019-09-03 14:00 | P.PCN ---
Date of Procedure: 09/03/19 Procedure(s) Performed: PROCEDURE: Intrathecal pain pump analysis, programming and reprogramming, and intrathecal pain pump refill. PREOPERATIVE DIAGNOSES: 1. near empty intrathecal pain pump time for refill. 2. opioid tolerance 3. lumbar PLPS 4. sacroiliitis 5-lumbar spondylosis with lumbar facet arthropathy without myelopathy POSTOPERATIVE DIAGNOSES: same ANESTHESIA: None. CONDITION: Stable. INDICATION: This is a 49-year-old patient with a long history of chronic pain secondary to lumbar PLPS, sacroiliitis, and lumbar spondylosis. Patient previously had an intrathecal pump placed, which is now close to empty, and patient presents for refill today. Patient denies any side effects of the intrathecal medication, including new weakness, new numbness, excessive drowsiness or sleepiness, nausea/vomiting, weight gain, or night sweats. Patient also denies suicidal ideation, and reports that the current pain medication is helping control the chronic pain DESCRIPTION: The intrathecal pain pump was analyzed and showed that the patient currently has reservoir volume of [9] mL. The patient is receiving intrathecal hydromorphone PF at concentration [16] mg/ ml, baclofen 163 mcg/ml and bupivacaine PF at concentration [12] mg/ml. Patient receiving daily dose of hydromorphone [5.9] mg/day, baclofen [60 ] mcg/day, and bupivacaine [4.4] mg/day. The location of the pump (right buttock) was prepped with chlorhexidine x3. Then, the 22-gauge needle from the [employer] kit was advanced through the pump port.Total of [11] ml was removed from the pump, and it was refilled with the new medication total volume of [40] ml of a solution containing intrathecal hydromorphone PF at concentration [16] mg/ ml, baclofen [163] mcg/ml and bupivacaine PF at concentration [12] mg/ml. The patient will continue with the same daily dose hydromorphone [5.9] mg/day, baclofen [60] mcg/day, and bupivacaine [4.4] mg/day. Plan patient will follow up in the pain clinic in 3 months for pump refill Patient complaining of increased low back pain which is increased with any movement examination shows -Constitutiona : Cooperative , not in acute distress . -HEENT : nech : supple , no Lymphadenopathy , normal thyroid size . eyes : no ptosis , no icterus, no photophobia . ENT : normal of hearing , normal oropharynx , no Thrush . - Respiratory : Chest clear to auscultations Bilaterally , no wheezing , no Rhonchi . - Cardiovascula : regular rate and rhythem , S1 , S2 , no S3 , no S4. - Gastrointestina : abdomen soft no tenderness , bowel sounds , no organomegally . - Genitourinary : Defferred . - neurologic : Cranial nerve II to XII intact , no focal neurological deffecit . -psychatric : alert , oriented X 3 , appropriate affect , intact judgment and insight . -Lymphatic : no Lymphadenopathy . - musculoskeltal : Lumber spine moter stegnth lower extremities ,thigh and legs 5/5 Right side , 5/5 Left side deep tendon reflexes : normal Knee Jerk , normal ankle Jerk lumber facet Loading Test= positive on the right side only Range of motion of the lumbar spine Flexion 30 degrees, extension 10 degrees strait leg raising test , positive at 30 degree Fabere test negative RT and negative LT . Patient could benefit from repeat RFA of the right-sided medial branch lumbar area L3,L4 ,L5 to target the right side facet joint at L4 5 and L5-S1
== END ==
LOC: PNWHC3 12:58
PROVIDERS: ATTEND Specialist
DX: G89.29 Other chronic pain (principal); M96.1 Postlaminectomy syndrome, not elsewhere classified; M46.1 Sacroiliitis, not elsewhere classified; M47.816 Spondylosis without myelopathy or radiculopathy, lumbar region
CPT/HCPCS: 80307; 62370; G0482

== ENCOUNTER 2019-09-19 07:53 | Day surgery (SDC) | payer MEDICARE, OTHER ==
[2019-09-19] MEDS ORDERED: LIDOCAINE 1% (10MG/ML) FOR IV START INTRADERMA ONE (08:33)
[2019-09-19] MEDS ORDERED: LACTATED RINGERS 1,000 ML IV ONE (08:33)
[2019-09-19] MEDS ORDERED: ROPIVACAINE 5MG/ML 20ML VIAL ONE (08:38)
[2019-09-19] MEDS ORDERED: MIDAZOLAM 2 MG/2 ML VIAL ONE (08:38)
[2019-09-19] MEDS ORDERED: fentaNYL (PF) 50 MCG/ML 2 ML AMP ONE (08:38)
--- NOTE | 2019-09-19 09:04 | P.PCN ---
Date of Procedure: 09/19/19 Procedure(s) Performed: PREOPERATIVE DIAGNOSIS: 1-Lumbar Spondylosis with Facet Arthropathy without myelopathy. 2- Lumber degenerative disc disease. 3-FBSS lumbar area POSTOPERATIVE DIAGNOSIS: 1- Lumbar Spondylosis with Facet Arthropathy without myelopathy. 2- Lumber degenerative disc disease. 3-FBSS lumbar area PROCEDURES : Right Radiofrequency thermocoagulation, L3 , L4 , and L5 medial branch, with fluoroscopic guidance (fluoroscopy images available in the radiology department) ( to denervate the facet joint at L4-5 ,and L5-S1 levels ) ANESTHESIA: Moderate sedation with intravenous versed 2 mg and fentaneyl 200 mcg, and local infiltration with Ropivacaine 0.5 % . EBL: Minimal PROCEDURE INDICATION: The patient with low back pain secondary to lumbar facet arthropathy who had more than 50% relief of her pain with previous diagnostic lumbar medial branch block with bupivacaine. PROCEDURE DESCRIPTION / TECHNIQUE: The patient was seen and identified in the preoperative area. Risks, benefits, complications, including but not limited to risk of infection ,bleeding , allergic reactions to the medications and no complete pain releife , and alternatives were discussed with the patient, the patient agreed to proceed with the procedure and signed the consent. IV was started. Vital signs remained stable throughout the procedure. Patient was taken to the OR and time out was completed. The patient was placed in the prone position on the procedure table. The lumber area was prepped and draped in the usual sterile fashion. . Vital signs were closely monitored during the procedure .IV sedation was used during the procedure to decrease patients anxiety. Using AP and then oblique fluoroscopy, the ``eye of the Jarad dog corresponding to the connection between the superior and transverse articular processes of right L3, L4, and L5 were identified, marked, and localized with 1% lidocaine. Subsequently, a [id number] radiofrequency cannula with a 10- mm active tip was advanced guided by fluoroscopy to each of the``eyes of the Marbella ebrgeron dog at right L3, L4, and L5. Each site then underwent sensory testing at 50 Hz and 0 to 1 volt and motor testing at 2.5 Hz and 0 to 3 volt with local stimulation, but no radicular symptoms down the legs. Thereafter each sites underwent radiofrequency thermocoagulation at 80 degrees celsius for 90 seconds after injecting 0.5 ml of PF Ropivacaine 1ml, then after the thermocoagulation done , 1 ml of the block solution containing 3 ml of Ropivacaine 0.5% was injected at the right L3 , L4 , and L5 , levels after negative aspiration of CSF and blood and with no paresthesias. Cannulas were retracted while injecting lidocaine 1% until the needle is out. note = patient hadn't intrathecal pain pump catheter/pump and the catheter was located on the right side lumbar paravertebral area and special care was taken to avoid contacting the needle and with the catheter(concerned about the intrathecal catheter puncture ) At the end of the procedure, the skin was cleansed and bandages were applied. COMPLICATIONS: No acute complications. DISPOSITION / PLANS: The patient was placed in a supine position and transferred to the recovery area in a stable condition for observation and was discharged from the recovery room after meeting discharge criteria. Home discharge instructions given to the patient by the staff. The patient was reexamined prior to discharge. The patient will schedule a follow up in the clinic in 2-4 weeks. note = no steroid was used
[2019-09-19] MEDS ORDERED: IV FLUID CONTINUATION 1,000 ML IV ONE (09:07)
--- NOTE | 2019-09-19 14:29 | FL ---
Fluoroscopy HISTORY: Pain 10 seconds fluoroscopy time supplied to the referring clinician. 4 intraoperative C-arm images docum ent the procedure. See dictated report from anesthesia.
[2019-09-20 09:57] VITALS: BP 107/79; PULSE 79; RESP 16; TEMP 97.7
== END 2019-09-19 09:46 | disposition home or self-care (01) ==
LOC: ORPAIN 07:53
PROVIDERS: ATTEND Specialist
DX: M47.816 Spondylosis without myelopathy or radiculopathy, lumbar region (principal); M51.36 Other intervertebral disc degeneration, lumbar region; M96.1 Postlaminectomy syndrome, not elsewhere classified; Z88.0 Allergy status to penicillin; Z88.6 Allergy status to analgesic agent; Z88.8 Allergy status to other drugs, medicaments and biological substances; Z78.0 Asymptomatic menopausal state; Z97.8 Presence of other specified devices
CPT/HCPCS: 64635; 64636; 81025; J2250; J3010; J2795; 99152

== ENCOUNTER → 2019-11-20 | Day surgery (SDC) | payer MEDICARE, OTHER ==
[2019-09-17 09:32] VITALS: BMI 26.6
[2019-11-20 13:40] VITALS: BP 120/78; PULSE 91; RESP 18
--- NOTE | 2019-11-20 14:01 | P.PCN ---
Date of Procedure: 11/20/19 Procedure(s) Performed: PROCEDURE: Intrathecal pain pump analysis, programming and reprogramming, and intrathecal pain pump refill. PREOPERATIVE DIAGNOSES: 1. near empty intrathecal pain pump time for refill. 2. opioid tolerance 3. lumbar PLPS 4. sacroiliitis 5-lumbar spondylosis with lumbar facet arthropathy without myelopathy POSTOPERATIVE DIAGNOSES: same ANESTHESIA: None. CONDITION: Stable. INDICATION: This is a 49-year-old patient with a long history of chronic pain secondary to lumbar PLPS, sacroiliitis, and lumbar spondylosis. Patient previously had an intrathecal pump placed, which is now close to empty, and patient presents for refill today. Patient denies any side effects of the intrathecal medication, including new weakness, new numbness, excessive drowsiness or sleepiness, nausea/vomiting, weight gain, or night sweats. Patient also denies suicidal ideation, and reports that the current pain medication is helping control the chronic pain DESCRIPTION: The intrathecal pain pump was analyzed and showed that the patient currently has reservoir volume of [11.3] mL. The patient is receiving intrathecal hydromorphone PF at concentration [16] mg/ ml, baclofen 163 mcg/ml and bupivacaine PF at concentration [12] mg/ml. Patient receiving daily dose of hydromorphone [5.9] mg/day, baclofen [60 ] mcg/day, and bupivacaine [4.4] mg/day. The location of the pump (right buttock) was prepped with chlorhexidine x3. Then, the 22-gauge needle from the [employer] kit was advanced through the pump port.Total of [13] ml was removed from the pump, and it was refilled with the new medication total volume of [40] ml of a solution containing intrathecal hydromorphone PF at concentration [16] mg/ ml, baclofen [163] mcg/ml and bupivacaine PF at concentration [12] mg/ml. The patient will continue with the same daily dose hydromorphone [5.9] mg/day, baclofen [60] mcg/day, and bupivacaine [4.4] mg/day. Plan patient will follow up in the pain clinic in 3 months for pump refill Patient complaining of increased low back pain which is increased with any movement examination shows -Constitutiona : Cooperative , not in acute distress . -HEENT : nech : supple , no Lymphadenopathy , normal thyroid size . eyes : no ptosis , no icterus, no photophobia . ENT : normal of hearing , normal oropharynx , no Thrush . - Respiratory : Chest clear to auscultations Bilaterally , no wheezing , no Rhonchi . - Cardiovascula : regular rate and rhythem , S1 , S2 , no S3 , no S4. - Gastrointestina : abdomen soft no tenderness , bowel sounds , no organomegally . - Genitourinary : Defferred . - neurologic : Cranial nerve II to XII intact , no focal neurological deffecit . -psychatric : alert , oriented X 3 , appropriate affect , intact judgment and insight . -Lymphatic : no Lymphadenopathy . - musculoskeltal : Lumber spine moter stegnth lower extremities ,thigh and legs 5/5 Right side , 5/5 Left side - PQRS measures = - Patient's medications are documented in the chart. -Tobacco use is negative and counseling.Given. -Patient's has not received pneumococcal vaccine. -Advanced care planning discussed, patient not eligible. -Opiate contract signed. -Pain positive and follow-up visit/procedure is scheduled. -Patient's blood pressure measured [ 120/78 ] , and documented in the record ,and patient will follow up with the primary care. -Patient's weight was measured and body mass index the normal limits and counseling was done. and patient instructed to follow-up with the primary care physician. -Patient was not identified as an unhealthy alcohol user
== END ==
LOC: PNWHC3 13:17
PROVIDERS: ATTEND Specialist
DX: Z45.1 Encounter for adjustment and management of infusion pump (principal); M96.1 Postlaminectomy syndrome, not elsewhere classified; M46.1 Sacroiliitis, not elsewhere classified; M47.816 Spondylosis without myelopathy or radiculopathy, lumbar region; Z79.891 Long term (current) use of opiate analgesic
CPT/HCPCS: 62370

== ENCOUNTER → 2020-02-12 | Day surgery (SDC) | payer MEDICARE, OTHER ==
[2020-02-12 13:23] VITALS: BP 122/70; PULSE 77; RESP 20; TEMP 97.8
--- NOTE | 2020-02-12 13:32 | P.PCN ---
Date of Procedure: 02/12/20 Description of Procedure: PROCEDURE: Intrathecal pain pump analysis, programming and reprogramming, and intrathecal pain pump refill. PREOPERATIVE DIAGNOSES: 1. near empty intrathecal pain pump time for refill. 2. opioid tolerance 3. lumbar PLPS 4. sacroiliitis 5-lumbar spondylosis with lumbar facet arthropathy without myelopathy POSTOPERATIVE DIAGNOSES: same ANESTHESIA: None. CONDITION: Stable. INDICATION: This is a 49-year-old patient with a long history of chronic pain secondary to lumbar PLPS, sacroiliitis, and lumbar spondylosis. Patient prev iously had an intrathecal pump placed, which is now close to empty, and patient presents for refill today. Patient denies any side effects of the intrathecal medication, including new weakness, new numbness, excessive drowsiness or sleepiness, nausea/vomiting, weight gain, or night sweats. Patient also denies suicidal ideation, and reports that the current pain medication is helping control the chronic pain DESCRIPTION: The intrathecal pain pump was analyzed and showed that the patient currently has reservoir volume of [9] mL. The patient is receiving intrathecal hydromorphone PF at concentration [16] mg/ ml, baclofen 163 mcg/ml and bupivacaine PF at concentration [12] mg/ml. Patient receiving daily dose of hydromorphone [5.9] mg/day, baclofen [60 ] mcg/day, and bupivacaine [4.4] mg/day. The location of the pump (right buttock) was prepped with chlorhexidine x3. Then, the 22-gauge needle from the [employer] kit was advanced through the pump port.Total of [11] ml was removed from the pump, and it was refilled with the new medication total volume of [40] ml of a solution containing intrathecal hydromorphone PF at concentration [16] mg/ ml, baclofen [163] mcg/ml and bupivacaine PF at concentration [12] mg/ml. The patient will continue with the same daily dose hydromorphone [5.9] mg/day, baclofen [60] mcg/day, and bupivacaine [4.4] mg/day. Plan patient will follow up in the pain clinic in 3 months for pump refill. I also scheduled her for left L3-L4, L4-L5, L5-S1 RFA, she had this last in 2014. Patient complaining of increased low back pain which is increased with any movement examination shows -Constitutiona : Cooperative , not in acute distress . -HEENT : nech : supple , no Lymphadenopathy , normal thyroid size . eyes : no ptosis , no icterus, no photophobia . ENT : normal of hearing , normal orophary nx , no Thrush . - Respiratory : Chest clear to auscultations Bilaterally , no wheezing , no Rhonchi . - Cardiovascula : regular rate and rhythem , S1 , S2 , no S3 , no S4. - Gastrointestina : abdomen soft no tenderness , bowel sounds , no organomegally . - Genitourinary : Defferred . - neurologic : Cranial nerve II to XII intact , no focal neurological deffecit . -psychatric : alert , oriented X 3 , appropriate affect , intact judgment and insight . -Lymphatic : no Lymphadenopathy . - musculoskeltal : Lumber spine moter stegnth lower extremities ,thigh and legs 5/5 Right side , 5/5 Left side - PQRS measures = - Patient's medications are documented in the chart. -Tobacco use is negative and counseling.Given. -Patient's has not received pneumococcal vaccine. -Advanced care planning discussed, patient not eligible. -Opiate contract signed. -Pain positive and follow-up visit/procedure is scheduled. -Patient's blood pressure measured [ 120/78 ] , and documented in the record ,and patient will follow up with the primary care. -Patient's weight was measured and body mass index the normal limits and counseling was done. and patient instructed to follow-up with the primary care physician. -Patient was not identified as an unhealthy alcohol user
== END ==
LOC: PNWHC3 13:01
PROVIDERS: ATTEND Anesthesiology
DX: Z45.1 Encounter for adjustment and management of infusion pump (principal); G89.29 Other chronic pain; M96.1 Postlaminectomy syndrome, not elsewhere classified; M46.1 Sacroiliitis, not elsewhere classified; M47.816 Spondylosis without myelopathy or radiculopathy, lumbar region
CPT/HCPCS: 62370

== ENCOUNTER 2020-03-03 06:58 | Day surgery (SDC) | payer MEDICARE, OTHER ==
[2020-03-02 11:37] VITALS: BMI 24.9
[2020-03-03 07:25] VITALS: RESP 16; TEMP 97.6
[2020-03-03] MEDS ORDERED: LACTATED RINGERS 1,000 ML IV ONE (07:29)
[2020-03-03] MEDS ORDERED: LIDOCAINE 1% (10MG/ML) FOR IV START INTRADERMA ONE (07:30)
[2020-03-03] MEDS ORDERED: fentaNYL (PF) 50 MCG/ML 2 ML AMP ONE (07:56)
[2020-03-03] MEDS ORDERED: ROPIVACAINE 5MG/ML 20ML VIAL ONE (07:56)
[2020-03-03] MEDS ORDERED: LIDOCAINE 1% INJ 10MG/ML (20 ML MDV) ONE (07:56)
[2020-03-03] MEDS ORDERED: MIDAZOLAM 2 MG/2 ML VIAL ONE (07:56)
--- NOTE | 2020-03-03 08:18 | P.PCN ---
Date of Procedure: 03/03/20 Description of Procedure: PREOPERATIVE DIAGNOSIS: Lumbar Facet Arthropathy without myelopathy POSTOPERATIVE DIAGNOSIS: Same PROCEDURES: Left Radiofrequency thermocoagulation of L3-4, L4-5, L5-S1 medial branches, with fluoroscopic guidance ANESTHESIA: IV sedation with 2 mg versed and 100 g fentanyl and local infiltration with lidocaine 1% 10 ml Imaging: Fluoroscopy was used, images where saved to the medical record PROCEDURE INDICATION: The patient with low back pain secondary to lumbar facet arthropathy who had more than 50% relief of pain with previous diagnostic lumbar medial branch block with local anesthetic. PROCEDURE DESCRIPTION / TECHNIQUE: The patient was seen and identified in the preoperative area. Risks, benefits, complications, including but not limited to risk of infection, bleeding, allergic reactions to the medications and no complete pain relief, and alternatives were discussed with the patient, the patient agreed to proceed with the procedure and signed the consent. IV was started. Vital signs remained stable throughout the procedure. Patient was taken to the OR and time out was completed. The patient was placed in the prone position on the procedure table. The lumber area was prepped and draped in the usual sterile fashion. Vital signs were closely monitored during the procedure. IV sedation was used during the procedure to decrease patient anxiety. Using AP and then oblique fluoroscopy, the eye of the Jarad dog corresponding to the connection between the superior and transverse articular processes of L4, L5, and sacral Ala were identified, marked, and localized with 1% lidocaine. Subsequently, a 20 [id number] radiofrequency cannula with a 10-mm active tip was advanced guided by fluoroscopy to the junction of the pedicle and transverse process of each identified level. Each site then underwent sensory testing at 50 Hz and 0 to 1 volt and motor testing at 2.5 Hz and 0 to 3 volt with local stimulation, no radicular symptoms sensed by the patient and no obvious motor stimulation noted. Thereafter the tested sites underwent radiofrequency thermocoagulation at 80 degrees celsius for 90 seconds after injecting 1 ml of PF lidocaine 1%. Then after the thermocoagulation was done, 1 ml of the block solution containing ropivaciane 0.5% was injected at the lesioned sites after negative aspiration of CSF and blood and with no paresthesias. Cannulas were retracted. At the end of the procedure, the skin was cleansed and bandages were applied. COMPLICATIONS: No acute complications. DISPOSITION / PLANS: The patient was placed in a supine position and transferred to the recovery area in a stable condition for observation and was discharged from the recovery room after meeting discharge criteria. Home discharge instructions given to the patient by the staff. The patient was reexamined prior to discharge. Repeat the right side as soon as possible
[2020-03-03] MEDS ORDERED: IV FLUID CONTINUATION 400 ML IV ONE (08:21)
[2020-03-03 08:29] VITALS: BP 104/71; PULSE 83
--- NOTE | 2020-03-03 10:02 | FL ---
EXAMINATION TYPE: FL guided pain mgmt statistic DATE OF EXAM: 03/03/2020 HISTORY: Fluoroscopy time 4 seconds of fluoroscopy provided. IMPRESSION: 1. Fluoroscopy time.
== END 2020-03-03 09:03 | disposition home or self-care (01) ==
LOC: ORPAIN 06:58
PROVIDERS: ATTEND Hospitalist
DX: M47.816 Spondylosis without myelopathy or radiculopathy, lumbar region (principal)
CPT/HCPCS: 64635; 64636; 81025

== ENCOUNTER → 2020-05-01 | Day surgery (SDC) | payer MEDICARE, OTHER ==
[~2020-05-01] MED LIST changes: -BUPIVACAINE (PF) 0.5% 30 ML VIAL ONE; +BUPIVACAINE 8.1-40 MG/ML, 31-60 ML SYRINGE MC ONE; +HYDROMORPHONE FOR ANAZAO - PER 4 MG MISCELLANE ONE; -LACTATED RINGERS 1,000 ML IV SCH; -MIDAZOLAM 2 MG/2 ML VIAL ONE; +[UNRECOGNIZED DRUG - OTHER] MISCELLANE ONE; -fentaNYL (PF) 50 MCG/ML 2 ML AMP ONE; -methylPREDNISolone ACETATE 40 MG/ML 1 ML VIAL ONE
[2020-05-01 11:36] VITALS: BP 108/75; PULSE 74; RESP 18; TEMP 98
--- NOTE | 2020-05-01 12:07 | P.PCN ---
Date of Procedure: 05/01/20 Description of Procedure: PROCEDURE: Intrathecal pain pump analysis, programming and reprogramming, and intrathecal pain pump refill. PREOPERATIVE DIAGNOSES: 1. near empty intrathecal pain pump time for refill. 2. opioid tolerance 3. lumbar PLPS 4. sacroiliitis 5-lumbar spondylosis with lumbar facet arthropathy without myelopathy POSTOPERATIVE DIAGNOSES: same ANESTHESIA: None. CONDITION: Stable. INDICATION: This is a 50-year-old patient with a long history of chronic pain secondary to lumbar PLPS, sacroiliitis, and lumbar spondylosis. Patient prev iously had an intrathecal pump placed, which is now close to empty, and patient presents for refill today. Patient denies any side effects of the intrathecal medication, including new weakness, new numbness, excessive drowsiness or sleepiness, nausea/vomiting, weight gain, or night sweats. Patient also denies suicidal ideation, and reports that the current pain medication is helping control the chronic pain DESCRIPTION: The intrathecal pain pump was analyzed and showed that the patient currently has reservoir volume of [10.9] mL. The patient is receiving intrathecal hydromorphone PF at concentration [16] mg/ ml, baclofen 163 mcg/ml and bupivacaine PF at concentration [12] mg/ml. Patient receiving daily dose of hydromorphone [5.9] mg/day, baclofen [60 ] mcg/day, and bupivacaine [4.4] mg/day. The location of the pump (right buttock) was prepped with chlorhexidine x3. Then, the 22-gauge needle from the [employer] kit was advanced through the pump p ort.Total of [10] ml was removed from the pump, and it was refilled with the new medication total volume of [40] ml of a solution containing intrathecal hydromorphone PF at concentration [16] mg/ ml, baclofen [163] mcg/ml and bupivacaine PF at concentration [12] mg/ml. The patient will continue with the same daily dose hydromorphone [5.9] mg/day, baclofen [60] mcg/day, and bupivacaine [4.4] mg/day. Plan patient will follow up in the pain clinic in 3 months for pump refill
== END ==
LOC: PNWHC3 11:09
PROVIDERS: ATTEND Anesthesiology
DX: Z45.1 Encounter for adjustment and management of infusion pump (principal); Z79.891 Long term (current) use of opiate analgesic; G89.29 Other chronic pain; M96.1 Postlaminectomy syndrome, not elsewhere classified; M46.1 Sacroiliitis, not elsewhere classified; M47.816 Spondylosis without myelopathy or radiculopathy, lumbar region; M51.34 Other intervertebral disc degeneration, thoracic region; M51.36 Other intervertebral disc degeneration, lumbar region
CPT/HCPCS: 62370; 80307

== ENCOUNTER → 2020-07-06 | Outpatient (CLI) | payer MEDICARE, OTHER ==
--- NOTE | 2020-07-07 09:42 | MM ---
Reason for exam: screening (asymptomatic). Last mammogram was performed 3 years ago. History: Patient is postmenopausal and is nulliparous. Family history of breast cancer in maternal aunt and breast cancer in paternal aunt. Physical Findings: A clinical breast exam by your physician is recommended on an annual basis and results should be correlated with mammographic findings. MG 3D Screening Mammo W/Cad Bilateral CC and MLO view(s) were taken. Prior study comparison: July 10, 2017, bilateral MG screening mammo w CAD. The breast tissue is heterogeneously dense. This may lower the sensitivity of mammography. There is no discrete abnormality. No significant changes when compared with prior studies. ASSESSMENT: Negative, BI-RAD 1 RECOMMENDATION: Routine screening mammogram of both breasts in 1 year.
== END | disposition home or self-care (01) ==
LOC: RADMAMWWP 15:50
PROVIDERS: ATTEND Family Medicine
DX: Z12.31 Encounter for screening mammogram for malignant neoplasm of breast (principal); Z80.3 Family history of malignant neoplasm of breast; Z78.0 Asymptomatic menopausal state
CPT/HCPCS: 77063; 77067

== ENCOUNTER → 2020-07-15 | Day surgery (SDC) | payer MEDICARE, OTHER ==
--- NOTE | 2020-07-15 13:07 | P.PCN ---
Date of Procedure: 07/15/20 Description of Procedure: PROCEDURE: Intrathecal pain pump analysis, programming and reprogramming, and intrathecal pain pump refill. PREOPERATIVE DIAGNOSES: 1. near empty intrathecal pain pump time for refill. 2. opioid tolerance 3. lumbar PLPS 4. sacroiliitis 5-lumbar spondylosis with lumbar facet arthropathy without myelopathy POSTOPERATIVE DIAGNOSES: same ANESTHESIA: None. CONDITION: Stable. INDICATION: This is a 50-year-old patient with a long history of chronic pain secondary to lumbar PLPS, sacroiliitis, and lumbar spondylosis. Patient prev iously had an intrathecal pump placed, which is now close to empty, and patient presents for refill today. Patient denies any side effects of the intrathecal medication, including new weakness, new numbness, excessive drowsiness or sleepiness, nausea/vomiting, weight gain, or night sweats. Patient also denies suicidal ideation, and reports that the current pain medication is helping control the chronic pain DESCRIPTION: The intrathecal pain pump was analyzed and showed that the patient currently has reservoir volume of [12] mL. The patient is receiving intrathecal hydromorphone PF at concentration [16] mg/ ml, baclofen 163 mcg/ml and bupivacaine PF at concentration [12] mg/ml. Patient receiving daily dose of hydromorphone [5.9] mg/day, baclofen [60 ] mcg/day, and bupivacaine [4.4] mg/day. The location of the pump (right buttock) was prepped with chlorhexidine x3. Then, the 22-gauge needle from the [employer] kit was advanced through the pump port.Total of [17] ml was removed from the pump, and it was refilled with the new medication total volume of [40] ml of a solution containing intrathecal hydromorphone PF at concentration [16] mg/ ml, baclofen [163] mcg/ml and bupivacaine PF at concentration [12] mg/ml. The patient will continue with the same daily dose hydromorphone [5.9] mg/day, baclofen [60] mcg/day, and bupivacaine [4.4] mg/day. Plan patient will follow up in the pain clinic in 3 months for pump refill
[2020-07-15 14:38] VITALS: BP 116/80; PULSE 64; RESP 18; TEMP 97.6
== END ==
LOC: PNWHC3 12:48
PROVIDERS: ATTEND Anesthesiology
DX: M96.1 Postlaminectomy syndrome, not elsewhere classified (principal); M47.816 Spondylosis without myelopathy or radiculopathy, lumbar region; M46.1 Sacroiliitis, not elsewhere classified; Z79.891 Long term (current) use of opiate analgesic
CPT/HCPCS: 62370; J1170; J0475

== ENCOUNTER → 2020-10-07 | Day surgery (SDC) | payer MEDICARE, OTHER ==
--- NOTE | 2020-10-07 13:09 | P.PCN ---
Date of Procedure: 10/07/20 Anesthesia: none Pathology: none sent Condition: stable Disposition: no change Description of Procedure: Procedure: Intrathecal pain pump analysis, programming and reprogramming, int rathecal pain pump refill. PREOPERATIVE DIAGNOSES: 1. near empty intrathecal pain pump . 2. 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 Patient previously had an intrathecal pump placed, which is now close to empty, and patient presents for refill today. Patient denies any side effects of the intrathecal medication, including new weakness, new numbness, excessive drowsiness or sleepiness, nausea/vomiting, weight gain, or night sweats. Patient denies any new weakness or paresthesia in the lower extremities. Patient also denies suicidal ideation, and reports that the current pain medication is helping control the chronic pain and improve the patient's activities of daily living. The patient denies any new neurologic symptoms in the lower extremities. The patient is having increasing pain in the lower back area on the left side which is similar to the previous pain for which she received left sacroiliac RFA and helped her pain significantly. By physical exam she has normal muscle strength bilaterally in the lower extremities. Positive significant tenderness in the left sacroiliac joint and Vasquez's test is positive on the left side. We will plan on doing left sacroiliac lateral branches S1, S2 and S3 plus the lateral branch for the L5 at the L5-S1 level RFA .. ANESTHESIA: None. CONDITION: Stable. Description of the procedure; The intrathecal opioid pump was analyzed and showed a current reservoir residual volume of 9.1 mls. Skin was prepped with ChloraPrep and draped in a sterile manner. I used 22- gauge needle found in the [employer] intrathecal access to go through the central pump port. I withdrew 11.5 MLS of the residual solution. 11.5 mls were withdrawn. Then the new medication was injected incrementally with frequent aspiration to ensure delivery of the new medication inside the pump reservoir. The new medication was infused inside the pump reservoir through a filter provided the [employer] kit. The new medication concentration is: Bupivacaine 4 mg per mL, baclofen 163 g per mL, Dilaudid 60 mg per mL The pump then was reprogrammed for a new reservoir volume of 40 mls and the rate of Dilaudid 5.9 mg/d, bupivacaine 4.4 mg/d, and baclofen 60.1 g a day. The patient tolerated the procedure well. The patient is receiving oral opioids from her primary care physician specifically [place] 10 mg 3 times a day and she also gets and Neurontin 300 mg 5 times a day.
[2020-10-07 13:17] VITALS: BP 108/75; PULSE 78; RESP 16; TEMP 97.7
== END ==
LOC: PNWHC3 12:26
PROVIDERS: ATTEND Anesthesiology
DX: Z45.49 Encounter for adjustment and management of other implanted nervous system device (principal); M96.1 Postlaminectomy syndrome, not elsewhere classified; Y83.8 Other surgical procedures as the cause of abnormal reaction of the patient, or of later complication, without mention of misadventure at the time of the procedure
CPT/HCPCS: 80307; 62370; G0482; J1170; J0475

== ENCOUNTER → 2020-12-30 | Day surgery (SDC) | payer MEDICARE, OTHER ==
[2020-12-30 13:05] VITALS: BP 112/80; PULSE 94; RESP 18; TEMP 96.9
--- NOTE | 2020-12-30 13:47 | P.PCN ---
Date of Procedure: 12/30/20 Procedure(s) Performed: PROCEDURE: Intrathecal pain pump analysis, programming and reprogramming, and intrathecal pain pump refill. PREOPERATIVE DIAGNOSES: 1. near empty intrathecal pain pump time for refill. 2. opioid tolerance 3. lumbar PLPS 4. Bilateral sacroiliitis 5-lumbar spondylosis with lumbar facet arthropathy without myelopathy POSTOPERATIVE DIAGNOSES: same ANESTHESIA: None. CONDITION: Stable. INDICATION: This is a 49-year-old patient with a long history of chronic pain secondary to lumbar PLPS, sacroiliitis, and lumbar spondylosis. Patient previously had an intrathecal pump placed, which is now close to empty, and patient presents for refill today. Patient denies any side effects of the intrathecal medication, including new weakness, new numbness, excessive drowsiness or sleepiness, nausea/vomiting, weight gain, or night sweats. Patient also denies suicidal ideation, and reports that the current pain medication is helping control the chronic pain DESCRIPTION: The intrathecal pain pump was analyzed and showed that the patient currently has reservoir volume of [9.1] mL. The patient is receiving intrathecal hydromorphone PF at concentration [16] mg/ ml, baclofen 163 mcg/ml and bupivacaine PF at concentration [12] mg/ml. Patient receiving daily dose of hydromorphone [5.9] mg/day, baclofen [60 ] mcg/day, and bupivacaine [4.4] mg/day. The location of the pump (right buttock) was prepped with chlorhexidine x3. Then, the 22-gauge needle from the [employer] kit was advanced through the pump port.Total of [13] ml was removed from the pump, and it was refilled with the new medication total volume of [40] ml of a solution containing intrathecal hydromorphone PF at concentration [16] mg/ ml, baclofen [163] mcg/ml and bupivacaine PF at concentration [12] mg/ml. The patient will continue with the same daily dose hydromorphone [5.9] mg/day, baclofen [60] mcg/day, and bupivacaine [4.4] mg/day. Plan patient will follow up in the pain clinic in 3 months for pump refill Patient complaining of increased low back pain which is increased with any movement examination shows Physical Examinations : -Constitutiona : Cooperative , not in acute distress . -HEENT : nech : supple , no Lymphadenopathy , normal thyroid size . : eyes : no ptosis , no icterus, no photophobia . - neurologic : Cranial nerve II to XII intact , no focal neurological deffecit . -psychatric : alert , oriented X 3 , appropriate affect , intact judgment and insight . -Lymphatic : no Lymphadenopathy . - musculoskeltal : Lumber spine moter stegnth lower extremities ,thigh and legs 5/5 Right side , 5/5 Left side deep tendon reflexes : normal Knee Jerk , normal ankle Jerk lumber facet Loading Test =positive Right , positive Left Range of motion of the lumbar spine Flexion 30 degrees, extension 10 degrees strait leg raising test = positive at 30 degree Fabere test= positive Right , and positive LT . Sever tenderness over the Sacroiliac joint on the Right , and Left sides Gaenslen test= positive right ,and positive left . Seated flexion test= positive right ,and positive Left . Distraction test= positive bilaterally Sacroiliac compression test= positive bilaterally Assessment and plan=1-failed back surgery syndrome lumbar area. 2-opioid tolerance. 3-lumbar spondylosis with lumbar facet arthropathy without myelopathy. 4-bilateral sacroiliitis She continued to have severe low back pain in spite of being on the intrathecal pain medication, previously we have done RFA of the sacroiliac joint, and we have done RFA of the median branch lumbar area, the RFA of the sacroiliac joint is not approved by her insurance for this reason patient could benefit from RFA of the medial branch lumbar area, after that we'll reevaluate patient's response and then if she continued to have severe low back pain in the sacroiliac joint area, to try again to get insurance approval to do the RFA of the sacroiliac joint
== END ==
LOC: PNWHC3 12:51
PROVIDERS: ATTEND Specialist
DX: Z45.1 Encounter for adjustment and management of infusion pump (principal); M96.1 Postlaminectomy syndrome, not elsewhere classified; M46.1 Sacroiliitis, not elsewhere classified; M47.816 Spondylosis without myelopathy or radiculopathy, lumbar region; Z79.891 Long term (current) use of opiate analgesic
CPT/HCPCS: 62370; J1170; J0475

== ENCOUNTER 2021-02-12 12:30 | Day surgery (SDC) | payer MEDICARE, OTHER ==
[2021-02-10 16:24] VITALS: BMI 25.7
[~2021-02-12 12:30] MED LIST changes: -BUPIVACAINE 8.1-40 MG/ML, 31-60 ML SYRINGE MC ONE; -HYDROMORPHONE FOR ANAZAO - PER 4 MG MISCELLANE ONE; +LACTATED RINGERS 1,000 ML IV SCH; -[UNRECOGNIZED DRUG - OTHER] MISCELLANE ONE
[2021-02-12 12:46] VITALS: TEMP 97.4
[2021-02-12] MEDS ORDERED: LIDOCAINE 1% (10MG/ML) FOR IV START INTRADERMA ONE (12:53)
[2021-02-12] MEDS ORDERED: ROPIVACAINE 5MG/ML 20ML VIAL ONE (13:08)
[2021-02-12] MEDS ORDERED: .fentaNYL (PF) 50 MCG/ML AMP ONE (13:09)
[2021-02-12] MEDS ORDERED: MIDAZOLAM 2 MG/2 ML VIAL ONE (13:09)
--- NOTE | 2021-02-12 13:47 | P.PCN ---
Date of Procedure: 02/12/21 Procedure(s) Performed: PREOPERATIVE DIAGNOSIS: 1-Lumbar Spondylosis with Facet Arthropathy without myelopathy. POSTOPERATIVE DIAGNOSIS: 1- Lumbar Spondylosis with Facet Arthropathy without myelopathy. PROCEDURES : Bilateral Radiofrequency thermocoagulation, L3 , L4 , and L5 medial branch, with fluoroscopic guidance (fluoroscopy images available in the radiology department) ( to denervate the facet joint at bilateral L4-5 ,and L5-S1 levels ) ANESTHESIA: Monitered anesthesia care as per anesthesia department . EBL: Minimal PROCEDURE INDICATION: The patient with low back pain secondary to lumbar facet arthropathy who had more than 50% relief of her pain with previous diagnostic lumbar medial branch block with bupivacaine. PROCEDURE DESCRIPTION / TECHNIQUE: The patient was seen and identified in the preoperative area. Risks, benefits, complications, including but not limited to risk of infection ,bleeding , allergic reactions to the medications and no complete pain releife , and alternatives were discussed with the patient, the patient agreed to proceed with the procedure and signed the consent. IV was started. Vital signs remained stable throughout the procedure. Patient was taken to the OR and time out was completed. The patient was placed in the prone position on the procedure table. The lumber area was prepped and draped in the usual sterile fashion. . Vital signs were closely monitored during the procedure .IV sedation was used during the procedure to decrease patients anxiety. Using AP and then oblique fluoroscopy, the ``eye of the Jarad dog corresponding to the connection between the superior and transverse articular processes of right L3, L4, and L5 were identified, marked, and localized with 1% lidocaine. Subsequently, a 18 [id number] radiofrequency cannula with a 10- mm active tip was advanced guided by fluoroscopy to each of the``eyes of the Jarad dog at right L3, L4, and L5. Each site then underwent sensory testing at 50 Hz and 0 to 1 volt and motor testing at 2.5 Hz and 0 to 3 volt with local stimulation, but no radicular symptoms down the legs. Thereafter each sites underwent radiofrequency thermocoagulation at 80 degrees celsius for 90 seconds after injecting 0.5 ml of PF Ropivacaine 1ml, then after the thermocoagulation done , 1 ml of the block solution containing 3 ml of Ropivacaine 0.5% was injected at the right L3 , L4 , and L5 , levels after negative aspiration of CSF and blood and with no paresthesias. Cannulas were retracted while injecting lidocaine 1% until the needle is out. The same procedure was repeated at the level of Left L3, L4, and L5 levels. At the end of the procedure, the skin was cleansed and bandages were applied. COMPLICATIONS: No acute complications. DISPOSITION / PLANS: The patient was placed in a supine position and transferred to the recovery area in a stable condition for observation and was discharged from the recovery room after meeting discharge criteria. Home discharge instructions given to the patient by the staff. The patient was reexamined prior to discharge. The patient will schedule a follow up in the clinic in 2-4 weeks. note= I did not use any steroid for the procedure .
[2021-02-12 14:19] VITALS: BP 123/72; PULSE 81; RESP 16
[2021-02-12] MEDS ORDERED: IV FLUID CONTINUATION 1,000 ML IV ONE (14:22)
--- NOTE | 2021-02-12 15:09 | FL ---
EXAMINATION TYPE: FL guided pain mgmt statistic DATE OF EXAM: 02/12/2021 HISTORY: Fluoroscopy time Less than 60 seconds of fluoroscopy provided. IMPRESSION: 1. Fluoroscopy time.
== END 2021-02-12 14:24 | disposition home or self-care (01) ==
LOC: ORPAIN 12:30
PROVIDERS: ATTEND Specialist
DX: M47.816 Spondylosis without myelopathy or radiculopathy, lumbar region (principal)
CPT/HCPCS: 64635; 64636; 81025; J2250; J3010; J2795

== ENCOUNTER → 2021-03-25 | Day surgery (SDC) | payer MEDICARE, OTHER ==
[2021-03-24 08:54] VITALS: BMI 26.1
[~2021-03-25] MED LIST changes: +BUPIVACAINE 8.1-40 MG/ML, 31-60 ML SYRINGE MC ONE; +HYDROMORPHONE FOR ANAZAO - PER 4 MG MISCELLANE ONE; -LACTATED RINGERS 1,000 ML IV SCH; +[UNRECOGNIZED DRUG - OTHER] MISCELLANE ONE
[2021-03-25 10:59] VITALS: BP 137/91; PULSE 81; RESP 16; TEMP 97.7
--- NOTE | 2021-03-25 12:19 | P.PCN ---
Date of Procedure: 03/25/21 Procedure(s) Performed: PROCEDURE: Intrathecal pain pump analysis, programming and reprogramming, and intrathecal pain pump refill. PREOPERATIVE DIAGNOSES: 1. near empty intrathecal pain pump time for refill. 2. opioid tolerance 3. lumbar PLPS 4. Bilateral sacroiliitis 5-lumbar spondylosis with lumbar facet arthropathy without myelopathy POSTOPERATIVE DIAGNOSES: same ANESTHESIA: None. CONDITION: Stable. INDICATION: This is a 50-year-old patient with a long history of chronic pain secondary to lumbar PLPS, sacroiliitis, and lumbar spondylosis. Patient previously had an intrathecal pump placed, which is now close to empty, and patient presents for refill today. Patient denies any side effects of the intrathecal medication, including new weakness, new numbness, excessive drowsiness or sleepiness, nausea/vomiting, weight gain, or night sweats. Patient also denies suicidal ideation, and reports that the current pain medication is helping control the chronic pain previously we have done RFA of the medial branch lumbar area, and we have done RFA of the sacroiliac joint bilaterally and she gets excellent pain relief after each procedure DESCRIPTION: The intrathecal pain pump was analyzed and showed that the patient currently has reservoir volume of [8.3 ] mL. The patient is receiving intrathecal hydromorphone PF at concentration [16] mg/ ml, baclofen 163 mcg/ml and bupivacaine PF at concentration [12] mg/ml. Patient receiving daily dose of hydromorphone [5.9] mg/day, baclofen [60 ] m cg/day, and bupivacaine [4.4] mg/day. The location of the pump (right buttock) was prepped with chlorhexidine x3. Then, the 22-gauge needle from the [employer] kit was advanced through the pump port.Total of [11] ml was removed from the pump, and it was refilled with the new medication total volume of [40] ml of a solution containing intrathecal hydromorphone PF at concentration [16] mg/ ml, baclofen [163] mcg/ml and bupivacaine PF at concentration [12] mg/ml. The patient will continue with the same daily dose hydromorphone [5.9] mg/day, baclofen [60] mcg/day, and bupivacaine [4.4] mg/day. Plan patient will follow up in the pain clinic in 3 months for pump refill Patient complaining of increased low back pain which is increased with any movement examination shows Physical Examinations : -Constitutiona : Cooperative , not in acute distress . -HEENT : nech : supple , no Lymphadenopathy , normal thyroid size . : eyes : no ptosis , no icterus, no photophobia . - neurologic : Cranial nerve II to XII intact , no focal neurological deffecit . -psychatric : alert , oriented X 3 , appropriate affect , intact judgment and insight . -Lymphatic : no Lymphadenopathy . - musculoskeltal : Lumber spine moter stegnth lower extremities ,thigh and legs 5/5 Right side , 5/5 Left side deep tendon reflexes : normal Knee Jerk , normal ankle Jerk lumber facet Loading Test =positive Right , positive Left Range of motion of the lumbar spine Flexion 30 degrees, extension 10 degrees strait leg raising test = positive at 30 degree Fabere test= positive Right , and positive LT . Sever tenderness over the Sacroiliac joint on the Right , and Left sides Gaenslen test= positive right ,and positive left . Seated flexion test= positive right ,and positive Left . Distraction test= positive bilaterally Sacroiliac compression test= positive bilaterally Assessment and plan=1-failed back surgery syndrome lumbar area. 2-opioid tolerance. 3-lumbar spondylosis with lumbar facet arthropathy without myelopathy. 4-bilateral sacroiliitis She continued to have severe low back pain in spite of being on the intrathecal pain medication, previously we have done RFA of the sacroiliac joint, and we have done RFA of the median branch lumbar area, the tissue could benefit from repeat RFA of the sacroiliac joint (RFA of the L5- S1 Dorsal Ramus and RFA of the lateral branches of S1, S2, S3 bilaterally), we'll try to get insurance approval before we can proceed, clinically this procedure will be very helpful to help improve the pain, and improve her activity and functionality, patient had the procedure done ,previously ,and she gets excellent pain relief.
== END ==
LOC: ORPAIN 10:23
PROVIDERS: ATTEND Specialist
DX: Z45.1 Encounter for adjustment and management of infusion pump (principal); G89.29 Other chronic pain; M96.1 Postlaminectomy syndrome, not elsewhere classified; M46.1 Sacroiliitis, not elsewhere classified; M47.816 Spondylosis without myelopathy or radiculopathy, lumbar region; Z79.891 Long term (current) use of opiate analgesic
CPT/HCPCS: 62370

== ENCOUNTER → 2021-06-15 | Day surgery (SDC) | payer MEDICARE, OTHER ==
[2021-06-14 10:55] VITALS: BMI 25.7
[2021-06-15 11:33] VITALS: BP 132/80; PULSE 90; RESP 16; TEMP 98.1
== END ==
LOC: ORPAIN 11:14
PROVIDERS: ATTEND Specialist
DX: M51.34 Other intervertebral disc degeneration, thoracic region (principal); M51.36 Other intervertebral disc degeneration, lumbar region; Z53.9 Procedure and treatment not carried out, unspecified reason

== ENCOUNTER → 2021-06-18 | Day surgery (SDC) | payer MEDICARE, OTHER ==
[2021-06-18 12:10] VITALS: BP 127/83; PULSE 88; RESP 20; TEMP 98
--- NOTE | 2021-06-18 12:42 | P.PCN ---
Date of Procedure: 06/18/21 Procedure(s) Performed: PROCEDURE: Intrathecal pain pump analysis, programming and reprogramming, and intrathecal pain pump refill. PREOPERATIVE DIAGNOSES: 1. near empty intrathecal pain pump time for refill. 2. opioid tolerance 3. lumbar PLPS 4. Bilateral sacroiliitis 5-lumbar spondylosis with lumbar facet arthropathy without myelopathy POSTOPERATIVE DIAGNOSES: same ANESTHESIA: None. CONDITION: Stable. INDICATION: This is a 50-year-old patient with a long history of chronic pain secondary to lumbar PLPS, sacroiliitis, and lumbar spondylosis. Patient previously had an intrathecal pump placed, which is now close to empty, and patient presents for refill today. Patient denies any side effects of the intrathecal medication, including new weakness, new numbness, excessive drowsiness or sleepiness, nausea/vomiting, weight gain, or night sweats. Patient also denies suicidal ideation, and reports that the current pain medication is helping control the chronic pain previously we have done RFA of the medial branch lumbar area, and we have done RFA of the sacroiliac joint bilaterally and she gets excellent pain relief after each procedure patient reported that over the last few weeks she had increased her low back pain, pain constant and increases with any activity, she reported that her pain level is 8/10 most of the time DESCRIPTION: The intrathecal pain pump was analyzed and showed that the patient currently has reservoir volume of [8.7 ] mL. The patient is receiving intrathecal hydromorphone PF at concentration [16] mg/ ml, baclofen 163 mcg/ml and bupivacaine PF at concentration [12] mg/ml. Patient receiving daily dose of hydromorphone [5.9] mg/day, baclofen [60 ] mcg/day, and bupivacaine [4.4] mg/day. The location of the pump (right buttock) was prepped with chlorhexidine x3. Then, the 22-gauge needle from the [employer] kit was advanced through the pump port.Total of [11] ml was removed from the pump, and it was refilled with the new medication total volume of [40] ml of a solution containing intrathecal hydromorphone PF at concentration [16] mg/ ml, baclofen [163] mcg/ml and bupivacaine PF at concentration [12] mg/ml. The patient will continue with the same daily dose hydromorphone [5.9] mg/day, baclofen [60] mcg/day, and bupivacaine [4.4] mg/day. Plan patient will follow up in the pain clinic in 3 months for pump refill next visit we'll consider changing the concentration of the medication to fentanyl 200 g per mL, bupivacaine 10 mg per mL and baclofen 120 g per mL, hopefully changing the medication from Dilaudid to fentanyl and it will give her better control, goes currently patient on high-dose Dilaudid ,and it will not be safe to increase the dose intrathecal Physical Examinations : -Constitutiona : Cooperative , not in acute distress . -HEENT : nech : supple , no Lymphadenopathy , normal thyroid size . : eyes : no ptosis , no icterus, no photophobia . - neurologic : Cranial nerve II to XII intact , no focal neurological deffecit . -psychatric : alert , oriented X 3 , appropriate affect , intact judgment and insight . -Lymphatic : no Lymphadenopathy . - musculoskeltal : Lumber spine moter stegnth lower extremities ,thigh and legs 5/5 Right side , 5/5 Left side deep tendon reflexes : normal Knee Jerk , normal ankle Jerk lumber facet Loading Test =positive Right , positive Left Range of motion of the lumbar spine Flexion 30 degrees, extension 10 degrees strait leg raising test = positive at 30 degree Fabere test= positive Right , and positive LT . Sever tenderness over the Sacroiliac joint on the Right , and Left sides Gaenslen test= positive right ,and positive left . Seated flexion test= positive right ,and positive Left . Distraction test= positive bilaterally Sacroiliac compression test= positive bilaterally Assessment and plan=1-failed back surgery syndrome lumbar area. 2-opioid tolerance. 3-lumbar spondylosis with lumbar facet arthropathy without myelopathy. 4-bilateral sacroiliitis She continued to have severe low back pain in spite of being on the intrathecal pain medication, previously we have done RFA of the sacroiliac joint, and we have done RFA of the median branch lumbar area, the tissue could benefit from repeat RFA of the sacroiliac joint (RFA of the L5- S1 Dorsal Ramus and RFA of the lateral branches of S1, S2, S3 bilaterally), we'll try to get insurance approval before we can proceed, clinically this procedure will be very helpful to help improve the pain, and improve her activity and functionality, patient had the procedure done ,previously ,and she gets excellent pain relief.
== END ==
LOC: ORPAIN 11:45
PROVIDERS: ATTEND Specialist
DX: M46.1 Sacroiliitis, not elsewhere classified (principal); M47.816 Spondylosis without myelopathy or radiculopathy, lumbar region
CPT/HCPCS: 62370

== ENCOUNTER → 2021-09-07 | Day surgery (SDC) | payer MEDICARE, OTHER ==
[2021-09-06 08:44] VITALS: BMI 25.7
[2021-09-07 13:06] VITALS: BP 144/69; PULSE 69; RESP 16; TEMP 97
--- NOTE | 2021-09-07 13:50 | P.PCN ---
Date of Procedure: 09/07/21 Procedure(s) Performed: PROCEDURE: Intrathecal pain pump analysis, programming and reprogramming, and intrathecal pain pump refill. PREOPERATIVE DIAGNOSES: 1. near empty intrathecal pain pump time for refill. 2. opioid tolerance 3. lumbar PLPS 4. Bilateral sacroiliitis 5-lumbar spondylosis w ith lumbar facet arthropathy without myelopathy POSTOPERATIVE DIAGNOSES: same ANESTHESIA: None. CONDITION: Stable. INDICATION: This is a 50-year-old patient with a long history of chronic pain secondary to lumbar PLPS, sacroiliitis, and lumbar spondylosis. Patient previously had an intrathecal pump placed, which is now close to empty, and patient presents for refill today. Patient denies any side effects of the intrathecal medication, including new weakness, new numbness, excessive drowsiness or sleepiness, nausea/vomiting, weight gain, or night sweats. Patient also denies suicidal ideation, and reports that the current pain medication is helping control the chronic pain previously we have done RFA of the medial branch lumbar area, and we have done RFA of the sacroiliac joint bilaterally and she gets excellent pain relief after each procedure DESCRIPTION: The intrathecal pain pump was analyzed and showed that the patient currently has reservoir volume of [10.1 ] mL. The patient is receiving intrathecal hydromorphone PF at concentration [16] mg/ ml, baclofen 163 mcg/ml and bupivacaine PF at concentration [12] mg/ml. Patient receiving daily dose of hydromorphone [5.9] mg/day, baclofen [60 ] m cg/day, and bupivacaine [4.4] mg/day. The location of the pump (right buttock) was prepped with chlorhexidine x3. Then, the 22-gauge needle from the [employer] kit was advanced through the pump port.Total of [11] ml was removed from the pump, and it was refilled with the new medication total volume of [40] ml of a solution containing intrathecal hydromorphone PF at concentration [16] mg/ ml, baclofen [163] mcg/ml and bupivacaine PF at concentration [12] mg/ml. The patient will continue with the same daily dose hydromorphone [5.9] mg/day, baclofen [60] mcg/day, and bupivacaine [4.4] mg/day. Plan patient will follow up in the pain clinic in 3 months for pump refill Last visit we discussed with the patient the option of changing the intrathecal opioid medication to fentanyl but later on patient reported that she preferred to continue getting Dilaudid , for this reason , was no change in the intrathecal opioid medication Physical Examinations : -Constitutiona : Cooperative , not in acute distress . -HEENT : nech : supple , no Lymphadenopathy , normal thyroid size . : eyes : no ptosis , no icterus, no photophobia . - neurologic : Cranial nerve II to XII intact , no focal neurological deffecit . -psychatric : alert , oriented X 3 , appropriate affect , intact judgment and insight . -Lymphatic : no Lymphadenopathy . - musculoskeltal : Lumber spine moter stegnth lower extremities ,thigh and legs 5/5 Right side , 5/5 Left side deep tendon reflexes : normal Knee Jerk , normal ankle Jerk lumber facet Loading Test =positive Right , positive Left Range of motion of the lumbar spine Flexion 30 degrees, extension 10 degrees strait leg raising test = positive at 30 degree Fabere test= positive Right , and positive LT . Sever tenderness over the Sacroiliac joint on the Right , and Left sides Gaenslen test= positive right ,and positive left . Seated flexion test= positive right ,and positive Left . Distraction test= positive bilaterally Sacroiliac compression test= positive bilaterally Assessment and plan=1-failed back surgery syndrome lumbar area. 2-opioid tolerance. 3-lumbar spondylosis with lumbar facet arthropathy without myelopathy. 4-bilateral sacroiliitis She continued to have severe low back pain in spite of being on the intrathecal pain medication, previously we have done RFA of the sacroiliac joint, and we have done RFA of the median branch lumbar area, the tissue could benefit from repeat RFA of the sacroiliac joint (RFA of the L5- S1 Dorsal Ramus and RFA of the lateral branches of S1, S2, S3 bilaterally), we'll try to get insurance approval before we can proceed, clinically this procedure will be very helpful to help improve the pain, and improve her activity and functionality, patient had the procedure done ,previously ,and she gets excellent pain relief.
== END ==
LOC: ORPAIN 12:45
PROVIDERS: ATTEND Specialist
DX: Z45.1 Encounter for adjustment and management of infusion pump (principal); M96.1 Postlaminectomy syndrome, not elsewhere classified; M46.1 Sacroiliitis, not elsewhere classified; M47.816 Spondylosis without myelopathy or radiculopathy, lumbar region; Z79.891 Long term (current) use of opiate analgesic
CPT/HCPCS: 62370; J1170; J0475

== ENCOUNTER → 2021-11-30 | Day surgery (SDC) | payer MEDICARE, OTHER ==
[~2021-11-30] MED LIST changes: +LACTATED RINGERS 1,000 ML IV SCH
[2021-11-30 12:53] VITALS: BP 137/86; PULSE 68; RESP 18; TEMP 97.2
--- NOTE | 2021-12-09 11:57 | P.PCN ---
Date of Procedure: 11/30/21 Description of Procedure: Date of Procedure: 11/30/21 Description of Procedure: Preoperative diagnosis: Lumbar post laminectomy, and chronic pain syndrome Status post intrathecal pump for chronic pain management Postoperative diagnosis: Lumbar post laminectomy, and chronic pain syndrome Status post intrathecal pump for chronic pain management PROCEDURES: 1. Intrathecal pump analysis. 2. Intrathecal pump reprogramming. 3. Intrathecal pump refill ANESTHESIA: None. EBL: None. COMPLICATIONS: None. IV FLUIDS: None. PROCEDURE INDICATION: Patient is well known to pain clinic for management of intrathecal pump for chronic pain management. Patient denied any side effects with the medications. Rated his pain is 5 out of 10 in severity. On examination lower extremity muscle strength normal, no clonus. Patient came here for pump refill. PROCEDURE DESCRIPTION: The patient was seen and identified in the preoperative area. Risks, benefits, complications, and alternatives were discussed with the patient. The patient agreed to proceed with the procedure. Intrathecal pump was analyzed and displayed the following information: Type: SynchroMed Type II B Medication: Dilaudid 16 MG per mL infusion at 5.904 mg/day Bupivacaine 12 MG per mL infusion at 4.428 MG per day Baclofen 163 g per mL infusion at 60.15 g per day Pump Volume: 40 ml [place] Volume: 9.1 ml PTM: Disabled At this time, the area of the intrathecal pump was exposed, prepped with ChloraPrep x2 , and draped in the usual sterile fashion. After which, the [employer] template was used to identify the area of the skin overlying the refill port. After which, a 22-gauge Bhagat needle attached to an extension tubing, which was clamped, attached to a syringe and inserted through the skin into the refill port. At that point, 12 mL of clear fluid was aspirated. The tubing was reclamped. This was discarded. A new medication was then identified from pharmacy, . This was then attached to a filter, which was primed and subsequently injected into the pump in increments with intermittent aspiration to ensure placement into the intrathecal pump. At this point, the pump was reprogrammed. The dose was adjusted by none. Type: SynchroMed Type II B Medication: Dilaudid 16 MG per mL infusion at 5.904 mg/day Bupivacaine 12 MG per mL infusion at 4.428 MG per day Baclofen 163 g per mL infusion at 60.15 g per day Pump Volume: 40 ml [place] Volume: 40 ml Lo [place] Alarm Date: 12 weeks PTM: Disabled The patient tolerated the procedure well and was sent home from the discharge area once meeting discharge criteria. Plan: The patient will follow up for further management and pump refills. Medications given : Naloxone 4 mg intranasal as needed for respiratory depression and dispense #2
== END ==
LOC: ORPAIN 12:26
DX: M96.1 Postlaminectomy syndrome, not elsewhere classified (principal); G89.29 Other chronic pain; M19.90 Unspecified osteoarthritis, unspecified site; E78.00 Pure hypercholesterolemia, unspecified; Z88.0 Allergy status to penicillin; Z88.5 Allergy status to narcotic agent
CPT/HCPCS: 62370; 80307; G0482; J1170; J0475

== ENCOUNTER 2021-12-10 08:42 | Day surgery (SDC) | payer MEDICARE, OTHER ==
[2021-12-10] MEDS ORDERED: LACTATED RINGERS 1,000 ML IV ONE (08:53)
[2021-12-10] MEDS ORDERED: LACTATED RINGERS 1,000 ML IV SCH (08:57)
[2021-12-10] MEDS ORDERED: LIDOCAINE 1% (10MG/ML) FOR IV START INTRADERMA PRN (08:57)
[2021-12-10 09:07] VITALS: RESP 18; TEMP 96.8
[2021-12-10] MEDS ORDERED: MIDAZOLAM 2 MG/2 ML VIAL ONE (09:35)
[2021-12-10] MEDS ORDERED: methylPREDNISolone ACETATE 40 MG/ML 1 ML VIAL ONE (09:35)
[2021-12-10] MEDS ORDERED: ROPIVACAINE 5 MG/ML 20 ML AMPULE ONE (09:35)
[2021-12-10] MEDS ORDERED: fentaNYL (PF) 50 MCG/ML 2 ML AMP ONE (09:35)
--- NOTE | 2021-12-10 10:09 | P.PCN ---
Date of Procedure: 12/10/21 Procedure(s) Performed: PREOPERATIVE DIAGNOSIS: 1-Lumbar Spondylosis with Facet Arthropathy without myelopathy. 2- Lumber degenerative disc disease. POSTOPERATIVE DIAGNOSIS: 1- Lumbar Spondylosis with Facet Arthropathy without myelopathy. 2- Lumber degenerative disc disease. PROCEDURES : Bilateral Radiofrequency thermocoagulation, L3 , L4 , and L5 medial branch, with fluoroscopic guidance (fluoroscopy images available in the radiology department) ( to denervate the facet joint at bilateral L4-5 ,and L5-S1 levels ). ANESTHESIA: Monitored anesthesia care as per anesthesia department . EBL: Minimal PROCEDURE INDICATION: The patient with low back pain secondary to lumbar facet arthropathy who had more than 50% relief of her pain with previous diagnostic lumbar medial branch block with bupivacaine. PROCEDURE DESCRIPTION / TECHNIQUE: The patient was seen and identified in the preoperative area. Risks, benefits, complications, including but not limited to risk of infection ,bleeding , allergic reactions to the medications and no complete pain releife , and alternatives were discussed with the patient, the patient agreed to proceed with the procedure and signed the consent. IV was started. Vital signs remained stable throughout the procedure. Patient was taken to the OR and time out was completed. The patient was placed in the prone position on the procedure table. The lumber area was prepped and draped in the usual sterile fashion. . Vital signs were closely monitored during the procedure .IV sedation was used during the procedure to decrease patients anxiety. Using AP and then oblique fluoroscopy, the ``eye of the Jarad dog co rresponding to the connection between the superior and transverse articular processes of right L3, L4, and L5 were identified, marked, and localized with 1% lidocaine. Subsequently, a [id number] radiofrequency cannula with a 10- mm active tip was advanced guided by fluoroscopy to each of the``eyes of the Jarad dog at right L3, L4, and L5. Each site then underwent sensory testing at 50 Hz and 0 to 1 volt and motor testing at 2.5 Hz and 0 to 3 volt with local stimulation, but no radicular symptoms down the legs. Thereafter each sites underwent radiofrequency thermocoagulation at 80 degrees celsius for 90 seconds after injecting 0.5 ml of PF Ropivacaine 1ml, then after the thermocoagulation done , 1 ml of the block solution containing Depo-Medrol 20 mg and 3 ml of Ropivacaine 0.5% was injected at the right L3 , L4 , and L5 , levels after negative aspiration of CSF and blood and with no paresthesias. Cannulas were retracted while injecting lidocaine 1% until the needle is out. The same procedure was repeated at the level of Left L3, L4, and L5 levels. At the end of the procedure, the skin was cleansed and bandages were applied. COMPLICATIONS: No acute complications. DISPOSITION / PLANS: The patient was placed in a supine position and transferred to the recovery area in a stable condition for observation and was discharged from the recovery room after meeting discharge criteria. Home discharge instructions given to the patient by the staff. The patient was reexamined prior to discharge. The patient will schedule a follow up in the clinic in 2-4 weeks.
[2021-12-10] MEDS ORDERED: IV FLUID CONTINUATION 500 ML IV ONE (10:12)
[2021-12-10 10:32] VITALS: BP 114/77; PULSE 79
--- NOTE | 2021-12-10 13:57 | FL ---
Fluoroscopy HISTORY: Pain 16 seconds fluoroscopy time supplied to the referring clinician. 6 intraoperative C-arm images docum ent the procedure. See dictated report from anesthesia.
== END 2021-12-10 10:47 | disposition home or self-care (01) ==
LOC: ORPAIN 08:42
PROVIDERS: ATTEND Specialist
DX: M51.36 Other intervertebral disc degeneration, lumbar region (principal); M47.816 Spondylosis without myelopathy or radiculopathy, lumbar region; E78.5 Hyperlipidemia, unspecified; F41.9 Anxiety disorder, unspecified; E24.9 Cushing's syndrome, unspecified; F32.A Depression, unspecified; G62.9 Polyneuropathy, unspecified; K21.9 Gastro-esophageal reflux disease without esophagitis; Z88.0 Allergy status to penicillin; Z79.899 Other long term (current) drug therapy; Z88.6 Allergy status to analgesic agent; Z88.8 Allergy status to other drugs, medicaments and biological substances
CPT/HCPCS: 81025; 64635; 64636 ×2; J2250; J1030; J3010; J2795

== ENCOUNTER 2022-02-22 11:48 | Day surgery (SDC) | payer MEDICARE, OTHER ==
[2022-02-18 12:27] VITALS: BMI 25.7
[2022-02-22 12:26] VITALS: BP 151/99; PULSE 90; RESP 18; TEMP 97.5
[2022-02-22] MEDS ORDERED: LACTATED RINGERS 1,000 ML IV SCH (13:15)
--- NOTE | 2022-02-22 13:32 | P.PCN ---
Date of Procedure: 02/22/22 Description of Procedure: Preoperative diagnosis: Lumbar post laminectomy, and chronic pain syndrome Status post intrathecal pump for chronic pain management Postoperative diagnosis: Lumbar post laminectomy, and chronic pain syndrome Status post intrathecal pump for chronic pain management PROCEDURES: 1. Intrathecal pump analysis. 2. Intrathecal pump reprogramming. 3. Intrathecal pump refill ANESTHESIA: None. EBL: None. COMPLICATIONS: None. IV FLUIDS: None. PROCEDURE INDICATION: Patient is well known to pain clinic for management of intrathecal pump for chronic pain management. Patient denied any side effects with the medications. Rated his pain is 4-5 out of 10 in severity. On examination lower extremity muscle strength normal, no clonus. Patient came here for pump refill. PROCEDURE DESCRIPTION: The patient was seen and identified in the preoperative area. Risks, benefits, complications, and alternatives were discussed with the patient. The patient agreed to proceed with the procedure. Intrathecal pump was analyzed and displayed the following information: Type: SynchroMed Type II B Medication: Hydromorphone 16mg /ml infusion at 5.904 mg/day Bupivacaine 12 MG per mL infusion at 4.428 MG per day Baclofen 163 g per mL infusion at the rate of extreme 60.15 g per day Pump Volume: 40 ml [place] Volume: 9.1 ml PTM: Disabled At this time, the area of the intrathecal pump was exposed, prepped with ChloraPrep x2 , and draped in the usual sterile fashion. After which, the [employer] template was used to identify the area of the skin overlying the refill port. After which, a 22-gauge Bhagat needle attached to an extension tubing, which was clamped, attached to a syringe and inserted through the skin into the refill port. At that point, 11 mL of clear fluid was aspirated. The tubing was reclamped. This was discarded. A new medication was then identified from pharmacy, . This was then attached to a filter, which was primed and subsequently injected into the pump in increments with intermittent aspiration to ensure placement into the intrathecal pump. At this point, the pump was reprogrammed. The dose was adjusted : none - patient refuses to go down on the medication as the current pain pump medical regimen helping her in controlling overall pain. Type: SynchroMed Type II B Medication: Hydromorphone 16mg /ml infusion at 5.904 mg/day Bupivacaine 12 MG per mL infusion at 4.428 MG per day Baclofen 163 g per mL infusion at the rate of extreme 60.15 g per day Pump Volume: 40 ml [place] Volume: 40 ml Lo [place] Alarm Date: 12 weeks PTM: Disabled The patient tolerated the procedure well and was sent home from the discharge area once meeting discharge criteria. Plan: The patient will follow up for further management and pump refills. Medications given : none .
== END 2022-02-22 12:40 | disposition home or self-care (01) ==
LOC: ORPAIN 11:48
DX: Z45.1 Encounter for adjustment and management of infusion pump (principal); G89.4 Chronic pain syndrome; M96.1 Postlaminectomy syndrome, not elsewhere classified; G62.9 Polyneuropathy, unspecified; Z79.891 Long term (current) use of opiate analgesic; Z79.899 Other long term (current) drug therapy; Z88.6 Allergy status to analgesic agent; Z88.5 Allergy status to narcotic agent; Z88.0 Allergy status to penicillin; Z88.8 Allergy status to other drugs, medicaments and biological substances; Z98.890 Other specified postprocedural states
CPT/HCPCS: 80307; 62370; G0482; G0463; 99212

== ENCOUNTER → 2022-08-09 | Day surgery (SDC) | payer MEDICARE, OTHER ==
[~2022-08-09] MED LIST changes: -LACTATED RINGERS 1,000 ML IV SCH
[2022-08-09 12:34] VITALS: BP 158/101; PULSE 72; RESP 16; TEMP 98
--- NOTE | 2022-08-09 12:50 | P.PCN ---
Date of Procedure: 08/09/22 Procedure(s) Performed: Preoperative diagnosis: Lumbar post laminectomy, and chronic pain syndrome Status post intrathecal pump for chronic pain management Postoperative diagnosis: Lumbar post laminectomy, and chronic pain syndrome Status post intrathecal pump for chronic pain management PROCEDURES: 1. Intrathecal pump analysis. 2. Intrathecal pump reprogramming. 3. Intrathecal pump refill ANESTHESIA: None. EBL: None. COMPLICATIONS: None. IV FLUIDS: None. PROCEDURE INDICATION: Patient is well known to pain clinic for management of intrathecal pump for chronic pain management. Patient denied any side effects with the medications. Rated his pain is 4-5 out of 10 in severity. On examination lower extremity muscle strength normal, no clonus. Patient came here for pump refill. PROCEDURE DESCRIPTION: The patient was seen and identified in the preoperative area. Risks, benefits, complications, and alternatives were discussed with the patient. The patient agreed to proceed with the procedure. Intrathecal pump was analyzed and displayed the following information: Type: SynchroMed Type II B Medication: Hydromorphone 16mg /ml infusion at 5.904 mg/day Bupivacaine 12 MG per mL infusion at 4.428 MG per day Baclofen 163 g per mL infusion at the rate of extreme 60.15 g per day Pump Volume: 40 ml [place] Volume: 9.1 ml PTM: Disabled At this time, the area of the intrathecal pump was exposed, prepped with ChloraPrep x2 , and draped in the usual sterile fashion. After which, the [employer] template was used to identify the area of the skin overlying the refill port. After which, a 22-gauge Bhagat needle attached to an extension tubing, which was clamped, attached to a syringe and inserted through the skin into the refill port. At that point, 11 mL of clear fluid was aspirated. The tubing was reclamped. This was discarded. A new medication was then identified from pharmacy, . This was then attached to a filter, which was primed and subsequently injected into the pump in increments with intermittent aspiration to ensure placement into the intrathecal pump. At this point, the pump was reprogrammed. The dose was adjusted : none - patient refuses to go down on the medication as the current pain pump medical regimen helping her in controlling overall pain. Type: SynchroMed Type II B Medication: Hydromorphone 16mg /ml infusion at 5.904 mg/day Bupivacaine 12 MG per mL infusion at 4.428 MG per day Baclofen 163 g per mL infusion at the rate of extreme 60.15 g per day Pump Volume: 40 ml [place] Volume: 40 ml Lo [place] Alarm Date: 12 weeks PTM: Disabled The patient tolerated the procedure well and was sent home from the discharge area once meeting discharge criteria. Plan: The patient will follow up for further management and pump refills. Medications given : none . Patient was complaining of increased pain in the low back area, patient had RFA of the medial branch lumbar area done in November 2021 L4 5 and L5-S1 bilaterally Examination today showed that patient had positive facet loading test lumbar area bilaterally, in view that the patient had good relief after RFA of the medial branch, she will be good candidate to have repeat RFA of the medial branch lumbar area at L4 5 and L5-S1 bilaterally
== END ==
LOC: ORPAIN 12:09
PROVIDERS: ATTEND Specialist
DX: G89.4 Chronic pain syndrome (principal); M96.1 Postlaminectomy syndrome, not elsewhere classified
CPT/HCPCS: 62370; J1170; J0475

== ENCOUNTER 2022-09-09 07:39 | Day surgery (SDC) | payer MEDICARE, OTHER ==
[2022-09-09 08:01] VITALS: RESP 16; TEMP 97.3
[2022-09-09] MEDS ORDERED: LACTATED RINGERS 1,000 ML IV ONE (08:06)
[2022-09-09] MEDS ORDERED: LIDOCAINE 1% (10MG/ML) FOR IV START INTRADERMA ONE (08:07)
[2022-09-09] MEDS ORDERED: methylPREDNISolone ACETATE 40 MG/ML 1 ML VIAL ONE (08:10)
[2022-09-09] MEDS ORDERED: fentaNYL (PF) 50 MCG/ML 2 ML AMP ONE (08:10)
[2022-09-09] MEDS ORDERED: ROPIVACAINE 5 MG/ML 20 ML AMPULE ONE (08:10)
[2022-09-09] MEDS ORDERED: MIDAZOLAM 2 MG/2 ML VIAL ONE (08:10)
--- NOTE | 2022-09-09 08:34 | P.PCN ---
Date of Procedure: 09/09/22 Procedure(s) Performed: PREOPERATIVE DIAGNOSIS: 1-Lumbar Spondylosis with Facet Arthropathy without myelopathy. 2- Lumber degenerative disc disease. POSTOPERATIVE DIAGNOSIS: 1- Lumbar Spondylosis with Facet Arthropathy without myelopathy. 2- Lumber degenerative disc disease. PROCEDURES : Bilateral Radiofrequency thermocoagulation, L3 , L4 , and L5 medial branch, with fluoroscopic guidance (fluoroscopy images available in the radiology department) ( to denervate the facet joint at bilateral L4-5 ,and L5- S1 levels ). ANESTHESIA: Monitored anesthesia care as per anesthesia department.. EBL: Minimal PROCEDURE INDICATION: The patient with low back pain secondary to lumbar facet arthropathy who had more than 50% relief of her pain with previous diagnostic lumbar medial branch block with bupivacaine. PROCEDURE DESCRIPTION / TECHNIQUE: The patient was seen and identified in the preoperative area. Risks, benefits, complications, including but not limited to risk of infection ,bleeding , allergic reactions to the medications and no complete pain releife , and alternatives were discussed with the patient, the patient agreed to proceed with the procedure and signed the consent. IV was started. Vital signs remained stable throughout the procedure. Patient was taken to the OR and time out was completed. The patient was placed in the prone position on the procedure table. The lumber area was prepped and draped in the usual sterile fashion. . Vital signs were closely monitored during the procedure .IV sedation was used during the procedure to decrease patients anxiety. Using AP and then oblique fluoroscopy, the ``eye of the Jarad dog corresponding to the connection between the superior and transverse articular processes of right L3, L4, and L5 were identified, marked, and localized with 1% lidocaine. Subsequently, a 18 -po radiofrequency cannula with a 10- mm active tip was advanced guided by fluoroscopy to each of the``eyes of the Jarad dog at right L3, L4, and L5. Each site then underwent sensory testing at 50 Hz and 0 to 1 volt and motor testing at 2.5 Hz and 0 to 3 volt with local stimulation, but no radicular symptoms down the legs. Thereafter each sites underwent radiofrequency thermocoagulation at 80 degrees celsius for 90 seconds after injecting 0.5 ml of PF Ropivacaine 1ml, then after the thermocoagulation done , 1 ml of the block solution containing Depo-Medrol 20 mg and 3 ml of Ropivacaine 0.5% was injected at the right L3 , L4 , and L5 , levels after negative aspiration of CSF and blood and with no paresthesias. Cannulas were retracted while injecting lidocaine 1% until the needle is out. The same procedure was repeated at the level of Left L3, L4, and L5 levels. At the end of the procedure, the skin was cleansed and bandages were applied. COMPLICATIONS: No acute complications. DISPOSITION / PLANS: The patient was placed in a supine position and transferred to the recovery area in a stable condition for observation and was discharged from the recovery room after meeting discharge criteria. Home discharge instructions given to the patient by the staff. The patient was reexamined prior to discharge. The patient will schedule a follow up in the [facility] in 2-4 weeks.
[2022-09-09] MEDS ORDERED: IV FLUID CONTINUATION 1,000 ML IV ONE (08:36)
--- NOTE | 2022-09-09 08:39 | FL ---
Cassie Pryor EXAMINATION TYPE: FL guided pain mgmt statistic DATE OF EXAM: 09/09/2022 CLINICAL HISTORY: Low back pain. TECHNIQUE: Fluoroscopy. COMPARISON: None. FINDINGS: Fluoroscopic guidance was provided during pain relief procedure performed by Dr. Dinero . A total of 17 seconds of fluoroscopic time was utilized during the procedure and 6 spot images are acquired. Images acquired shows needle localization at several levels in the lumbar spine. Postsurg ical changes lumbosacral junction is noted. Total DAP = 0.33002 mGy x m2. IMPRESSION: As Above.
[2022-09-09] MEDS ORDERED: LACTATED RINGERS 1,000 ML IV SCH (08:46)
[2022-09-09] MEDS ORDERED: LIDOCAINE 1% (10MG/ML) FOR IV START INTRADERMA PRN (08:46)
[2022-09-09 08:55] VITALS: BP 129/77; PULSE 94
== END 2022-09-09 09:07 | disposition home or self-care (01) ==
LOC: ORPAIN 07:39
PROVIDERS: ATTEND Specialist
DX: M51.36 Other intervertebral disc degeneration, lumbar region (principal); M47.816 Spondylosis without myelopathy or radiculopathy, lumbar region; Z98.890 Other specified postprocedural states
CPT/HCPCS: 64635; 64636 ×2; J2250; J1030; J3010; J2795

== ENCOUNTER → 2022-11-01 | Day surgery (SDC) | payer MEDICARE, OTHER ==
[~2022-11-01] MED LIST changes: -BUPIVACAINE 8.1-40 MG/ML, 31-60 ML SYRINGE MC ONE; -HYDROMORPHONE FOR ANAZAO - PER 4 MG MISCELLANE ONE; +LACTATED RINGERS 1,000 ML IV SCH; -[UNRECOGNIZED DRUG - OTHER] MISCELLANE ONE
[2022-11-01 12:20] VITALS: BP 126/94; PULSE 89; RESP 16; TEMP 97
--- NOTE | 2022-11-01 14:40 | P.PCN ---
Date of Procedure: 11/01/22 Description of Procedure: Preoperative diagnosis: Lumbar post laminectomy, and chronic pain syndrome Status post intrathecal pump for chronic pain management Postoperative diagnosis: Lumbar post laminectomy, and chronic pain syndrome Status post intrathecal pump for chronic pain management PROCEDURES: 1. Intrathecal pump analysis. 2. Intrathecal pump reprogramming. 3. Intrathecal pump refill ANESTHESIA: None. EBL: None. COMPLICATIONS: None. IV FLUIDS: None. PROCEDURE INDICATION: Patient is well known to pain clinic for management of intrathecal pump for chronic pain management. Patient denied any side effects with the medications. Rated his pain is 4 -5out of 10 in severity. On examination lower extremity muscle strength normal, no clonus. Patient came here for pump refill. PROCEDURE DESCRIPTION: The patient was seen and identified in the preoperative area. Risks, benefits, complications, and alternatives were discussed with the patient. The patient agreed to proceed with the procedure. Intrathecal pump was analyzed and displayed the following information: Type: SynchroMed Type II B Medication: Hydromorphone 16 MG per mL infusion at 5.904 MG per day Bupivacaine 12 MG per mL infusion at 4.428 MG per day Baclofen 163 g per mL infusion at the rate of 60.15 g per day Pump Volume: 40 ml [place] Volume: 9.1 ml PTM: Disabled At this time, the area of the intrathecal pump was exposed, prepped with ChloraPrep x2 , and draped in the usual sterile fashion. After which, the [employer] template was used to identify the area of the skin overlying the refill port. After which, a 22-gauge Bhagat needle attached to an extension tubing, which was clamped, attached to a syringe and inserted through the skin into the refill port. At that point,10 mL of clear fluid was aspirated. The tubing was reclamped. This was discarded. A new medication was then identified from pharmacy, . This was then attached to a filter, which was primed and subsequently injected into the pump in increments with intermittent aspiration to ensure placement into the intrathecal pump. At this point, the pump was reprogrammed. The dose was adjusted by 0, but discussed with the patient to decrease 10%, but patient refused as it's helping to control her pain at this time. But she wants to consider in future. Type: SynchroMed Type II B Medication: Hydromorphone 16 MG per mL infusion at 5.904 MG per day Bupivacaine 12 MG per mL infusion at 4.428 MG per day Baclofen 163 g per mL infusion at the rate of 60.15 g per day Pump Volume: 40 ml [place] Volume: 40 ml Lo [place] Alarm Date: 12 weeks PTM: Disabled The patient tolerated the procedure well and was sent home from the discharge area once meeting discharge criteria. Plan: The patient will follow up for further management and pump refills. Medications given : None
== END ==
LOC: ORPAIN 12:05
DX: G89.4 Chronic pain syndrome (principal); M96.1 Postlaminectomy syndrome, not elsewhere classified; E78.5 Hyperlipidemia, unspecified; K21.9 Gastro-esophageal reflux disease without esophagitis; Z98.890 Other specified postprocedural states; Z79.899 Other long term (current) drug therapy; Z88.0 Allergy status to penicillin
CPT/HCPCS: 62370

== ENCOUNTER → 2023-01-24 | Day surgery (SDC) | payer MEDICARE, OTHER ==
[~2023-01-24] MED LIST changes: +BUPIVACAINE 8.1-40 MG/ML, 31-60 ML SYRINGE MC ONE; +HYDROMORPHONE FOR ANAZAO - PER 4 MG MISCELLANE ONE; +[UNRECOGNIZED DRUG - OTHER] MISCELLANE ONE
[2023-01-24 12:20] VITALS: BP 123/88; PULSE 89; RESP 14; TEMP 97.1
--- NOTE | 2023-01-24 13:06 | P.PCN ---
Date of Procedure: 01/24/23 Description of Procedure: OPERATION: Intrathecal pain pump analysis, programming and reprogramming, and intrathecal pain pump refill. PREOPERATIVE DIAGNOSES: 1. near empty intrathecal pain pump time for refill. 2. opioid tolerance 3. failed back surgery syndrome lumbar area POSTOPERATIVE DIAGNOSES: Same as preoperative diagnosis. ANESTHESIA: None. CONDITION: Stable. Description of the procedure; Intrathecal pain pump analysed ,it showed patient currently had reservoir volume9 mL. The patient is receiving medication Dilaudid 16 mg/ ml, and bupivacaine concentration 12 mg/ml. Patient receiving daily dose of 60.15 bupivacaine mg/day. Pain is well controlled , patient using medication for breakthrough pain orally . The location of the pump ( Right Buttuck ) Prepped with chlorhexidine x3 , then using 22-gauge needle Locally kit advanced through the pump port, Total of 11 ml removed from the pump, expected volume 9 ml , the pump refilled with the new medication total volume 40 ml . The concentration of hydromorphone 16 mg /ml , and the bupivacaine concentration 12 mg/ml, [id number] The patient will continue to see the daily dose dilaudid5.904 [ ] mg/day and bupivacaine [4.428 ] mg/day and patient will follow up with the pain clinic in 3 months. Prescription refill for was given to the patient
== END ==
LOC: ORPAIN 11:56
PROVIDERS: ATTEND Pain Medicine Interventional Pain Medicine
DX: Z51.81 Encounter for therapeutic drug level monitoring (principal); M96.1 Postlaminectomy syndrome, not elsewhere classified; Z88.0 Allergy status to penicillin; Z88.6 Allergy status to analgesic agent; Z88.5 Allergy status to narcotic agent
CPT/HCPCS: 62370; J1170; J0475

== ENCOUNTER → 2023-04-20 | Day surgery (SDC) | payer MEDICARE, OTHER ==
[2023-04-20 12:32] VITALS: BP 123/79; PULSE 89; RESP 14; TEMP 97
--- NOTE | 2023-04-20 12:41 | P.PCN ---
Date of Procedure: 04/20/23 Procedure(s) Performed: Preoperative diagnosis: Lumbar post laminectomy, and chronic pain syndrome Status post intrathecal pump for chronic pain management Postoperative diagnosis: Lumbar post laminectomy, and chronic pain syndrome Status post intrathecal pump for chronic pain management PROCEDURES: 1. Intrathecal pump analysis. 2. Intrathecal pump reprogramming. 3. Intrathecal pump refill ANESTHESIA: None COMPLICATIONS: None PROCEDURE INDICATION: Patient is well known to pain clinic for management of intrathecal pump for chronic pain management. Patient denied any side effects with the medications. Rated his pain is 4-5 out of 10 in severity. On examination lower extremity muscle strength normal, no clonus. Patient came here for pump refill. PROCEDURE DESCRIPTION: The patient was seen and identified in the preoperative area. Risks, benefits, complications, and alternatives were discussed with the patient. The patient agreed to proceed with the procedure. Intrathecal pump was analyzed and displayed the following information: Type: SynchroMed Type II B Medication: Hydromorphone 16mg /ml infusion at 5.904 mg/day Bupivacaine 12 MG per mL infusion at 4.428 MG per day Baclofen 163 g per mL infusion at the rate of extreme 60.15 g per day Pump Volume: 40 ml [place] Volume: 8.3 ml PTM: Disabled At this time, the area of the intrathecal pump was exposed, prepped with ChloraPrep x2 , and draped in the usual sterile fashion. After which, the [employer] template was used to identify the area of the skin overlying the refill port. After which, a 22-gauge Bhagat needle attached to an extension tubing, which was clamped, attached to a syringe and inserted through the skin into the refill port. At that point, 10.5 mL of clear fluid was aspirated. The tubing was reclamped. This was discarded. A new medication was then identified from pharmacy, . This was then attached to a filter, which was primed and subsequently injected into the pump in increments with intermittent aspiration to ensure placement into the intrathecal pump. At this point, the pump was reprogrammed. The dose was adjusted : none - patient refuses to go down on the medication as the current pain pump medical regimen helping her in controlling overall pain. Type: SynchroMed Type II B Medication: Hydromorphone 16mg /ml infusion at 5.904 mg/day Bupivacaine 12 MG per mL infusion at 4.428 MG per day Baclofen 163 g per mL infusion at the rate of extreme 60.15 g per day Pump Volume: 40 ml [place] Volume: 40 ml Lo [place] Alarm Date: 12 weeks PTM: Disabled The patient tolerated the procedure well and was sent home from the discharge area once meeting discharge criteria. Plan: The patient will follow up for further management and pump refills. Medications given : none . Urine drug screen was ordered today. Narcotic agreement discussed with the patient and patient signed a new opioid contract
== END ==
LOC: ORPAIN 11:54
PROVIDERS: ATTEND Specialist
DX: Z51.81 Encounter for therapeutic drug level monitoring (principal); G89.4 Chronic pain syndrome; Z88.0 Allergy status to penicillin; Z88.8 Allergy status to other drugs, medicaments and biological substances; Z88.6 Allergy status to analgesic agent
CPT/HCPCS: 80307; 62370; G0463

== ENCOUNTER → 2023-04-24 | Outpatient (CLI) | payer MEDICARE, OTHER ==
[2023-04-24 13:34] VITALS: BP 127/90; PULSE 80; RESP 16; TEMP 97.1
--- NOTE | 2023-04-24 14:39 | P.PAINPG ---
PQRS Measure Charge Sheet Comment: A 52 yr old female with a history of severe and chronic LBP secondary to lumbar DDD and spondylosis with facet arthropathy without myelopathy, L Sacroiliitis presents today for evaluation. Pain level is provoked at 6 /10 in intensity, constant, predominantly axial, localized in the lumbar spine, stabbing/ sharp in character without shooting pain. Pain is provoked by standing/ walking for periods of 15 min or more. Pain is alleviated with use of a pain pump w Loratab, injections, medications, PT in 2021, physician guided exercises daily since 2021, heat, repositioning and rest. Oswestry axial pain score at 22. Interventional pain procedures completed include BL RFA L3-L5 x3 (Aug 2022), L SI x1, Intrathecal Pump Implant Patient is currently on Ibu, Neurontin Patient denies any side effects of the medication(s), denies excessive drowsiness or sleepiness, denies suicidal ideation and reports that the current pain medication is helping to control the pain and improve activities of daily living. Patient denies any motor or sensory deficits. Patient denies any fever or night sweats, denies any change in the bowel movements or urination. Physical Examination: -Constitutional: Cooperative. Not in acute distress . - Neurologic: Cranial nerve II to XII intact. No focal neurological deficits. - Psychatric: Alert & oriented x 3. Matching mood & appropriate affect. Judgment and insight intact. - Musculoskeletal: Cervical spine: Muscle bulk/ tone/ strength in the bilateral upper extremities normal Vertebral body tenderness to palpation over [place] test positive Distraction test positive Facet loading test positive TTP Thoracic spine Muscle bulk / tone/ strength in the bilateral paraspinal muscles normal Vertebral body tender to palpation over Facet loading test positive TTP Lumbar spine: Motor bulk/ tone/ strength lower extremities , thigh and legs : 5/5 Deep tendon reflexes : Normal Knee Jerk. Normal Ankle Jerk . Vertebral body tenderness to palpation over Gonzales Test positive Lumbar Facet Loading Test positive BL L1-L2, L2-L3 Straight Leg Raise: positive at 30 degrees right side/ left side Gaenslen's Test positive Sacral spine : Severe tenderness over the Sacroiliac joint: right side / left side Range of motion: Flexion of the lumbar spine <60 degrees Range of motion: Extension of the lumbar spine <20 degrees Gaenslen's Test positive right side / left side Wyatt test: positive right side / left side Thigh Thrust Test positive right side / left side Sacral Thrust Test positive right side / left side Imaging: MRI noncontrast of the lumbar spine from August 2022 reviewed Assessment and plan: Chronic LBP secondary to lumbar DDD, spondylosis with facet arthropathy without myelopathy, L Sacroiliitis Recommendation of BL MBB L1-L2, L2-L3 #1. May need a series of injections for optimal pain relief. Risks, benefits of procedure discussed and pt ve rbalized understanding. Protocol for discontinuation/ continuation of medications surrounding procedure discussed. All questions answered. I have spent less than 30 minutes on patient care today. Dr Dinero was available by phone for the evaluation of this patient. The time was used to review the medical records including relevant urine studies and Prescription history (MAPs), review of the available imaging, evaluation and examination of the patient, coordination of care with the medical staff and if applicable referring physicians, as well as creation of the medical record PQRS Narrative: Smoking Status Former smoker Narcotic Agreement Date Signed 11/20/19 Hx Alcohol Use (MH) No Home Medications: Ambulatory Orders Esomeprazole Magnesium [NexIUM] 40 mg PO QAM 08/12/13 HYDROcodone/APAP 10-325MG [Stopover 10-325] 1 tab PO TID PRN 08/12/13 Lidocaine 5% Patch [Lidoderm 5% Patch] 1 - 3 patch TOPICAL DAILY 08/12/13 Multivitamin with Iron [Daily Multivitamin with Iron] 1 tab PO QAM 08/12/13 Cholecalciferol [Vitamin D3] 5,000 unit PO QAM 06/17/15 DULoxetine HCL [Cymbalta] 90 mg PO HS 03/09/17 Ascorbic Acid [Vitamin C] 1,000 mg PO QAM 08/22/17 Magnesium Oxide [[place]] 1,000 mg PO QAM 08/22/17 Hydromorphone,Bupivacain,Baclo 1 dose INTRATHECA CONTINUOUS MDD pain pump 02/20/18 Temazepam [Restoril] 15 mg PO HS PRN 02/20/18 Gabapentin [Neurontin] 200 mg PO HS 03/02/20 Gabapentin [Neurontin] 300 mg PO QAM 03/02/20 Rosuvastatin [Crestor] 10 mg PO HS 09/07/22 Controlled Substance Measures - Controlled Substance Measures Is patient prescribed a controlled substance at discharge?: No
== END ==
LOC: PNWHC3 12:01
PROVIDERS: ATTEND Specialist
DX: M46.1 Sacroiliitis, not elsewhere classified (principal); M51.36 Other intervertebral disc degeneration, lumbar region; M47.816 Spondylosis without myelopathy or radiculopathy, lumbar region; G89.29 Other chronic pain; Z87.891 Personal history of nicotine dependence; Z88.0 Allergy status to penicillin; Z88.8 Allergy status to other drugs, medicaments and biological substances; Z88.5 Allergy status to narcotic agent; Z91.048 Other nonmedicinal substance allergy status
CPT/HCPCS: 99211

== ENCOUNTER 2023-05-23 12:13 | Day surgery (SDC) | payer MEDICARE, OTHER ==
[2023-05-18 10:14] VITALS: BMI 25.7
[2023-05-23] MEDS: LACTATED RINGERS 1,000 ML IV SCH (13:24)
[2023-05-23 13:33] VITALS: RESP 16; TEMP 97.6
[2023-05-23] MEDS ORDERED: MIDAZOLAM 2 MG/2 ML VIAL ONE (14:06)
[2023-05-23] MEDS ORDERED: fentaNYL (PF) 50 MCG/ML 2 ML AMP ONE (14:06)
[2023-05-23] MEDS ORDERED: ROPIVACAINE 5MG/ML 20ML VIAL ONE (14:06)
[2023-05-23] MEDS: IV FLUID CONTINUATION 1,000 ML IV ONE (14:36)
--- NOTE | 2023-05-23 14:41 | P.PCN ---
Description of Procedure: Preprocedure diagnosis. 1. Lumbar spondylosis with facet joint arthropathy without myelopathy. 2. Lumbar degenerative disc disease. Postprocedure diagnosis. As above. Procedure done. Bilateral diagnostic block with local anesthetics at L2,L3,[id number] branch to target the facet joint L3-4 and L4-5 with fluoroscopic guidance (fluoroscopy images are available in the radiology department) . Anesthesia. As per anesthesia department/ Moderate sedation with intravenous Versed 2 mg and fentanyl and local infiltration with local anesthetics. In OR, continuous pulse ox, EKG, blood pressure and verbal communication was maintained. Blood loss. Minimal. Indication. The patient has low back pain secondary to lumbar facet joint arthropathy. Discussed the procedure and alternative and complications which includes infection, bleeding, nerve damage, paralysis ,aggravation of pain. Patient understands and all questions were answered. Patient iunderstands that if any pain relief occurs it will last for a few hours to a few days maximum. Procedure description. After getting consent patient was taken in the OR in prone position. Back prepped with chlorhexidine and draped in sterile fashion. With slight oblique fluoroscope, after injecting 5 mL of plain 1% lidocaine subcutaneously, a 22-gauge spinal needle was introduced under tunnel vision of the fluoroscope at the junction of the superior articular process with RIGHT L5 transverse process, junction of the superior articular process with the RIGHT L4 transverse process junction of superior articular process with L3 transverse process. Negative CSF, negative blood, negative paresthesia. After needle position confirmation by AP and crosstable lateral view, after negative aspiration, half milliliters of solution were injected at each point. Total 1- 1/2 mL of solution was injected on the right side which consists of 0.5% ropivacaine. In exactly same way, LEFT sided injections were done at the following 3 points. Junction of the superior articular process with left L3 transverse process, junction of the superior articular process with the left L5 transverse process, junction of the superior articular process with left L4 transverse process using 0.5 mL of solution at each point. Total 1-1/2 mL of solution was injected on the left side which consists of 0.5% ropivacaine . Spinal needles were taken out and bandages were applied. Disposition. Patient tolerated the procedure well. No complication. Discharged home in stable condition
--- NOTE | 2023-05-23 15:17 | FL ---
EXAMINATION TYPE: FL guided pain mgmt statistic Intraoperative/procedural fluoroscopic services were provided. Total fluoroscopy time is 6.9 seconds with a total of 4 submitted images to PACS. Please se e the operative/procedural note for further details. DAP: [id number] mGym2
[2023-05-23 15:21] VITALS: BP 130/88
[2023-05-23 15:22] VITALS: PULSE 80
== END 2023-05-23 15:14 | disposition home or self-care (01) ==
LOC: ORPAIN 12:13
PROVIDERS: ATTEND Pain Medicine Interventional Pain Medicine
DX: M47.816 Spondylosis without myelopathy or radiculopathy, lumbar region (principal); M51.36 Other intervertebral disc degeneration, lumbar region; Z88.0 Allergy status to penicillin; Z88.5 Allergy status to narcotic agent; Z88.6 Allergy status to analgesic agent; Z88.8 Allergy status to other drugs, medicaments and biological substances
CPT/HCPCS: 81025; 64493; 64494 ×2; J2250; J3010; J2795

== ENCOUNTER → 2023-06-08 | Outpatient (CLI) | payer MEDICARE, OTHER ==
[2023-06-08 13:01] VITALS: BP 121/86; PULSE 91; RESP 16; TEMP 98.1
--- NOTE | 2023-06-08 14:10 | P.PAINPG ---
PQRS Measure Charge Sheet Comment: A 52 yr old female with a history of severe and chronic LBP secondary to lumbar DDD and spondylosis with facet arthropathy without myelopathy, L Sacroiliitis presents today for evaluation s/p BL MBB L3-L4, L4-L5 #1. Pt states she experienced 80% pain relief x 6 hrs s/p procedure. Pain level is provoked at 8 /10 in intensity, constant, predominantly axial, localized in the lumbar spine, stabbing/ sharp in character without shooting pain. Pain is provoked by standing/ walking for periods of 15 min or more. Pain is alleviated with use of a pain pump w Loratab, injections, medications, PT in 2021, physician guided exercises daily since 2021, heat, repositioning and rest. Oswestry axial pain score at 21. UDS from 04/20/23 +Ethyl Glucuronide, +Hydrocodone, +Gabapentin. Interventional pain procedures completed include BL RFA L3-L5 x3 (Aug 2022), L SI x1, Intrathecal Pump Implant, BL MBB L2-L4 x1 Patient is currently on Ibu, Neurontin Patient denies any side effects of the medication(s), denies excessive drowsiness or sleepiness, denies suicidal ideation and reports that the current pain medication is helping to control the pain and improve activities of daily living. Patient denies any motor or sensory deficits. Patient denies any fever or night sweats, denies any change in the bowel movements or urination. Physical Examination: -Constitutional: Cooperative. Not in acute distress . - Neurologic: Cranial nerve II to XII intact. No focal neurological deficits. - Psychatric: Alert & oriented x 3. Matching mood & appropriate affect. Judgment and insight intact. - Musculoskeletal: Cervical spine: Muscle bulk/ tone/ strength in the bilateral upper extremities normal Vertebral body tenderness to palpation over Spurling test positive Distraction test positive Facet loading test positive TTP Thoracic spine Muscle bulk / tone/ strength in the bilateral paraspinal muscles normal Vertebral body tender to palpation over Facet loading test positive TTP Lumbar spine: Motor bulk/ tone/ strength lower extremities , thigh and legs : 5/5 Deep tendon reflexes : Normal Knee Jerk. Normal Ankle Jerk . Vertebral body tenderness to palpation over Gonzales Test positive Lumbar Facet Loading Test positive BL L3-4, L4-5 Straight Leg Raise: positive at 30 degrees right side/ left side Gaenslen's Test positive Sacral spine : Severe tenderness over the Sacroiliac joint: right side / left side Range of motion: Flexion of the lumbar spine <60 degrees Range of motion: Extension of the lumbar spine <20 degrees Gaenslen's Test positive right side / left side Wyatt test: positive right side / left side Thigh Thrust Test positive right side / left side Sacral Thrust Test positive right side / left side Imaging: MRI noncontrast of the lumbar spine from August 2022 reviewed Assessment and plan: Chronic LBP secondary to lumbar DDD, spondylosis with facet arthropathy without myelopathy, L Sacroiliitis Recommendation of BL MBB L3-4, L4-5 #2. May need a series of injections for optimal pain relief. Risks, benefits of procedure discussed and pt verbalized understanding. Protocol for discontinuation/ continuation of medications surrounding procedure discussed. UDS from 04/20/23 +Ethyl Glucuronide, +Hydrocodone, +Gabapentin. UDS from 04/20/23 +Ethyl Glucuronide, +Hydrocodone, +Gabapentin. All questions answered. I have spent less than 30 minutes on patient care today. Dr Dinero was available by phone for the evaluation of this patient. The time was used to review the medical records including relevant urine studies and Prescription history (MAPs), review of the available imaging, evaluation and examination of the patient, coordination of care with the medical staff and if applicable referring physicians, as well as creation of the medical record - Pain Location Bilateral Back Pharmacological Interventions: Epidural PQRS Narrative: Smoking Status Former smoker Narcotic Agreement Date Signed 04/20/23 Hx Alcohol Use (MH) No Home Medications: Ambulatory Orders Esomeprazole Magnesium [NexIUM] 40 mg PO QAM 08/12/13 HYDROcodone/APAP 10-325MG [Coplay 10-325] 1 tab PO TID PRN 08/12/13 Lidocaine 5% Patch [Lidoderm 5% Patch] 1 - 3 patch TOPICAL DAILY 08/12/13 Multivitamin with Iron [Daily Multivitamin with Iron] 1 tab PO QAM 08/12/13 Cholecalciferol [Vitamin D3] 5,000 unit PO QAM 06/17/15 DULoxetine HCL [Cymbalta] 90 mg PO HS 03/09/17 Ascorbic Acid [Vitamin C] 1,000 mg PO QAM 08/22/17 Magnesium Oxide [Valencia] 1,000 mg PO QAM 08/22/17 Hydromorphone,Bupivacain,Baclo 1 dose INTRATHECA CONTINUOUS MDD pain pump 02/20/18 Temazepam [Restoril] 15 mg PO HS PRN 02/20/18 Gabapentin [Neurontin] 200 mg PO HS 03/02/20 Gabapentin [Neurontin] 300 mg PO QAM 03/02/20 Rosuvastatin [Crestor] 10 mg PO HS 09/07/22 Controlled Substance Measures - Controlled Substance Measures Is patient prescribed a controlled substance at discharge?: No
== END ==
LOC: PNWHC3 12:21
PROVIDERS: ATTEND Specialist
DX: M51.36 Other intervertebral disc degeneration, lumbar region (principal); M47.816 Spondylosis without myelopathy or radiculopathy, lumbar region; G89.29 Other chronic pain; M46.1 Sacroiliitis, not elsewhere classified; Z87.891 Personal history of nicotine dependence; Z88.0 Allergy status to penicillin; Z88.8 Allergy status to other drugs, medicaments and biological substances; Z91.048 Other nonmedicinal substance allergy status; Z88.5 Allergy status to narcotic agent
CPT/HCPCS: 99211

== ENCOUNTER → 2023-07-13 | Day surgery (SDC) | payer MEDICARE, OTHER ==
[~2023-07-13] MED LIST changes: -LACTATED RINGERS 1,000 ML IV SCH
[2023-07-13 12:26] VITALS: BP 125/83; PULSE 87; RESP 18; TEMP 97.8
--- NOTE | 2023-07-13 13:17 | P.PCN ---
Date of Procedure: 07/13/23 Procedure(s) Performed: Preoperative diagnosis: Lumbar post laminectomy, and chronic pain syndrome Status post intrathecal pump for chronic pain management Postoperative diagnosis: Lumbar post laminectomy, and chronic pain syndrome Status post intrathecal pump for chronic pain management PROCEDURES: 1. Intrathecal pump analysis. 2. Intrathecal pump reprogramming. 3. Intrathecal pump refill ANESTHESIA: None COMPLICATIONS: None PROCEDURE INDICATION: Patient is well known to pain clinic for management of intrathecal pump for chronic pain management. Patient denied any side effects with the medications. Rated his pain is 4-5 out of 10 in severity. On examination lower extremity muscle strength normal, no clonus. Patient came here for pump refill. PROCEDURE DESCRIPTION: The patient was seen and identified in the preoperative area. Risks, benefits, complications, and alternatives were discussed with the patient. The patient agreed to proceed with the procedure. Intrathecal pump was analyzed and displayed the following information: Type: SynchroMed Type II B Medication: Hydromorphone 16mg /ml infusion at 5.904 mg/day Bupivacaine 12 MG per mL infusion at 4.428 MG per day Baclofen 163 g per mL infusion at the rate of extreme 60.15 g per day Pump Volume: 40 ml North Powder Volume: 9.1 ml PTM: Disabled At this time, the area of the intrathecal pump was exposed, prepped with ChloraPrep x2 , and draped in the usual sterile fashion. After which, the Snaptracs template was used to identify the area of the skin overlying the refill port. After which, a 22-gauge Bhagat needle attached to an extension tubing, which was clamped, attached to a syringe and inserted through the skin into the refill port. At that point, 10 mL of clear fluid was aspirated. The tubing was reclamped. This was discarded. A new medication was then identified from pharmacy, . This was then attached to a filter, which was primed and subsequently injected into the pump in increments with intermittent aspiration to ensure placement into the intrathecal pump. At this point, the pump was reprogrammed. The dose was adjusted : none - patient refuses to go down on the medication as the current pain pump medical regimen helping her in controlling overall pain. Type: SynchroMed Type II B Medication: Hydromorphone 16mg /ml infusion at 5.904 mg/day Bupivacaine 12 MG per mL infusion at 4.428 MG per day Baclofen 163 g per mL infusion at the rate of extreme 60.15 g per day Pump Volume: 40 ml North Powder Volume: 40 ml Lo North Powder Alarm Date: 12 weeks PTM: Disabled The patient tolerated the procedure well and was sent home from the discharge area once meeting discharge criteria. Plan: The patient will follow up for further management and pump refills. Medications given : none . Urine drug screen was ordered today. Narcotic agreement discussed with the patient and patient signed a new opioid contract
== END ==
LOC: ORPAIN 11:58
PROVIDERS: ATTEND Specialist
DX: Z51.81 Encounter for therapeutic drug level monitoring (principal); M96.1 Postlaminectomy syndrome, not elsewhere classified; G89.4 Chronic pain syndrome
CPT/HCPCS: 62370; J1170; J0475

== ENCOUNTER 2023-07-28 10:55 | Day surgery (SDC) | payer MEDICARE, OTHER ==
[2023-07-26 10:52] VITALS: BMI 26.5
[~2023-07-28 10:55] MED LIST changes: -BUPIVACAINE 8.1-40 MG/ML, 31-60 ML SYRINGE MC ONE; -HYDROMORPHONE FOR ANAZAO - PER 4 MG MISCELLANE ONE; +LACTATED RINGERS 1,000 ML IV SCH; -[UNRECOGNIZED DRUG - OTHER] MISCELLANE ONE
[2023-07-28] MEDS: LACTATED RINGERS 1,000 ML IV SCH (11:46)
[2023-07-28] MEDS ORDERED: fentaNYL (PF) 50 MCG/ML 2 ML AMP ONE (11:50)
[2023-07-28] MEDS ORDERED: MIDAZOLAM 2 MG/2 ML VIAL ONE (11:50)
[2023-07-28] MEDS ORDERED: ROPIVACAINE 5MG/ML 20ML VIAL ONE (11:53)
[2023-07-28] MEDS: IV FLUID CONTINUATION 800 ML IV ONE (12:16)
--- NOTE | 2023-07-28 12:17 | P.PCN ---
Date of Procedure: 07/28/23 Description of Procedure: Pre- and Post-operative Diagnosis: Lumbar facet arthropathy, and lumbar spondylosis without myelopathy. Procedure: #1 Diagnostic Medial Branch Block at bilateral Lumbar L1-L2, and L2- L3 (total 4 levels) Surgeon: Mandie Hurt Anesthesia: Local: 1% Lidocaine, IV sedation : Versed 2 mg, and fentanyl 50 mcg Complications: None EBL: None Specimen removed: None Fluoroscopic image: Saved to patient electronic medical records. Indications for Procedure: The patient is well known to pain clinic for his chronic low back pain management. The lumbar facet loading test was positive with a clinical diagnosis of lumbar facet arthropathy. Failed with conservative therapy. Came here for interventional help for better pain relief. Ms. Pryor had previous lumbar L3-S1 medial branch radiofrequency ablation. She requested her pain levels are higher lumbar area. So procedure consent changed to bilateral lumbar L1-L2, and L2-L3 medial branch block. Procedure and Findings: The patient was seen and examined. The written informed consent was obtained after explaining the risks, benefits and alternatives of the procedure to the patient. The patient was brought to the procedure room and was placed in the prone position on the operating table table. A pillow was placed under the abdomen to reduce lumbar lordosis. Standard anesthesia monitoring was done through out the procedure. The skin preparation was done with ChloraPrep, and draping was done in usual sterile fashion. Sterile technique was observed throughout the procedure. Under fluoroscopic guidance, right the Lumbar 1, 2, and 3 levels were identified in the AP view. For lumbar L1, L2, and L3 levels the targeting area of superior articular process, and close to the most medial and superior aspect of transverse process identified, marked. 1ml of 1% Lidocaine was used with a 25 gauge needle to achieve adequate local anesthesia of the skin and subcutaneous tissue at each level. A 25 gauge 3.5 inch spinal needle was placed and advanced targeting area which was close to the most medial and superior aspect of the transverse process. A bony contact was obtained and needle tip position was confirmed at anteroposterior view, lateral view. No paresthesia was noted. A negative aspiration was confirmed. 1 ml solution per level was injected, the block solution containing 6 mL of 0.5% ropivacaine preservative-free solution. The needles were removed intact. Entire procedure repeated on the left side. Lumbar area was cleaned and bandages were applied. Preprocedure VAS: 8 out of 10 in severity Postprocedure VAS: 3 out of 10 in severity Disposition : The patient tolerated the procedure very well. The patient was transferred to the recovery room and remained stable until discharged home. The patient was given detailed discharge instructions for infection, bleeding, and increased pain at the injection site, and was advised to seek immediate medical attention should significant side effects develop. The patient will be scheduled with Pain Clinic within 2-4 weeks for repeat procedure if it's helpful.
[2023-07-28 12:25] VITALS: TEMP 97.4
[2023-07-28 13:23] VITALS: BP 151/88; PULSE 91; RESP 16
--- NOTE | 2023-07-28 15:55 | FL ---
EXAMINATION TYPE: FL guided pain mgmt statistic Intraoperative/procedural fluoroscopic services were provided. Total fluoroscopy time is 10 seconds with a total of 6 submitted images to PACS. Please see the operative/procedural note for further details. DAP: [id number] mGym2
== END 2023-07-28 12:45 | disposition home or self-care (01) ==
LOC: ORPAIN 10:55
DX: M47.816 Spondylosis without myelopathy or radiculopathy, lumbar region (principal); G89.29 Other chronic pain; K21.9 Gastro-esophageal reflux disease without esophagitis; M79.7 Fibromyalgia; G62.9 Polyneuropathy, unspecified; E78.5 Hyperlipidemia, unspecified; M06.9 Rheumatoid arthritis, unspecified; F32.A Depression, unspecified; Z88.0 Allergy status to penicillin; Z88.8 Allergy status to other drugs, medicaments and biological substances; Z79.899 Other long term (current) drug therapy; Z88.5 Allergy status to narcotic agent; Z79.1 Long term (current) use of non-steroidal anti-inflammatories (NSAID)
CPT/HCPCS: 64493; 64494 ×2; J2250; J3010; J2795

== ENCOUNTER → 2023-08-21 | Outpatient (CLI) | payer MEDICARE, OTHER ==
[2023-08-21 12:16] VITALS: BP 147/92; PULSE 85; RESP 16; TEMP 96.9
--- NOTE | 2023-08-21 15:05 | P.PAINPG ---
PQRS Measure Charge Sheet Comment: A 53 yr old female with a history of severe and chronic LBP secondary to lumbar DDD and spondylosis with facet arthropathy without myelopathy, L Sacroiliitis presents today for evaluation s/p BL MBB L1-L2, L2-L3 #2. Pt states she experienced 80% pain relief x 8 hrs s/p procedure. Pain level is provoked at 7 /10 in intensity, constant, predominantly axial, localized in the lumbar spine, stabbing/ sharp in character without shooting pain. Pain is provoked by standing/ walking for periods of 15 min or more. Pain is alleviated with use of a pain pump w Loratab, injections, medications, PT in 2021, physician guided exercises daily since 2021, heat, repositioning and rest. Oswestry axial pain score at 20. UDS from 04/20/23 +Ethyl Glucuronide, +Hydrocodone, +Gabapentin. Interventional pain procedures completed include BL RFA L3-L5 x3 (Aug 2022), L SI x1, Intrathecal Pump Implant, BL MBB L2-L4 x1 Patient is currently on Ibu, Neurontin Patient denies any side effects of the medication(s), denies excessive drowsiness or sleepiness, denies suicidal ideation and reports that the current pain medication is helping to control the pain and improve activities of daily living. Patient denies any motor or sensory deficits. Patient denies any fever or night sweats, denies any change in the bowel movements or urination. Physical Examination: -Constitutional: Cooperative. Not in acute distress . - Neurologic: Cranial nerve II to XII intact. No focal neurological deficits. - Psychatric: Alert & oriented x 3. Matching mood & appropriate affect. Judgment and insight intact. - Musculoskeletal: Cervical spine: Muscle bulk/ tone/ strength in the bilateral upper extremities normal Vertebral body tenderness to palpation over Spurling test positive Distraction test positive Facet loading test positive TTP Thoracic spine Muscle bulk / tone/ strength in the bilateral paraspinal muscles normal Vertebral body tender to palpation over Facet loading test positive TTP Lumbar spine: Motor bulk/ tone/ strength lower extremities , thigh and legs : 5/5 Deep tendon reflexes : Normal Knee Jerk. Normal Ankle Jerk . Vertebral body tenderness to palpation over Gonzales Test positive Lumbar Facet Loading Test positive BL L1-L2, L2-L3 Straight Leg Raise: positive at 30 degrees right side/ left side Gaenslen's Test positive Sacral spine : Severe tenderness over the Sacroiliac joint: right side / left side Range of motion: Flexion of the lumbar spine <60 degrees Range of motion: Extension of the lumbar spine <20 degrees Gaenslen's Test positive right side / left side Wyatt test: positive right side / left side Thigh Thrust Test positive right side / left side Sacral Thrust Test positive right side / left side Imaging: MRI noncontrast of the lumbar spine from August 2022 reviewed Assessment and plan: Chronic LBP secondary to lumbar DDD, spondylosis with facet arthropathy without myelopathy, L Sacroiliitis Recommendation of BL RFA L1-L2, L2-L3 . Exhibited optimal pain relief w prior BL MBB procedures. Risks, benefits of procedure discussed and pt verbalized understanding. Protocol for discontinuation/ continuation of medications surrounding procedure discussed. Minimal anesthesia including Fentanyl and Versed if clinically indicated. UDS from 04/20/23 +Ethyl Glucuronide, +Hydrocodone, +Gabapentin. UDS from 04/20/23 +Ethyl Glucuronide, +Hydrocodone, +Gabapentin. All questions answered. I have spent less than 30 minutes on patient care today. Dr Dinero was available by phone for the evaluation of this patient. The time was used to review the medical records including relevant urine studies and Prescription history (MAPs), review of the available imaging, evaluation and examination of the patient, coordination of care with the medical staff and if applicable referring physicians, as well as creation of the medical record PQRS Narrative: Smoking Status Former smoker Narcotic Agreement Date Signed 04/20/23 Hx Alcohol Use (MH) No Home Medications: Ambulatory Orders Esomeprazole Magnesium [NexIUM] 40 mg PO QAM 08/12/13 HYDROcodone/APAP 10-325MG [Revloc 10-325] 1 tab PO TID PRN 08/12/13 Lidocaine 5% Patch [Lidoderm 5% Patch] 1 - 3 patch TOPICAL DAILY 08/12/13 Multivitamin with Iron [Daily Multivitamin with Iron] 1 tab PO QAM 08/12/13 Cholecalciferol [Vitamin D3] 5,000 unit PO QAM 06/17/15 DULoxetine HCL [Cymbalta] 90 mg PO HS 03/09/17 Ascorbic Acid [Vitamin C] 1,000 mg PO QAM 08/22/17 Magnesium Oxide [Valencia] 1,000 mg PO QAM 08/22/17 Hydromorphone,Bupivacain,Baclo 1 dose INTRATHECA CONTINUOUS MDD pain pump 02/20/18 Temazepam [Restoril] 15 mg PO HS PRN 02/20/18 Gabapentin [Neurontin] 200 mg PO HS 03/02/20 Gabapentin [Neurontin] 300 mg PO QAM 03/02/20 Rosuvastatin [Crestor] 10 mg PO HS 09/07/22 Biotin [Uszn-Snic-Mkwcu] 10,000 mcg PO DAILY 07/13/23 Controlled Substance Measures - Controlled Substance Measures Is patient prescribed a controlled substance at discharge?: No
== END ==
LOC: PNWHC3 11:09
PROVIDERS: ATTEND Specialist
DX: M51.36 Other intervertebral disc degeneration, lumbar region (principal); M47.816 Spondylosis without myelopathy or radiculopathy, lumbar region; M46.1 Sacroiliitis, not elsewhere classified; Z87.891 Personal history of nicotine dependence; Z88.0 Allergy status to penicillin; Z88.8 Allergy status to other drugs, medicaments and biological substances; Z88.5 Allergy status to narcotic agent; Z91.048 Other nonmedicinal substance allergy status
CPT/HCPCS: 99211

== ENCOUNTER 2023-10-24 12:30 | Day surgery (SDC) | payer MEDICARE, OTHER ==
[~2023-10-24 12:30] MED LIST changes: +LACTATED RINGERS 1,000 ML BAG ONE; -LACTATED RINGERS 1,000 ML IV SCH
[2023-10-24] MEDS ORDERED: fentaNYL (PF) 50 MCG/ML 2 ML AMP ONE (12:33)
[2023-10-24] MEDS ORDERED: MIDAZOLAM 2 MG/2 ML VIAL ONE (12:33)
[2023-10-24] MEDS ORDERED: ROPIVACAINE 5MG/ML 20ML VIAL ONE (12:33)
--- NOTE | 2023-12-12 18:21 | FL ---
EXAMINATION TYPE: FL guided pain mgmt statistic DATE OF EXAM: 11/14/2023 4:45 PM COMPARISON: Pre Operative Images if available both CT/MRI or plain film CLINICAL INDICATION: Female, 53 years old with history of NOEMI LUM FB; TECHNIQUE: FL guided pain mgmt statistic, multiple fluoroscopic images provided for procedure. Total fluoroscopy time: 34 seconds Total submitted images to PACS: 4 DAP: [id number] mGym2 Gycm2 uGym2 cGycm2 or equivalent. FINDINGS: IMPRESSION: 1. No evidence for intraoperative complication. 2. Please see the operative/procedural note for further details. [facility], , 12/12/2023 6:18 PM
== END 2023-10-24 13:00 ==
LOC: ORPAIN 12:30
PROVIDERS: ATTEND Specialist
DX: M47.816 Spondylosis without myelopathy or radiculopathy, lumbar region (principal); Z88.0 Allergy status to penicillin; Z88.6 Allergy status to analgesic agent; Z88.8 Allergy status to other drugs, medicaments and biological substances
CPT/HCPCS: 99152

== ENCOUNTER → 2023-11-16 | Outpatient (CLI) | payer MEDICARE, OTHER ==
[2023-11-16 13:32] VITALS: BP 142/96; PULSE 100; RESP 18
--- NOTE | 2023-11-16 14:14 | P.PAINPG ---
Objective - Vital Signs Vital signs: Vital Signs Temp Pulse 100 11/16/23 13:31 Resp 18 11/16/23 13:31 BP 142/96 11/16/23 13:31 Pulse Ox 96 11/16/23 13:31 FiO2 Intake & Output 11/15/23 11/16/23 11/16/23 18:59 06:59 18:59 Weight 68.039 kg PQRS Measure Charge Sheet Mode of Arrival: Ambulatory Comment: A 53 yr old female with a history of severe and chronic LBP secondary to lumbar DDD and spondylosis with facet arthropathy without myelopathy, L Sacroiliitis presents today for evaluation s/p BL MBB L1-L2, L2-L3 #2. Pt states she experienced 100% pain relief x 6 days s/p procedure. Pain level is provoked at 8 /10 in intensity, constant, predominantly axial, localized in the lumbar spine, stabbing/ sharp in character without shooting pain. Pain is provoked by standing/ walking for periods of 15 min or more. Pain is alleviated with use of a pain pump w Lortab, injections, medications, PT in 2021, physician guided exercises daily since 2021, heat, repositioning and rest. Interventional pain procedures completed include BL RFA L3-L5 x3 (Aug 2022), L SI x1, Intrathecal Pump Implant, BL MBB L2-L4 x2 Patient is currently on Mobic, Ibu, Neurontin, Lidoderm Patient denies any side effects of the medication(s), denies excessive drowsiness or sleepiness, denies suicidal ideation and reports that the current pain medication is helping to control the pain and improve activities of daily living. Patient denies any motor or sensory deficits. Patient denies any fever or night sweats, denies any change in the bowel movements or urination. Physical Examination: -Constitutional: Cooperative. Not in acute distress . - Neurologic: Cranial nerve II to XII intact. No focal neurological deficits. - Psychatric: Alert & oriented x 3. Matching mood & appropriate affect. Judgment and insight intact. - Musculoskeletal: Cervical spine: Muscle bulk/ tone/ strength in the bilateral upper extremities normal Vertebral body tenderness to palpation over Spurling test positive Distraction test positive Facet loading test positive TTP Thoracic spine Muscle bulk / tone/ strength in the bilateral paraspinal muscles normal Vertebral body tender to palpation over Facet loading test positive TTP Lumbar spine: Motor bulk/ tone/ strength lower extremities , thigh and legs : 5/5 Deep tendon reflexes : Normal Knee Jerk. Normal Ankle Jerk . Vertebral body tenderness to palpation over Gonzales Test positive Lumbar Facet Loading Test positive BL L1-L2, L2-L3 Straight Leg Raise: positive at 30 degrees right side/ left side Gaenslen's Test positive Sacral spine : Severe tenderness over the Sacroiliac joint: right side / left side Range of motion: Flexion of the lumbar spine <60 degrees Range of motion: Extension of the lumbar spine <20 degrees Gaenslen's Test positive right side / left side Wyatt test: positive right side / left side Thigh Thrust Test positive right side / left side Sacral Thrust Test positive right side / left side Imaging: MRI noncontrast of the lumbar spine from August 2022 reviewed Assessment and plan: Chronic LBP secondary to lumbar DDD, spondylosis with facet arthropathy without myelopathy, L Sacroiliitis Recommendation of BL RFA L1-L2, L2-L3 . Exhibited optimal pain relief w prior BL MBB procedures. Risks, benefits of procedure discussed and pt verbalized understanding. Protocol for discontinuation/ continuation of medications surrounding procedure discussed. Minimal anesthesia including Fentanyl and Versed if clinically indicated. Opiate/ narcotic agreement signed 04/20/23 . UDS from 04/20/23 +Ethyl Glucuronide, +Hydrocodone, +Gabapentin. All questions answered. I have spent less than 30 minutes on patient care today. Dr Dinero was available by phone for the evaluation of this patient. The time was used to review the medical records including relevant urine studies and Prescription history (MAPs), review of the available imaging, evaluation and examination of the patient, coordination of care with the medical staff and if applicable referring physicians, as well as creation of the medical record PQRS Narrative: Smoking Status Former smoker Narcotic Agreement Date Signed 04/20/23 Blood Pressure 142/96 Scale Used Numeric (1 - 10) Hx Alcohol Use (MH) No Home Medications: Ambulatory Orders Esomeprazole Magnesium [NexIUM] 40 mg PO QAM 08/12/13 HYDROcodone/APAP 10-325MG [Mercedes 10-325] 1 tab PO TID PRN 08/12/13 Lidocaine 5% Patch [Lidoderm 5% Patch] 1 - 3 patch TOPICAL DAILY 08/12/13 Multivitamin with Iron [Daily Multivitamin with Iron] 1 tab PO QAM 08/12/13 Cholecalciferol [Vitamin D3] 5,000 unit PO QAM 06/17/15 DULoxetine HCL [Cymbalta] 90 mg PO HS 03/09/17 Ascorbic Acid [Vitamin C] 1,000 mg PO QAM 08/22/17 Magnesium Oxide [Valencia] 1,000 mg PO QAM 08/22/17 Hydromorphone,Bupivacain,Baclo 1 dose INTRATHECA CONTINUOUS MDD pain pump 02/20/18 Temazepam [Restoril] 15 mg PO HS PRN 02/20/18 Gabapentin [Neurontin] 200 mg PO HS 03/02/20 Gabapentin [Neurontin] 300 mg PO QAM 03/02/20 Rosuvastatin [Crestor] 10 mg PO HS 09/07/22 Biotin [Wdvf-Klzz-Hgzpx] 10,000 mcg PO DAILY 07/13/23 Controlled Substance Measures - Controlled Substance Measures Is patient prescribed a controlled substance at discharge?: No
== END ==
LOC: PNWHC3 12:02
PROVIDERS: ATTEND Specialist
DX: M47.816 Spondylosis without myelopathy or radiculopathy, lumbar region
CPT/HCPCS: 99211

== ENCOUNTER 2023-12-26 08:49 | Day surgery (SDC) | payer MEDICARE, OTHER ==
[2023-12-22 11:31] VITALS: BMI 25.7
[~2023-12-26 08:49] MED LIST changes: -LACTATED RINGERS 1,000 ML BAG ONE; +LACTATED RINGERS 1,000 ML IV SCH
[2023-12-26 10:10] VITALS: TEMP 97
[2023-12-26] MEDS: IV FLUID CONTINUATION 1,000 ML IV ONE ×4 (10:20→12:01)
[2023-12-26] MEDS ORDERED: methylPREDNISolone ACETATE 40 MG/ML 1 ML VIAL ONE (10:56)
[2023-12-26] MEDS ORDERED: MIDAZOLAM 2 MG/2 ML VIAL ONE (10:56)
[2023-12-26] MEDS ORDERED: fentaNYL (PF) 50 MCG/ML 2 ML AMP ONE (10:56)
[2023-12-26] MEDS ORDERED: ROPIVACAINE 5MG/ML 20ML VIAL ONE (10:56)
--- NOTE | 2023-12-26 11:30 | P.PCN ---
Date of Procedure: 12/26/23 Procedure(s) Performed: PREOPERATIVE DIAGNOSIS: 1-Lumbar Spondylosis with Facet Arthropathy without myelopathy. 2- Lumber degenerative disc disease. POSTOPERATIVE DIAGNOSIS: 1- Lumbar Spondylosis with Facet Arthropathy without myelopathy. 2- Lumber degenerative disc disease. PROCEDURES : Bilateral Radiofrequency thermocoagulation, L1, L2 ,L3 medial branch, with fluor guidance (fluoroscopy images in the radiology department) ( to denervate the facet joint at bilateral L1-2, ,and L2- 3 levels ). ANESTHESIA: Moderate sedation with intravenous versed 4 mg and fentaneyl 200 mcg (sedation start time 10:56 ,ended at 11:23 ). EBL: Minimal PROCEDURE INDICATION: The patient with low back pain secondary to lumbar facet arthropathy who had more than 50% relief of her pain with previous diagnostic lumbar medial branch block with bupivacaine. PROCEDURE DESCRIPTION / TECHNIQUE: The patient was seen and identified in the preoperative area. Risks, benefits, complications, including but not limited to risk of infection ,bleeding , allergic reactions to the medications and no complete pain releife , and alternatives were discussed with the patient, the patient agreed to proceed with the procedure and signed the consent. IV was started. Vital signs remained stable throughout the procedure. Patient was taken to the OR and time out was completed. The patient was placed in the prone position on the procedure table. The lumber area was prepped and draped in the usual sterile fashion. . Vital signs were closely monitored during the procedure .IV sedation was used during the procedure to decrease patients anxiety. Using AP and then oblique fluoroscopy, the ``eye of the Jarad dog corresponding to the connection between the superior and transverse articular processes of right L1, L2, and L3 were identified, marked, and localized with 1% lidocaine. Subsequently, a 18 guage ( VENOM )100-mm radiofrequency cannula with a 10-mm active tip was advanced guided by fluoroscopy to each of the``eyes of the Jarad dog at right L1, L2, and L3. Each site then underwent sensory testing at 50 Hz and 0 to 1 volt and motor testing at 2.5 Hz and 0 to 3 volt with local stimulation, but no radicular symptoms down the legs. Thereafter each sites underwent radiofrequency thermocoagulation at 80 degrees celsius for 90 seconds after injecting 0.5 ml of PF Ropivacaine 1ml, then after the thermocoagulation done , 1 ml of the block solution containing Depo-Medrol 20 mg and 3 ml of Ropivacaine 0.5% was injected at the right L1 , L2 , and L3, levels after negative aspiration of CSF and blood and with no paresthesias. Cannulas were retracted while injecting lidocaine 1% until the needle is out. The same procedure was repeated at the level of Left L1, L2, and L3 levels. At the end of the procedure, the skin was cleansed and bandages were applied. COMPLICATIONS: No acute complications. DISPOSITION / PLANS: The patient was placed in a supine position and transferred to the recovery area in a stable condition for observation and was discharged from the recovery room after meeting discharge criteria. Home discharge instructions given to the patient by the staff. The patient was reexamined prior to discharge. The patient will schedule a follow up in the clinic in 2-4 weeks.
--- NOTE | 2023-12-26 11:40 | FL ---
EXAMINATION TYPE: FL guided pain mgmt statistic DATE OF EXAM: 12/26/2023 HISTORY: Fluoroscopy time Total dose area product (DAP) in uGy*m?, mGy*cm? (or similar): 0.3006. IMPRESSION: 1. Fluoroscopy time. [facility], , 12/26/2023 11:37 AM
[2023-12-26 11:56] VITALS: BP 141/93; PULSE 99; RESP 20
== END 2023-12-26 12:15 | disposition home or self-care (01) ==
LOC: ORPAIN 08:49
PROVIDERS: ATTEND Specialist
DX: M47.816 Spondylosis without myelopathy or radiculopathy, lumbar region
CPT/HCPCS: 99152; 99153

== ENCOUNTER → 2024-01-11 | Day surgery (SDC) | payer MEDICARE, OTHER ==
[2024-01-11 12:22] VITALS: BP 123/86; PULSE 82; RESP 18; TEMP 97.6
--- NOTE | 2024-01-11 13:10 | P.PCN ---
Date of Procedure: 01/11/24 Procedure(s) Performed: Preoperative diagnosis: Lumbar post laminectomy, and chronic pain syndrome Status post intrathecal pump for chronic pain management Postoperative diagnosis: Lumbar post laminectomy, and chronic pain syndrome Status post intrathecal pump for chronic pain management PROCEDURES: 1. Intrathecal pump analysis. 2. Intrathecal pump reprogramming. 3. Intrathecal pump refill ANESTHESIA: None COMPLICATIONS: None PROCEDURE INDICATION: Patient is well known to pain clinic for management of intrathecal pump for chronic pain management. Patient denied any side effects with the medications. Rated his pain is 4-5 out of 10 in severity. On examination lower extremity muscle strength normal, no clonus. Patient came here for pump refill. PROCEDURE DESCRIPTION: The patient was seen and identified in the preoperative area. Risks, benefits, complications, and alternatives were discussed with the patient. The patient agreed to proceed with the procedure. Intrathecal pump was analyzed and displayed the following information: Type: SynchroMed Type II B Medication: Hydromorphone 16mg /ml infusion at 5.904 mg/day Bupivacaine 12 MG per mL infusion at 4.428 MG per day Baclofen 163 g per mL infusion at the rate of extreme 60.15 g per day Pump Volume: 40 ml [place] Volume: 3.9 ml PTM: Disabled At this time, the area of the intrathecal pump was exposed, prepped with ChloraPrep x2 , and draped in the usual sterile fashion. After which, the [employer] template was used to identify the area of the skin overlying the refill port. After which, a 22-gauge Bhagat needle attached to an extension tubing, which was clamped, attached to a syringe and inserted through the skin into the refill port. At that point, 6.5 mL of clear fluid was aspirated. The tubing was reclamped. This was discarded. A new medication was then identified from pharmacy, . This was then attached to a filter, which was primed and subsequently injected into the pump in increments with intermittent aspiration to ensure placement into the intrathecal pump. At this point, the pump was reprogrammed. The dose was adjusted : none - patient refuses to go down on the medication as the current pain pump medical regimen helping her in controlling overall pain. Type: SynchroMed Type II B Medication: Hydromorphone 16mg /ml infusion at 5.904 mg/day Bupivacaine 12 MG per mL infusion at 4.428 MG per day Baclofen 163 g per mL infusion at the rate of extreme 60.15 g per day Pump Volume: 40 ml [place] Volume: 40 ml Lo [place] Alarm Date: 12 weeks PTM: Disabled The patient tolerated the procedure well and was sent home from the discharge area once meeting discharge criteria. Plan: The patient will follow up for further management and pump refills. Medications given : none . Urine drug screen was ordered today. Narcotic agreement discussed with the patient and patient signed a new opioid contract
== END ==
LOC: ORPAIN 12:00
PROVIDERS: ATTEND Specialist
DX: G89.4 Chronic pain syndrome (principal); M47.816 Spondylosis without myelopathy or radiculopathy, lumbar region; Z88.0 Allergy status to penicillin; Z87.891 Personal history of nicotine dependence
CPT/HCPCS: 62370

== ENCOUNTER 2024-04-05 10:58 | Day surgery (SDC) | payer MEDICARE, OTHER ==
[2024-04-05] MEDS ORDERED: [UNRECOGNIZED DRUG - OTHER] MISCELLANE ONE (10:59)
[2024-04-05] MEDS ORDERED: BUPIVACAINE 8.1-40 MG/ML, 31-60 ML SYRINGE MC ONE (10:59)
[2024-04-05] MEDS ORDERED: HYDROMORPHONE MISCELLANE ONE (10:59)
[2024-04-05 11:10] VITALS: PULSE 100; RESP 18; TEMP 97.6
--- NOTE | 2024-04-05 11:23 | P.PCN ---
Date of Procedure: 04/05/24 Procedure(s) Performed: Preoperative diagnosis: Lumbar post laminectomy, and chronic pain syndrome Status post intrathecal pump for chronic pain management Postoperative diagnosis: Lumbar post laminectomy, and chronic pain syndrome Status post intrathecal pump for chronic pain management PROCEDURES: 1. Intrathecal pump analysis. 2. Intrathecal pump reprogramming. 3. Intrathecal pump refill ANESTHESIA: None COMPLICATIONS: None PROCEDURE INDICATION: Patient is well known to pain clinic for management of intrathecal pump for chronic pain management. Patient denied any side effects with the medications. Rated his pain is 4-5 out of 10 in severity. On examination lower extremity muscle strength normal, no clonus. Patient came here for pump refill. PROCEDURE DESCRIPTION: The patient was seen and identified in the preoperative area. Risks, benefits, complications, and alternatives were discussed with the patient. The patient agreed to proceed with the procedure. Intrathecal pump was analyzed and displayed the following information: Type: SynchroMed Type II B Medication: Hydromorphone 16mg /ml infusion at 5.904 mg/day Bupivacaine 12 MG per mL infusion at 4.428 MG per day Baclofen 163 g per mL infusion at the rate of extreme 60.15 g per day Pump Volume: 40 ml [place] Volume: 8.7 ml PTM: Disabled At this time, the area of the intrathecal pump was exposed, prepped with ChloraPrep x2 , and draped in the usual sterile fashion. After which, the [employer] template was used to identify the area of the skin overlying the refill port. After which, a 22-gauge Bhagat needle attached to an extension tubing, which was clamped, attached to a syringe and inserted through the skin into the refill port. At that point, 11 mL of clear fluid was aspirated. The tubing was reclamped. This was discarded. A new medication was then identified from pharmacy, . This was then attached to a filter, which was primed and subsequently injected into the pump in increments with intermittent aspiration to ensure placement into the intrathecal pump. At this point, the pump was reprogrammed. The dose was adjusted : none - patient refuses to go down on the medication as the current pain pump medical regimen helping her in controlling overall pain. Type: SynchroMed Type II B Medication: Hydromorphone 16mg /ml infusion at 5.904 mg/day Bupivacaine 12 MG per mL infusion at 4.428 MG per day Baclofen 163 g per mL infusion at the rate of extreme 60.15 g per day Pump Volume: 40 ml [place] Volume: 40 ml Lo [place] Alarm Date: 12 weeks PTM: Disabled The patient tolerated the procedure well and was sent home from the discharge area once meeting discharge criteria. Plan: The patient will follow up for further management and pump refills. Medications given : none . Urine drug screen was ordered today. Narcotic agreement discussed with the patient and patient signed a new opioid contract
[2024-04-05 11:31] VITALS: BP 124/81
== END 2024-04-05 11:30 | disposition home or self-care (01) ==
LOC: ORPAIN 10:58
PROVIDERS: ATTEND Specialist
DX: M47.816 Spondylosis without myelopathy or radiculopathy, lumbar region (principal); G89.4 Chronic pain syndrome
CPT/HCPCS: 62370

== ENCOUNTER → 2024-04-15 | Outpatient (CLI) | payer MEDICARE, OTHER ==
[2024-04-15 12:33] VITALS: BP 140/90; PULSE 96; RESP 18
--- NOTE | 2024-04-15 16:18 | P.PAINPG ---
Objective - Vital Signs Vital signs: Vital Signs Temp Pulse 96 04/15/24 12:29 Resp 18 04/15/24 12:29 BP 140/90 04/15/24 12:29 Pulse Ox 97 04/15/24 12:29 FiO2 Intake & Output 04/14/24 04/15/24 04/15/24 18:59 06:59 18:59 Weight 68.039 kg PQRS Measure Charge Sheet Mode of Arrival: Ambulatory Comment: A 53 yr old female with a history of severe and chronic LBP secondary to lumbar DDD and spondylosis with facet arthropathy without myelopathy, L Sacroiliitis presents today for evaluation. Pt underwent a BL RFA L1-L2/ L2-L3 on Dec 2023 where she states she experienced 90% pain relief s/p procedure. Pain level is provoked at 8 /10 in intensity, constant, predominantly axial, localized in the lumbar spine, stabbing/ sharp in character without shooting pain. Pain is provoked by standing/ walking for periods of 15 min or more. Pain is alleviated with use of a pain pump w Lortab, injections, medications, PT in 2021, physician guided exercises daily since 2021, heat, repositioning and rest. Interventional pain procedures completed include BL RFA L3-L5 x3 (Aug 2022), L SI x1, Intrathecal Pump Implant, BL RFA L2-L4 (01/03) Patient is currently on Mobic, Ibu, Neurontin, Lidoderm Patient denies any side effects of the medication(s), denies excessive drowsiness or sleepiness, denies suicidal ideation and reports that the current pain medication is helping to control the pain and improve activities of daily living. Patient denies any motor or sensory deficits. Patient denies any fever or night sweats, denies any change in the bowel movements or urination. Physical Examination: -Constitutional: Cooperative. Not in acute distress . - Neurologic: Cranial nerve II to XII intact. No focal neurological deficits. - Psychatric: Alert & oriented x 3. Matching mood & appropriate affect. Judgm ent and insight intact. - Musculoskeletal: Cervical spine: Muscle bulk/ tone/ strength in the bilateral upper extremities normal Vertebral body tenderness to palpation over [place]ling test positive Distraction test positive Facet loading test positive TTP Thoracic spine Muscle bulk / tone/ strength in the bilateral paraspinal muscles normal Vertebral body tender to palpation over Facet loading test positive TTP Lumbar spine: Motor bulk/ tone/ strength lower extremities , thigh and legs : 5/5 Deep tendon reflexes : Normal Knee Jerk. Normal Ankle Jerk . Vertebral body tenderness to palpation over Gonzales Test positive Lumbar Facet Loading Test positive BL L4-L5, L5-S1 Straight Leg Raise: positive at 30 degrees right side/ left side Gaenslen's Test positive Sacral spine : Severe tenderness over the Sacroiliac joint: right side / left side Range of motion: Flexion of the lumbar spine <60 degrees Range of motion: Extension of the lumbar spine <20 degrees Gaenslen's Test positive right side / left side Wyatt test: positive right side / left side Thigh Thrust Test positive right side / left side Sacral Thrust Test positive right side / left side Imaging: MRI non contrast of the lumbar spine from August 2022 reviewed Assessment and plan: Chronic LBP secondary to radiculopathy, spondylosis with facet arthropathy without myelopathy, L Sacroiliitis Recommendation of medication management of pain pump. Opiate/ narcotic agreement signed 04/15/24. UDS from 04/20/23 +Ethyl Glucuronide, +Hydrocodone, +Gabapentin. All questions answered. I have spent less than 30 minutes on patient care today. Dr Dinero was available by phone for the evaluation of this patient. The time was used to review the medical records including relevant urine studies and Prescription history (MAPs), review of the available imaging, evaluation and examination of the patient, coordination of care with the medical staff and if applicable referring physicians, as well as creation of the medical record - Pain Location Lower Back Non-Pharmacological Interventions: Exercise, Heat, Stretching Pharmacological Interventions: Medication, Topical Medication PQRS Narrative: Smoking Status Former smoker Narcotic Agreement Date Signed 04/20/23 Blood Pressure 140/90 Pain Intensity [Lower Back] 7 Scale Used Numeric (1 - 10) Hx Alcohol Use (MH) No Home Medications: Ambulatory Orders Esomeprazole Magnesium [NexIUM] 40 mg PO QAM 08/12/13 HYDROcodone/APAP 10-325MG [[place] 10-325] 1 tab PO TID PRN 08/12/13 Lidocaine 5% Patch [Lidoderm 5% Patch] 1 - 3 patch TOPICAL DAILY 08/12/13 Multivitamin with Iron [Daily Multivitamin with Iron] 1 tab PO QAM 08/12/13 Cholecalciferol [Vitamin D3] 5,000 unit PO QAM 06/17/15 DULoxetine HCL [Cymbalta] 90 mg PO HS 03/09/17 Ascorbic Acid [Vitamin C] 1,000 mg PO QAM 08/22/17 Magnesium Oxide [[place]] 1,000 mg PO QAM 08/22/17 Hydromorphone,Bupivacain,Baclo 1 dose INTRATHECA CONTINUOUS MDD pain pump 02/20/18 Temazepam [Restoril] 15 mg PO HS PRN 02/20/18 Gabapentin [Neurontin] 200 mg PO HS 03/02/20 Gabapentin [Neurontin] 300 mg PO QAM 03/02/20 Rosuvastatin [Crestor] 10 mg PO HS 09/07/22 Biotin [Xete-Jjgl-Qvngy] 10,000 mcg PO DAILY 07/13/23 Meloxicam [Mobic] 7.5 mg PO BID 01/11/24 Controlled Substance Measures - Controlled Substance Measures Is patient prescribed a controlled substance at discharge?: No
== END ==
LOC: PNWHC3 11:59
PROVIDERS: ATTEND Specialist
DX: M47.816 Spondylosis without myelopathy or radiculopathy, lumbar region (principal); M54.16 Radiculopathy, lumbar region; M46.1 Sacroiliitis, not elsewhere classified; G89.29 Other chronic pain; Z87.891 Personal history of nicotine dependence; Z88.6 Allergy status to analgesic agent; Z88.0 Allergy status to penicillin; Z88.8 Allergy status to other drugs, medicaments and biological substances; Z88.5 Allergy status to narcotic agent; Z91.09 Other allergy status, other than to drugs and biological substances
CPT/HCPCS: 99212

== ENCOUNTER → 2024-05-10 | Day surgery (SDC) | payer MEDICARE, OTHER ==
[2024-05-09 09:50] VITALS: BMI 25.7
[~2024-05-10] MED LIST changes: +MIDAZOLAM 2 MG/2 ML VIAL ONE; +ROPIVACAINE 5MG/ML 20ML VIAL ONE; +fentaNYL (PF) 50 MCG/ML 2 ML AMP ONE; +methylPREDNISolone ACETATE 40 MG/ML 1 ML VIAL ONE
[2024-05-10 12:11] VITALS: RESP 16; TEMP 97.3
[2024-05-10] MEDS: IV FLUID CONTINUATION 1,000 ML IV ONE ×2 (12:21→13:21)
--- NOTE | 2024-05-10 13:11 | P.PCN ---
Date of Procedure: 05/10/24 Procedure(s) Performed: PREOPERATIVE DIAGNOSIS: 1-Lumbar Spondylosis with Facet Arthropathy without myelopathy. 2- Lumber degenerative disc disease. POSTOPERATIVE DIAGNOSIS: 1- Lumbar Spondylosis with Facet Arthropathy without myelopathy. 2- Lumber degenerative disc disease. PROCEDURES : Bilateral Radiofrequency thermocoagulation, L3 , L4 , and L5 medial branch, with fluoroscopic guidance (fluoroscopy images available in the radiology department) ( to denervate the facet joint at bilateral L4-5 ,and L5- S1 levels ). ANESTHESIA: Moderate sedation with Versed 4 mg and fentanyl 200 mcg. (Patient is start time 12:43 , ended at 13:08 ) EBL: Minimal PROCEDURE INDICATION: The patient with low back pain secondary to lumbar facet arthropathy who had more than 50% relief of her pain with previous diagnostic lumbar medial branch block with bupivacaine. PROCEDURE DESCRIPTION / TECHNIQUE: The patient was seen and identified in the preoperative area. Risks, benefits, complications, including but not limited to risk of infection ,bleeding , allergic reactions to the medications and no complete pain releife , and alternatives were discussed with the patient, the patient agreed to proceed with the procedure and signed the consent. IV was started. Vital signs remained stable throughout the procedure. Patient was taken to the OR and time out was completed. The patient was placed in the prone position on the procedure table. The lumber area was prepped and draped in the usual sterile fashion. . Vital signs were closely monitored during the procedure .IV sedation was used during the procedure to decrease patients anxiety. Using AP and then oblique fluoroscopy, the ``eye of the Jarad dog corresponding to the connection between the superior and transverse articular processes of right L3, L4, and L5 were identified, marked, and localized with 1% lidocaine. Subsequently, a 18 -qx ( VENOM ) radiofrequency cannula with a 10-mm active tip was advanced guided by fluoroscopy to each of the``eyes of the Jarad dog at right L3, L4, and L5. Each site then underwent sensory testing at 50 Hz and 0 to 1 volt and motor testing at 2.5 Hz and 0 to 3 volt with local stimulation, but no radicular symptoms down the legs. Thereafter each sites underwent radiofrequency thermocoagulation at 80 degrees celsius for 90 seconds after injecting 0.5 ml of PF Ropivacaine 1ml, then after the thermocoagulation done , 1 ml of the block solution containing Depo-Medrol 20 mg and 3 ml of Ropivacaine 0.5% was injected at the right L3 , L4 , and L5 , levels after negative aspiration of CSF and blood and with no paresthesias. Cannulas were retracted while injecting lidocaine 1% until the needle is out. The same procedure was repeated at the level of Left L3, L4, and L5 levels. At the end of the procedure, the skin was cleansed and bandages were applied. COMPLICATIONS: No acute complications. DISPOSITION / PLANS: The patient was placed in a supine position and transferred to the recovery area in a stable condition for observation and was discharged from the recovery room after meeting discharge criteria. Home discharge instructions given to the patient by the staff. The patient was reexamined prior to discharge. The patient will schedule a follow up in the clinic in 2-4 weeks.
[2024-05-10 13:40] VITALS: BP 143/80; PULSE 80
--- NOTE | 2024-05-10 14:00 | FL ---
EXAMINATION TYPE: FL guided pain mgmt statistic DATE OF EXAM: 05/10/2024 CLINICAL INDICATION: Female, 54 years old with history of PAIN; [facility], TECHNIQUE: Fluoroscopy. COMPARISON: None. FINDINGS: Fluoroscopic guidance was provided during pain relief procedure performed by Dr. Dinero . A total of 17.1 seconds of fluoroscopic time was utilized during the procedure and 6 spot images a re acquired. Images acquired shows needle localization at multiple levels in the low back. Metallic disc material at the lumbosacral junction is noted. Total DAP: 0.54802 mGym2. IMPRESSION: As Above. [facility], , 05/10/2024 1:58 PM
== END ==
LOC: ORPAIN 11:15
PROVIDERS: ATTEND Specialist
DX: M47.816 Spondylosis without myelopathy or radiculopathy, lumbar region (principal); M51.369 Other intervertebral disc degeneration, lumbar region without mention of lumbar back pain or lower extremity pain; Z88.0 Allergy status to penicillin; Z88.6 Allergy status to analgesic agent; Z88.8 Allergy status to other drugs, medicaments and biological substances
CPT/HCPCS: 64635; 64636 ×2; 99152; 99153; J2250; J3010; J2795; J1010

== ENCOUNTER → 2024-06-21 | Day surgery (SDC) | payer MEDICARE, OTHER ==
[~2024-06-21] MED LIST changes: +BUPIVACAINE 8.1-40 MG/ML, 31-60 ML SYRINGE MC ONE; +HYDROMORPHONE MISCELLANE ONE; -LACTATED RINGERS 1,000 ML IV SCH; -MIDAZOLAM 2 MG/2 ML VIAL ONE; -ROPIVACAINE 5MG/ML 20ML VIAL ONE; +[UNRECOGNIZED DRUG - OTHER] MISCELLANE ONE; -fentaNYL (PF) 50 MCG/ML 2 ML AMP ONE; -methylPREDNISolone ACETATE 40 MG/ML 1 ML VIAL ONE
[2024-06-21 12:31] VITALS: BP 154/88; PULSE 92; RESP 18; TEMP 98
--- NOTE | 2024-06-21 13:08 | P.PCN ---
Date of Procedure: 06/21/24 Procedure(s) Performed: Preoperative diagnosis: Lumbar post laminectomy, and chronic pain syndrome Status post intrathecal pump for chronic pain management Postoperative diagnosis: Lumbar post laminectomy, and chronic pain syndrome Status post intrathecal pump for chronic pain management PROCEDURES: 1. Intrathecal pump analysis. 2. Intrathecal pump reprogramming. 3. Intrathecal pump refill ANESTHESIA: None COMPLICATIONS: None PROCEDURE INDICATION: Patient is well known to pain clinic for management of intrathecal pump for chronic pain management. Patient denied any side effects with the medications. Rated his pain is 4-5 out of 10 in severity. On examination lower extremity muscle strength normal, no clonus. Patient came here for pump refill. PROCEDURE DESCRIPTION: The patient was seen and identified in the preoperative area. Risks, benefits, complications, and alternatives were discussed with the patient. The patient agreed to proceed with the procedure. Intrathecal pump was analyzed and displayed the following information: Type: SynchroMed Type II B Medication: Hydromorphone 16mg /ml infusion at 5.904 mg/day Bupivacaine 12 MG per mL infusion at 4.428 MG per day Baclofen 163 g per mL infusion at the rate of extreme 60.15 g per day Pump Volume: 40 ml [place] Volume: 11.6 ml PTM: Disabled At this time, the area of the intrathecal pump was exposed, prepped with ChloraPrep x2 , and draped in the usual sterile fashion. After which, the [employer] template was used to identify the area of the skin overlying the refill port. After which, a 22-gauge Bhagat needle attached to an extension tubing, which was clamped, attached to a syringe and inserted through the skin into the refill port. At that point, 14 mL of clear fluid was aspirated. The tubing was reclamped. This was discarded. A new medication was then identified from pharmacy, . This was then attached to a filter, which was primed and subsequently injected into the pump in increments with intermittent aspiration to ensure placement into the intrathecal pump. At this point, the pump was reprogrammed. The dose was adjusted : none - patient refuses to go down on the medication as the current pain pump medical regimen helping her in controlling overall pain. Type: SynchroMed Type II B Medication: Hydromorphone 16mg /ml infusion at 5.904 mg/day Bupivacaine 12 MG per mL infusion at 4.428 MG per day Baclofen 163 g per mL infusion at the rate of extreme 60.15 g per day Pump Volume: 40 ml [place] Volume: 40 ml Lo [place] Alarm Date: 12 weeks PTM: Disabled The patient tolerated the procedure well and was sent home from the discharge area once meeting discharge criteria. Plan: The patient will follow up for further management and pump refills. Medications given : none . Urine drug screen was ordered today. Narcotic agreement discussed with the patient and patient signed a new opioid contract
== END ==
LOC: ORPAIN 12:11
PROVIDERS: ATTEND Specialist
DX: M96.1 Postlaminectomy syndrome, not elsewhere classified (principal); G89.4 Chronic pain syndrome
CPT/HCPCS: 62370

== ENCOUNTER → 2024-07-01 | Outpatient (CLI) | payer MEDICARE, OTHER ==
[2024-07-01 13:54] VITALS: BP 162/101; PULSE 85; RESP 16; TEMP 98.1
--- NOTE | 2024-07-01 14:33 | P.PAINPG ---
PQRS Measure Charge Sheet Comment: A 54 yr old female with a history of severe and chronic LBP secondary to radiculopathy, spondylosis with facet arthropathy without myelopathy, L Sacroiliitis presents today for evaluation s/p BL RFA L4-L5/ L5-S1. Pt states she experienced 75 % pain relief s/p procedure. Pain level is provoked at 5 /10 in intensity, constant, predominantly axial, localized in the lumbar spine, stabbing/ sharp in character without shooting pain. Pain is provoked by standing/ walking for periods of 15 min or more. Pain is alleviated with use of a pain pump w Lortab, injections, medications, PT in 2021, physician guided exercises daily since 2021, heat, repositioning and rest. Interventional pain procedures completed include BL RFA L3-L5 x4 (09/02, 05/10/24), L SI x1, Intrathecal Pump Implant, BL RFA L2-L4 (01/03) Patient is currently on Mobic, Ibu, Neurontin, Lidoderm Patient denies any side effects of the medication(s), denies excessive drowsiness or sleepiness, denies suicidal ideation and reports that the current pain medication is helping to control the pain and improve activities of daily living. Patient denies any motor or sensory deficits. Patient denies any fever or night sweats, denies any change in the bowel movements or urination. Physical Examination: -Constitutional: Cooperative. Not in acute distress . - Neurologic: Cranial nerve II to XII intact. No focal neurological deficits. - Psychatric: Alert & oriented x 3. Matching mood & appropriate affect. Judgment and insight intact. - Musculoskeletal: Cervical spine: Muscle bulk/ tone/ strength in the bilateral upper extremities normal Vertebral body tenderness to palpation over Spurling test positive Distraction test positive Facet loading test positive TTP Thoracic spine Muscle bulk / tone/ strength in the bilateral paraspinal muscles normal Vertebral body tender to palpation over Facet loading test positive TTP Lumbar spine: Motor bulk/ tone/ strength lower extremities , thigh and legs : 5/5 Deep tendon reflexes : Normal Knee Jerk. Normal Ankle Jerk . Vertebral body tenderness to palpation over Gonzales Test positive Lumbar Facet Loading Test positive BL L4-L5, L5-S1 Straight Leg Raise: positive at 30 degrees right side/ left side Gaenslen's Test positive Sacral spine : Severe tenderness over the Sacroiliac joint: right side / left side Range of motion: Flexion of the lumbar spine <60 degrees Range of motion: Extension of the lumbar spine <20 degrees Gaenslen's Test positive right side / left side Wyatt test: positive right side / left side Thigh Thrust Test positive right side / left side Sacral Thrust Test positive right side / left side Imaging: MRI non contrast of the lumbar spine from August 2022 reviewed Assessment and plan: Chronic LBP secondary to radiculopathy, spondylosis with facet arthropathy without myelopathy, L Sacroiliitis Recommendation of medication management of pain pump. Opiate/ narcotic agreement signed 04/15/24. UDS collected 06/12/24. UDS from 04/20/23 +Ethyl Glucuronide, +Hydrocodone, +Gabapentin. All questions answered. I have spent less than 30 minutes on patient care today. Dr Dinero was available by phone for the evaluation of this patient. The time was used to review the medical records including relevant urine studies and Prescription history (MAPs), review of the available imaging, evaluation and examination of the patient, coordination of care with the medical staff and if applicable referring physicians, as well as creation of the medical record PQRS Narrative: Smoking Status Former smoker Narcotic Agreement Date Signed 04/20/23 Hx Alcohol Use (MH) No Home Medications: Ambulatory Orders Esomeprazole Magnesium [NexIUM] 40 mg PO QAM 08/12/13 HYDROcodone/APAP 10-325MG [[place] 10-325] 1 tab PO TID PRN 08/12/13 Lidocaine 5% Patch [Lidoderm 5% Patch] 1 - 3 patch TOPICAL DAILY 08/12/13 Multivitamin with Iron [Daily Multivitamin with Iron] 1 tab PO QAM 08/12/13 Cholecalciferol [Vitamin D3] 5,000 unit PO QAM 06/17/15 DULoxetine HCL [Cymbalta] 90 mg PO HS 03/09/17 Ascorbic Acid [Vitamin C] 1,000 mg PO QAM 08/22/17 Magnesium Oxide [[place]] 1,000 mg PO QAM 08/22/17 Hydromorphone,Bupivacain,Baclo 1 dose INTRATHECA CONTINUOUS MDD pain pump 02/20/18 Temazepam [Restoril] 15 mg PO HS PRN 02/20/18 Gabapentin [Neurontin] 200 mg PO HS 03/02/20 Gabapentin [Neurontin] 300 mg PO QAM 03/02/20 Rosuvastatin [Crestor] 10 mg PO HS 09/07/22 Biotin [Bhbz-Wass-Ckkei] 10,000 mcg PO DAILY 07/13/23 Meloxicam [Mobic] 7.5 mg PO BID 01/11/24 Controlled Substance Measures - Controlled Substance Measures Is patient prescribed a controlled substance at discharge?: No
== END ==
LOC: PNWHC3 13:35
PROVIDERS: ATTEND Specialist
DX: M47.26 Other spondylosis with radiculopathy, lumbar region (principal); G89.29 Other chronic pain; M46.1 Sacroiliitis, not elsewhere classified; Z87.891 Personal history of nicotine dependence; Z88.0 Allergy status to penicillin; Z88.8 Allergy status to other drugs, medicaments and biological substances; Z88.6 Allergy status to analgesic agent; Z88.5 Allergy status to narcotic agent; Z91.048 Other nonmedicinal substance allergy status
CPT/HCPCS: 80307; G0463; 99212

== ENCOUNTER → 2024-09-19 | Day surgery (SDC) | payer MEDICARE, OTHER ==
[2024-09-19 11:02] VITALS: BP 136/102; PULSE 81; RESP 16; TEMP 97.3
--- NOTE | 2024-09-19 11:23 | P.PCN ---
Date of Procedure: 09/19/24 Procedure(s) Performed: Preoperative diagnosis: Lumbar post laminectomy, and chronic pain syndrome Status post intrathecal pump for chronic pain management Postoperative diagnosis: Lumbar post laminectomy, and chronic pain syndrome Status post intrathecal pump for chronic pain management PROCEDURES: 1. Intrathecal pump analysis. 2. Intrathecal pump reprogramming. 3. Intrathecal pump refill ANESTHESIA: None COMPLICATIONS: None PROCEDURE INDICATION: Patient is well known to pain clinic for management of intrathecal pump for chronic pain management. Patient denied any side effects with the medications. Rated his pain is 4-5 out of 10 in severity. On examination lower extremity muscle strength normal, no clonus. Patient came here for pump refill. PROCEDURE DESCRIPTION: The patient was seen and identified in the preoperative area. Risks, benefits, complications, and alternatives were discussed with the patient. The patient agreed to proceed with the procedure. Intrathecal pump was analyzed and displayed the following information: Type: SynchroMed Type II B Medication: Hydromorphone 16mg /ml infusion at 5.904 mg/day Bupivacaine 12 MG per mL infusion at 4.428 MG per day Baclofen 163 g per mL infusion at the rate of extreme 60.15 g per day Pump Volume: 40 ml Bar Nunn Volume: 6.9 ml PTM: Disabled At this time, the area of the intrathecal pump was exposed, prepped with ChloraPrep x2 , and draped in the usual sterile fashion. After which, the Conversion Logic template was used to identify the area of the skin overlying the refill port. After which, a 22-gauge Bhagat needle attached to an extension tubing, which was clamped, attached to a syringe and inserted through the skin into the refill port. At that point, 6 mL of clear fluid was aspirated. The tubing was reclamped. This was discarded. A new medication was then identified from pharmacy, . This was then attached to a filter, which was primed and subsequently injected into the pump in increments with intermittent aspiration to ensure placement into the intrathecal pump. At this point, the pump was reprogrammed. The dose was adjusted : none - patient refuses to go down on the medication as the current pain pump medical regimen helping her in controlling overall pain. Type: SynchroMed Type II B Medication: Hydromorphone 16mg /ml infusion at 5.904 mg/day Bupivacaine 12 MG per mL infusion at 4.428 MG per day Baclofen 163 g per mL infusion at the rate of extreme 60.15 g per day Pump Volume: 40 ml Bar Nunn Volume: 40 ml Lo Bar Nunn Alarm Date: 12 weeks PTM: Disabled The patient tolerated the procedure well and was sent home from the discharge area once meeting discharge criteria. Plan: The patient will follow up for further management and pump refills. Medications given : none . Urine drug screen was ordered today. Narcotic agreement discussed with the patient and patient signed a new opioid contract
== END ==
LOC: ORPAIN 10:49
PROVIDERS: ATTEND Specialist
DX: Z51.81 Encounter for therapeutic drug level monitoring (principal); M96.1 Postlaminectomy syndrome, not elsewhere classified; G89.4 Chronic pain syndrome; M47.816 Spondylosis without myelopathy or radiculopathy, lumbar region
CPT/HCPCS: 62370; J0475; J1171